=== PATIENT | female | born 1940 | race African-American/Black ===

== ENCOUNTER 2017-05-20 17:51 | Inpatient (IN) | payer MEDICARE, MEDICAID ==
[2017-05-20] MEDS ORDERED: EPINEPHrine 1 MG/10 ML Abboject SYRINGE ONE (18:05)
[2017-05-20] MEDS ORDERED: Piperacillin/Tazobactam 4.5 GM VIAL ONE (18:31)
[2017-05-20] MEDS ORDERED: Sodium Chloride 0.9% 100 ML ONE (18:32)
[2017-05-20] MEDS ORDERED: Succinylcholine Chloride 20 MG/ML 10 ml SYRINGE FS ONE (18:42)
[2017-05-20 18:51] LABS: Bilirubin Negative (Negative); Blood, Urine Negative (Negative); Glucose, Urine (Dipstick) Negative (Negative); Ketone, Urine Negative (Negative); Nitrite Negative (Negative); Protein, Urine (Dipstick) Negative (Neg-Trace); Urobilinogen 0.2 mg/dL (0.2-1.0)
[2017-05-20] MEDS ORDERED: Norepinephrine 8 MG/0.9% NS 250 ML ONE (18:57)
--- NOTE | 2017-05-20 19:02 | RAD ---
AP CHEST: History: Sepsis. Date: 05-20-17 Comparison: 10-15-16 FINDINGS: AP chest demonstrates EKG leads seen over the chest. There is diffuse airspace opacities throughout both lungs, upper and lower lobes, as well as right m iddle lobe. These areas of airspace opacities have developed since the previous exam. Findings jose manuel rning for multilobar areas of possible pneumonia. No evidence of effusions or pneumothorax seen. IMPRESSION: 1. Extensive bilateral airspace opacities concerning for possible pneumonia. 2. Extensive aortic vascular calcifications. POS: [facility]
[2017-05-20] MEDS ORDERED: Fentanyl 20 MCG/ML 250 ML ONE (19:04)
[2017-05-20 19:14] LABS: Oxyhemoglobin 89.3 % (94.0-97.0); Sodium 151 mmol/L (135-148)
[2017-05-20 19:17] LABS: Modified Allen's Test POSITIVE; Vent NO
[2017-05-20 19:29] LABS: Hematocrit 31.1 % (36.0-47.0); Mean Platelet Volume 11.1 fL (7.4-10.4); Red Blood Cell (RBC) Count 3.31 mill/uL (4.20-5.40); White Blood Cell (WBC) Count 3.6 thou/uL (4.8-10.8)
[2017-05-20 19:42] LABS: Lactic Acid - Sepsis 2.1 mmol/L (0.5-2.2)
[2017-05-20] MEDS ORDERED: Vancomycin HCl 750 MG in Sodium Chloride 0.9% 250 ML 250 ML IVPB SCH (19:45)
[2017-05-20 19:47] LABS: ALT (SGPT) 17 U/L (8-55); AST (SGOT) 18 U/L (5-34); Alkaline Phosphatase 100 U/L (40-150); Anion Gap 20 mmol/L (10-20); BUN (Urea Nitrogen) 38 mg/dL (9.8-20.1); Bilirubin, Total 0.6 mg/dL (0.2-1.2); CK (CPK) 26 U/L (29-168); Calc. Creatinine Clearance 0 mL/min (70-130); Calcium 8.4 mg/dL (7.8-10.44); Carbon Dioxide 16 mmol/L (23-31); Chloride 117 mmol/L (98-107); Estimated GFR-MDRD 26; Globulin 3.6 g/dL (2.4-3.5)
[2017-05-20 19:50] LABS: Troponin I Less than 0.010 ng/mL (< 0.028)
[2017-05-20 19:52] LABS: Anisocytosis SLIGHT = 6-15 cells (100X) (0-5/hpf); Band 32 % (5-11); Metamyelocyte 2 % (0-0); Neutrophil 45 % (42-75); Nucleated RBC 9 % (0); Polychromasia SLIGHT = 2-3 cells (100X) (0-2/hpf); Schistocytes SLIGHT = 2-5 cells (100X) (0-1/hpf); Target Cells SLIGHT = 2-5 cells (100X) (0-1/hpf); Vacuoles SLIGHT
--- NOTE | 2017-05-20 20:11 | RAD ---
AP CHEST: History: Status post central line placement. Date: 05-20-17 Comparison: Earlier in the day. FINDINGS: AP chest demonstrates placement of nasogastric tube, distal tip over the left upper quadrant of the abdomen. The patient has been intubated. Endotracheal tube is in good position. Distal tip above car imelda. There has been placement of a right jugular central line, distal tip at the SVC and right atrial emmy ction. Diffuse interstitial and airspace opacities seen throughout the lungs, unchanged since the previous exam from earlier in the day. IMPRESSION: Interval placement of nasogastric, endotracheal tube, as well as right jugular central line. No evid ence of right sided pneumothorax seen. POS: [facility]
[2017-05-20] MEDS ORDERED: Sodium Chloride 0.9% 1,000 ML IV SCH (20:15)
[2017-05-20 20:31] LABS: Oxyhemoglobin 90.4 % (94.0-97.0); Sodium 149 mmol/L (135-148)
[2017-05-20] MEDS ORDERED: Vecuronium 10 MG VIAL IV PRN (20:33)
[2017-05-20 20:34] LABS: Mechanical Tidal Volume 450 ml; Mode SIMV; Modified Allen's Test POSITIVE; Pressure Support 10 cmH2O; Vent YES
--- NOTE | 2017-05-20 20:56 | CT ---
CT BRAIN: History: 76-year-old with altered mental status and hypotension. Left sided weakness. Technique: Noncontrast enhanced CT of the brain was obtained from the base of the skull through the vertex. Brain and bone windows obtained. FINDINGS: Images demonstrate no evidence of acute intracranial masses, hemorrhages, strokes or contusions. No significant evidence of intracranial pathology noted. There does appear to be old areas of stroke in the right mireya as well as a prominent cordal fissure cyst. POS: [facility]
[2017-05-20] MEDS ORDERED: Ventilator Sedation Protocol 1 EACH FS SCH (21:06)
[2017-05-20] MEDS ORDERED: Norepinephrine 8 MG/0.9% NS 250 ML IVPB SCH (21:06)
[2017-05-20] MEDS ORDERED: CCU Electrolyte Replacement 1 EACH FS SCH (21:06)
[2017-05-20] MEDS ORDERED: DISCONTINUE PREVIOUS NARCOTIC PAIN MEDICATIONS AND BENZODIAZEPINES FS SCH (21:13)
[2017-05-20] MEDS ORDERED: CCU ELECTROLYTE REPLACEMENT PROTOCOL FS PRN (21:13)
[2017-05-20] MEDS ORDERED: Morphine 4 MG/ML Carpuject SLOW IVP PRN (21:13)
[2017-05-20] MEDS ORDERED: Potassium Chloride 40 MEQ in Sodium Chloride 0.9% 250 ML 250 ML IVPB PRN (21:13)
[2017-05-20] MEDS ORDERED: Potassium Chloride 40 MEQ in Premix Bag 1 BAG IVPB PRN (21:13)
[2017-05-20] MEDS ORDERED: Potassium Phosphate 9 MMOL in Sodium Chloride 0.9% 100 ML IVPB PRN (21:13)
[2017-05-20] MEDS ORDERED: Magnesium 2 GM/NS 0.9% 100 ML 2 GM in Premix Bag 1 BAG IVPB PRN (21:13)
[2017-05-20] MEDS ORDERED: Potassium Phosphate 12 MMOL in Sodium Chloride 0.9% 250 ML 250 ML IV PRN (21:13)
[2017-05-20] MEDS ORDERED: Lorazepam 2 MG/ML VIAL SLOW IVP PRN (21:13)
[2017-05-20] MEDS ORDERED: Fentanyl 20 MCG/ML 250 ML IVPB SCH (21:13)
[2017-05-20] MEDS ORDERED: Potassium Chloride 20 MEQ TAB PO PRN (21:13)
[2017-05-20] MEDS ORDERED: Propofol 1,000 MG/100 ML VIAL IV PRN (21:13)
[2017-05-20] MEDS ORDERED: Potassium Phosphate 15 MMOL in Sodium Chloride 0.9% 250 ML 250 ML IV PRN (21:13)
[2017-05-20] MEDS ORDERED: Magnesium Oxide 400 MG TAB PO PRN ×2 (21:13)
[2017-05-20] MEDS ORDERED: Cefepime 2 GM in Sodium Chloride 0.9% 100 ML IVPB SCH (21:30)
[2017-05-20] MEDS: Sodium Bicarbonate 100 MEQ in Dextrose 5% in Water 1,000 ML IV SCH ×2 (22:07)
[2017-05-20] MEDS: Sodium Chloride 0.9% 1,000 ML IV SCH (22:08)
[2017-05-20] MEDS: Enoxaparin Sodium 30 MG/0.3 ML SYRINGE SC SCH (22:15)
[2017-05-20 22:26] LABS: Lactic Acid - Sepsis 2.8 mmol/L (0.5-2.2)
--- NOTE | 2017-05-20 23:01 | HP ---
DATE OF ADMISSION: 05/20/2017 CHIEF COMPLAINT: Septic shock. HISTORY OF PRESENT ILLNESS: Ms. Mcconnell is a 76-year-old -[place] female with a history of ce rebrovascular disease, diabetes, hypertension, and diabetic retinopathy, who presented to the emerge ncy department today on sepsis alert. EMS brought her to the emergency department earlier today for low blood pressure. The family found her not responding appropriately. On the scene, the patient was noted to have left-sided weakness, facial droop, and really was not able to respond appropriately. The patient was able to take a deep breath on command and she was becoming more and more responsive but then became hypotensive and shavonne pped her systolic pressure to 74. Glucose was okay. She was given 1 liter fluid bolus of normal sa line and transported to the emergency department for evaluation. There she was found to be in septic shock and received several 2-3 liters of IV fluids in the ER for ultimately being transferred up to the ICU. The patient was intubated and sedated when I saw her and was unable to give any history. She was hy pothermic on presentation with a low blood pressure of 69/39. By the time, I had seen her and transferred her to the ICU, her pressure did come up to a normal ran ge and she was having good air on the vent. ER workup revealed bilateral patchy infiltrates, labs showed a white blood cell count slightly low a t 3.6, hemoglobin of 9.8, and hematocrit of 31.1. She did have 32% bands present. Blood gas presentation medical center showed a pH of 7.18 and her ER labs showed a creatinine of 2.23, which is certainly above her ba seline of around 1-1.2. We were called for admission. She was seen and evaluated initially in the ER and again when she arr ived on the unit. She required Levophed in the emergency department and we titrated up to a MAP of 65, on arrival to the unit, her systolic blood pressure in the 150s. The patient is unable to give any further history. PAST MEDICAL HISTORY: 1. Cerebrovascular disease with history of a stroke. 2. Diabetes mellitus type 2. 3. Hyperlipidemia. 4. Hypertension with diabetic retinopathy. PAST SURGICAL HISTORY: Hysterectomy. HOME MEDICATIONS: Lipitor, Protonix, thiamine, CoQ10, amlodipine, hydralazine, tramadol, Zestril, a nd aspirin. ALLERGIES: NKDA. FAMILY HISTORY: Not obtainable. SOCIAL HISTORY: Not obtainable due to mental status. REVIEW OF SYSTEMS: Not obtainable due to sedation, intubated status. PHYSICAL EXAMINATION: VITAL SIGNS: Temperature on arrival 91.9, pulse 72, blood pressure 69/39, respiratory rate 23, satt ing 100% on nonrebreather. Vital signs on arrival to the ICU showed her blood pressure 102/66 with a pulse of 82, satting 100% on a 100% FIO2 on SIMV with a tidal volume of 450, pressure support of 1 0. GENERAL: The patient was sedated on the ventilator. She appeared to be in no distress. HEENT: Normocephalic, atraumatic. The oral endotracheal tube in place. Mucous membranes are moist . Pupils are equal, round, and reactive to light bilaterally. NECK: Supple. There is no lymphadenopathy or JVD. LUNGS: Have coarse bilateral breath sounds. She had symmetrical chest excursion and good air movem ent. ABDOMEN: Soft. She had normoactive bowel sounds. It was not distended. EXTREMITIES: Showed no cyanosis, no clubbing. She was on a Angelita Hugger, so her extremities were wa rm. She had a decreased capillary refill around 4 seconds. NEUROLOGIC: Not testable due to mental status. She did withdraw from pain on the right more than t he left. MUSCULOSKELETAL: Normal to inspection. She has no inflamed joints and no palpable joint effusions. SKIN: Had no obvious lesions. LABORATORY DATA: CBC showed a white count of 3.6, hemoglobin 9.8, hematocrit of 31.1, platelet coun t of 132,000. She had 45% granulocytes and 32% bands. ABG: A pH of 7.18, pCO2 of 54, pO2 of 79, O2 sat 92% with a repeat on arrival to the ICU of 7.22 wi th a pCO2 down to 48. Labs in the ER showed a sodium of 148, potassium 5.4, chloride 117, carbon di oxide of 16 with anion gap of 20, creatinine was 2.23 from a baseline of 1.2-1.3, glucose of 144. L actic acid initially was 2.1 with repeat pending. Liver functions were fairly normal. CK low at 26 , CK-MB normal at 2.4, and troponin I negative at 0.010. Urinalysis was clean. A chest x-ray on arrival to the ER at 1801 hours showed extensive bibasilar airspace opacities jose manuel rning for pneumonia and vascular calcifications. Brain CT showed no acute intracranial abnormalitie s. Repeat chest x-ray at 1852 hours, post-intubation, nasogastric tube placement, and right IJ plac ement showed no evidence of pneumothorax and good positioning of her central venous catheter, and en dotracheal tube in good position. ASSESSMENT AND PLAN: 1. Septic shock: The patient did not respond to fluid resuscitation requiring pressors. She had b een adequately hydrated now with a total of 5 liters and we will continue IV fluids at 200 per hour. Pulmonary Critical Care has been consulted. She has central line placement and we will follow up on their recommendations. 2. Community-acquired pneumonia: The patient was in the hospital just under 60 days ago. She has diffuse bilateral airspace opacities consistent with atypical pneumonia. She received Zosyn in the ER, we will continue on cefepime, vancomycin, and levofloxacin. We will get respiratory bacterial a nd viral pathogen nucleic acid testing and check a Legionella urinary antigen. 3. Acute hypoxemic respiratory failure: The patient is currently intubated on the ventilator. Jyoti nunes has been managing upon arrival to the ICU. I appreciate their assistance. 4. Diabetes mellitus type 2: Sliding scale insulin will be instituted. 5. Hyperlipidemia. 6. Hypertension. Forty-five minutes of critical care time were spent upon admission to the ICU.
[2017-05-21] MEDS ORDERED: Dextrose 50% Abboject 50 ML SYRINGE IVP PRN (00:26)
[2017-05-21] MEDS ORDERED: Dextrose 5% in Water 1,000 ML IV PRN (00:26)
[2017-05-21] MEDS: HumaLOG 300 UNITS/3 ML VIAL SC PRN ×7 (00:33→23:58)
[2017-05-21 01:02] LABS: LegU Control Bar Appear? YES (CONTROL BAR); LegionellaU Control Bkground? CLEAR/WHITE (CLR/WHITE)
[2017-05-21] MEDS: Sodium Chloride 0.9% 1,000 ML IV SCH (02:29)
[2017-05-21 04:07] LABS: Anion Gap 18 mmol/L (10-20); BUN (Urea Nitrogen) 38 mg/dL (9.8-20.1); Calc. Creatinine Clearance 16 mL/min (70-130); Calcium 8.3 mg/dL (7.8-10.44); Carbon Dioxide 17 mmol/L (23-31); Chloride 115 mmol/L (98-107); Estimated GFR-MDRD 25
[2017-05-21 04:34] LABS: Band 31 % (5-11); Hematocrit 30.2 % (36.0-47.0); Mean Platelet Volume 9.2 fL (7.4-10.4); Metamyelocyte 20 % (0-0); Neutrophil 40 % (42-75); Nucleated RBC 1 % (0); Polychromasia SLIGHT = 2-3 cells (100X) (0-2/hpf); Red Blood Cell (RBC) Count 3.38 mill/uL (4.20-5.40); White Blood Cell (WBC) Count 4.4 thou/uL (4.8-10.8)
--- NOTE | 2017-05-21 05:53 | CON ---
DATE OF CONSULTATION: 05/20/2017 HISTORY OF PRESENT ILLNESS: Ms. Mcconnell is a 76-year-old female. She presented with altered mental s tatus and respiratory distress. She subsequently has been intubated and had a central line placed. I was consulted to assist in her management. Chest radiograph compared to old films shows patchy bi lateral alveolar infiltrates. Head CT was done on transport up to the ICU that does not show any acute hemorrhage. She is on a low dose of Levophed. She has had at least 3 L of fluid in the emergency department. A ntimicrobial therapy has been started by our hospitalist. PAST MEDICAL HISTORY: Remarkable for hypertension, chronic kidney disease, left hemiparesis after s troke with recovery, lipid disorder, type 2 diabetes, and hysterectomy. SOCIAL HISTORY: Nonsmoker, nondrinker, apparently lives with her daughter. MEDICATIONS: Have been reviewed. REVIEW OF SYSTEMS: Not obtainable. She is an intubated patient with a pressure over 100 systolic o n 10 mcg of Levophed. She has a right internal jugular catheter. PHYSICAL EXAMINATION: NECK: Supple. LUNGS: Remarkable for rhonchi anteriorly. HEART: Regular rhythm. ABDOMEN: Soft and nontender, without guarding or rigidity. EXTREMITIES: Without asymmetry. LABORATORY AND X-RAY FINDINGS: White count 3.6, hemoglobin 9.8, platelets 132, 32% bands on a perip heral smear. Sodium 148, potassium 5.4, chloride 117, bicarbonate 16, BUN 38, creatinine 2.23. Her creatinine was 1.07 in September. Blood gas showed pH 7.18, pCO2 of 54, and pO2 of 79. IMPRESSION: 1. Respiratory failure associated with pneumonia. 2. Clinical sepsis and intravascular volume depletion. 3. Hypernatremia and hyperchloremia, most likely secondary to intravascular volume depletion. 4. Borderline hyperkalemia that improved with improved renal perfusion. 5. History of diabetes with hemoglobin A1c in February of this year at 9.5. 6. History of cerebrovascular accident. 7. Hypoalbuminemia today with greater than 1000 glucose, but surprisingly only 30 mg/dL protein in her urine. 8. Cachexia by exam. PLAN: Ventilation pressor support, antimicrobial therapy. Check cortisol level. Hopefully, we eddie l see clinical improvement in the next 24-48 hours.
[2017-05-21 07:00] LABS: Oxyhemoglobin 95.7 % (94.0-97.0); Sodium 148 mmol/L (135-148)
[2017-05-21 07:03] LABS: Mechanical Tidal Volume 450 ml; Mode SIMV; Modified Allen's Test POSITIVE; Pressure Support 10 cmH2O; Vent YES
--- NOTE | 2017-05-21 08:43 | RAD ---
PORTABLE SEMI UPRIGHT FRONTAL CHEST RADIOGRAPH: Date: 05-21-17 Comparison: 05-20-17 History: Pneumonia, intubated patient. FINDINGS: Endotracheal tube and nasogastric tube are in proper position. There is atherosclerotic calcificatio n of the aorta arch. There is no pneumothorax seen on either side. Mild blunting of bilateral costophrenic angles suggest small volume bilateral pleural effusion. Ther e is coarse linear density in the perihilar regions in both lung bases suggesting interstitial opaci ty. There is bilateral perihilar and basilar airspace disease, slightly improved since the 05-20-17 exam. IMPRESSION: Interstitial and alveolar opacity in the perihilar regions in both lung bases, slightly improved. Th is suggests improving pulmonary edema. Infectious pneumonitis or aspiration is a possibility. Contin ued follow up to full resolution is advised. POS: [facility]
[2017-05-21] MEDS ORDERED: FLU VACC TS2017-18 (>65YR) 0.5 ML SYRINGE IM ONE (09:00)
[2017-05-21] MEDS: Cefepime 2 GM, Admixture Fee 1 EACH in Sodium Chloride 0.9% 100 ML IVPB SCH (09:21)
[2017-05-21] MEDS: Famotidine/PF 20 mg/2ml Vial SLOW IVP SCH (09:22)
[2017-05-21] MEDS: Sodium Bicarbonate 100 MEQ in Dextrose 5% in Water 1,000 ML IV SCH ×4 (09:59→19:57)
[2017-05-21] MEDS ORDERED: Sodium Chloride 0.9% 1,000 ML IV SCH (10:15)
--- NOTE | 2017-05-21 10:31 | PRG ---
DATE OF SERVICE: 05/21/2017 CRITICAL CARE PROGRESS NOTE Thirty-five minutes critical care time. SUBJECTIVE: Ms. Mcconnell was admitted last night with septic shock secondary to pneumonia. She has ac regla respiratory failure and is currently on mechanical ventilation. Her daughter is at the bedside while I am examining the patient. PHYSICAL EXAMINATION: VITAL SIGNS: Temperature is 97.6, pulse 57, blood pressure 119/60. She is currently on Levophed at 2 mcg per minute. She is also on sodium bicarbonate drip. HEENT: Unremarkable. NECK: No JVD. LUNGS: Fairly clear. CARDIAC: S1 and S2 regular, without murmur. ABDOMEN: Soft, nontender. EXTREMITIES: No clubbing, cyanosis or edema. She has very little urine output. Her CV pressure is about x0. LABORATORY DATA: Sodium 148, potassium 5.4, chloride 117, CO2 16, BUN 38, creatinine 2.2, and gluco se 144. Cortisol level was 18.9, pH 7.39, pCO2 of 28, pO2 of 87 on SIMV rate 28, tidal volume of 45 0, PEEP 5, pressure support 10, FiO2 40%. White blood cell count 4.4, hemoglobin 9.8, hematocrit 30 .2, and platelet count 144. ASSESSMENT: 1. Pneumonia. 2. Septic shock. 3. Severe hypovolemia. PLAN: 1. Bolus a liter of normal saline and monitor CVP. 2. Continue cefepime, Levaquin, and vancomycin, renal base doses. 3. Add vitamin C and thiamine in addition to hydrocortisone she is already getting. 4. Pepcid for GI prophylaxis. 5. Enoxaparin for DVT prophylaxis. 6. Discussed with family at bedside.
--- NOTE | 2017-05-21 13:34 | PDOC.PN ---
- Subjective Encounter Start Date: 05/21/17 Encounter Start Time: 13:32 Patient seen at bedside. No overnight events, no new complaints. - Objective Resuscitation Status: Resuscitation Status FULL:Full Resuscitation MAR Reviewed: Yes Vital Signs & Weight: Vital Signs (12 hours) Temp Pulse Resp BP Pulse Ox 05/21/17 12:00 97.7 F 22 H 05/21/17 10:21 73 107/60 05/21/17 10:00 22 H 05/21/17 08:00 97.6 F 28 H 05/21/17 07:43 97.8 F 78 28 H 100 05/21/17 07:00 97.8 F 05/21/17 06:33 71 150/83 H 05/21/17 06:00 28 H 05/21/17 04:00 98.1 F 28 H 05/21/17 02:24 86 141/61 H 05/21/17 02:00 28 H Most Recent Monitor Data Heart Rate from ECG 55 NIBP 84/43 NIBP BP-Mean 55 Respiration from ECG 22 SpO2 100 I&O: 05/20/17 05/21/17 05/22/17 06:59 06:59 06:59 Intake Total 2449.8 1019.6 Output Total 340 165 Balance 2109.8 854.6 Result Diagrams: 05/21/17 03:27 05/21/17 03:27 Additional Labs: Accuchecks 05/21/17 05/21/17 05/21/17 11:26 08:14 06:02 POC Glucose 212 H 140 H 151 H 05/21/17 05/21/17 05/21/17 04:00 02:13 00:09 POC Glucose 184 H 204 H 226 H 05/20/17 22:35 POC Glucose 195 H Phys Exam - Physical Examination Constitutional: NAD Intubated, Sedated ET Tube present Neck: no JVD Respiratory: clear to auscultation bilateral Bradycardia Gastrointestinal: soft Musculoskeletal: pulses present Dx/Plan (1) Acute respiratory failure Code(s): J96.00 - ACUTE RESPIRATORY FAILURE, UNSP W HYPOXIA OR HYPERCAPNIA Status: Acute (2) Bradycardia Code(s): R00.1 - BRADYCARDIA, UNSPECIFIED Status: Acute (3) Chronic kidney disease (CKD) Code(s): N18.9 - CHRONIC KIDNEY DISEASE, UNSPECIFIED Status: Chronic (4) DM2 (diabetes mellitus, type 2) Status: Chronic (5) Pneumonia Code(s): J18.9 - PNEUMONIA, UNSPECIFIED ORGANISM Status: Acute - Plan cont current plan of care, lyn catheter, continue antibiotics, respiratory therapy, DVT proph w/lovenox * Ventilator management per PCCM. * Broad spectrum antibiotics * IV fluids/Levophed- monitor CVP * Monitor Bun/Cr * Bradycardia- sedation related? Continue to Monitor * Daily Labs
[2017-05-21] MEDS: Enoxaparin Sodium 30 MG/0.3 ML SYRINGE SC SCH (20:00)
[2017-05-22 05:35] LABS: Band 13 % (5-11); Hematocrit 28.1 % (36.0-47.0); Mean Platelet Volume 9.6 fL (7.4-10.4); Neutrophil 82 % (42-75); Nucleated RBC 1 % (0); Red Blood Cell (RBC) Count 3.18 mill/uL (4.20-5.40); White Blood Cell (WBC) Count 11.1 thou/uL (4.8-10.8)
[2017-05-22 05:36] LABS: Anion Gap 17 mmol/L (10-20); BUN (Urea Nitrogen) 37 mg/dL (9.8-20.1); Calc. Creatinine Clearance 16 mL/min (70-130); Carbon Dioxide 23 mmol/L (23-31); Chloride 108 mmol/L (98-107); Estimated GFR-MDRD 24
[2017-05-22 05:43] LABS: Troponin I 0.023 ng/mL (< 0.028)
[2017-05-22] MEDS: HumaLOG 300 UNITS/3 ML VIAL SC PRN ×3 (05:58→16:48)
[2017-05-22] MEDS: Sodium Chloride 0.45% 1,000 ML IV SCH ×3 (08:10→23:00)
[2017-05-22] MEDS: Sodium Bicarbonate 100 MEQ in Dextrose 5% in Water 1,000 ML IV SCH ×2 (08:32)
--- NOTE | 2017-05-22 08:40 | PRG ---
DATE OF SERVICE: 05/22/2017 Thirty-five minutes critical care time. SUBJECTIVE: The patient remains intubated on mechanical ventilation. There have been no overt haider ges overnight. OBJECTIVE: VITAL SIGNS: Temperature is 97.4 with no fever overnight, pulse 40s to 60s, blood pressure 125/68. She is still on Levophed 0.5 mcg per minute. Total intake 3866, output 675. HEENT: Unremarkable. NECK: No JVD. CHEST: Fairly clear without wheezing. CARDIAC: S1 and S2 regular. ABDOMEN: Soft. EXTREMITIES: No edema. LABORATORY DATA: Sodium 141, potassium 3.9, chloride 108, CO2 of 23, BUN 37, creatinine 2.3, glucos e 174, troponin 0.023, pH 7.53, pCO2 of 26, PO2 of 107. White cell count 11.1, hematocrit 28.1, michael telet count 122. Chest x-ray shows improved bilateral infiltrates. ASSESSMENT: 1. Pneumonia. 2. Acute hypoxic respiratory failure. 3. Acidosis, which is improved. 4. Septic shock, which is improved. PLAN: 1. Decrease respiratory rate on vent. 2. Discontinue bicarbonate drip. 3. Discontinue vancomycin, as Streptococcus is growing out of her cultures. 4. Begin weaning with hopeful extubation tomorrow.
[2017-05-22] MEDS ORDERED: Cefepime 2 GM, Admixture Fee 1 EACH in Sodium Chloride 0.9% 100 ML IVPB SCH (09:00)
[2017-05-22] MEDS: Famotidine/PF 20 mg/2ml Vial SLOW IVP SCH (09:05)
[2017-05-22 09:52] LABS: Oxyhemoglobin 96.9 % (94.0-97.0)
[2017-05-22 09:53] LABS: Mechanical Tidal Volume 450 ml; Mode SIMV; Modified Allen's Test POSITIVE; Pressure Support 10 cmH2O; Sodium 143 mmol/L (135-148); Vent YES
[2017-05-22] MEDS: Cefepime 2 GM, Admixture Fee 1 EACH in Sodium Chloride 0.9% 100 ML IVPB SCH (10:00)
--- NOTE | 2017-05-22 10:05 | RAD ---
PORTABLE CHEST ONE VIEW: Date: 05-22-17 Time: 5:29 a.m. History: Respiratory failure. FINDINGS/IMPRESSION: Comparison made with exam from previous day. There is mild interval increase in density in the right lower lung. Remainder of the exam is otherwise stable. POS: [facility]
--- NOTE | 2017-05-22 13:36 | PDOC.PN ---
- Subjective Encounter Start Date: 05/22/17 Encounter Start Time: 13:35 Patient seen at bedside. No overnight events, remains on the ventilator no new complaints. - Objective Resuscitation Status: Resuscitation Status FULL:Full Resuscitation Vital Signs & Weight: Vital Signs (12 hours) Temp Pulse Resp BP Pulse Ox 05/22/17 12:00 98.1 F 12 05/22/17 10:45 55 L 140/57 L 05/22/17 10:00 12 05/22/17 08:00 97.4 F L 53 L 12 98 05/22/17 06:57 52 L 125/68 05/22/17 06:00 22 H 05/22/17 04:00 22 H 05/22/17 03:00 97.4 F L 05/22/17 02:25 66 137/60 05/22/17 02:00 22 H Weight Admit Weight 113 lb Weight 116 lb 9.992 oz Most Recent Monitor Data Heart Rate from ECG 52 NIBP 128/56 NIBP BP-Mean 84 Respiration from ECG 17 SpO2 99 I&O: 05/21/17 05/22/17 05/23/17 06:59 06:59 06:59 Intake Total 2449.8 3866.4 292.5 Output Total 340 675 160 Balance 2109.8 3191.4 132.5 Result Diagrams: 05/22/17 04:58 05/22/17 04:58 Additional Labs: Accuchecks 05/22/17 05/22/17 05/21/17 10:32 05:56 23:57 POC Glucose 177 H 214 H 171 H 05/21/17 18:08 POC Glucose 267 H Phys Exam - Physical Examination Constitutional: NAD HEENT: moist MMs Neck: no JVD Respiratory: clear to auscultation bilateral Cardiovascular: RRR Gastrointestinal: soft Musculoskeletal: no edema Dx/Plan (1) Acute respiratory failure Code(s): J96.00 - ACUTE RESPIRATORY FAILURE, UNSP W HYPOXIA OR HYPERCAPNIA Status: Acute (2) Bradycardia Code(s): R00.1 - BRADYCARDIA, UNSPECIFIED Status: Acute (3) Chronic kidney disease (CKD) Code(s): N18.9 - CHRONIC KIDNEY DISEASE, UNSPECIFIED Status: Chronic (4) DM2 (diabetes mellitus, type 2) Status: Chronic (5) Pneumonia Code(s): J18.9 - PNEUMONIA, UNSPECIFIED ORGANISM Status: Acute - Plan cont current plan of care, lyn catheter, continue antibiotics, respiratory therapy * Ventilator Management per PCCM. Weaning parameters for extubation tomorrow * Narrow antibiotics. Discontinue Vancomycin * D/C Bicarbonate drip * Tube Feeds * DVT/GI ppx
[2017-05-22] MEDS: Enoxaparin Sodium 30 MG/0.3 ML SYRINGE SC SCH (21:57)
[2017-05-22] MEDS ORDERED: Vancomycin HCl 1 GM in Premix Bag 1 BAG IVPB SCH (22:00)
[2017-05-23] MEDS: HumaLOG 300 UNITS/3 ML VIAL SC PRN ×2 (05:02→10:52)
[2017-05-23 05:07] LABS: Anion Gap 16 mmol/L (10-20); BUN (Urea Nitrogen) 38 mg/dL (9.8-20.1); Calc. Creatinine Clearance 15 mL/min (70-130); Calcium 7.9 mg/dL (7.8-10.44); Carbon Dioxide 23 mmol/L (23-31); Chloride 107 mmol/L (98-107); Estimated GFR-MDRD 22
[2017-05-23 05:15] LABS: Band 17 % (5-11); Hematocrit 30.3 % (36.0-47.0); Mean Platelet Volume 10.7 fL (7.4-10.4); Neutrophil 76 % (42-75); Nucleated RBC 2 % (0); White Blood Cell (WBC) Count 11.8 thou/uL (4.8-10.8)
--- NOTE | 2017-05-23 08:14 | PRG ---
DATE OF SERVICE: 05/23/2017 A 35 minutes critical care time. SUBJECTIVE: The patient remains intubated on mechanical ventilation. She will wake up when sedatio n is off. OBJECTIVE: VITAL SIGNS: On exam, temperature 98.7, pulse 65, blood pressure 155/70, O2 saturation 96%, 24-hour intake 2932, output 630. HEENT: Unremarkable. NECK: No JVD. LUNGS: Fairly clear. CARDIAC: S1 and S2 regular. ABDOMEN: Soft. EXTREMITIES: No edema. X-RAY FINDINGS: Chest x-ray shows faint right lower lobe infiltrate. ET tube is in good position, central line in good position. LABORATORY DATA: Sodium 142, potassium 4.3, chloride 107, CO2 23, BUN 38, creatinine 2.6, glucose 1 62. White blood cell count 11.8, hematocrit 30.3, platelet count 124. ASSESSMENT: 1. Acute respiratory failure requiring mechanical ventilation. 2. Pneumonia. 3. Improved metabolic acidosis. 4. Renal insufficiency. 5. Resolved septic shock. PLAN: 1. I would like to perform spontaneous breathing trial and reassess her for the potential for extub ation. 2. Continue IV antibiotics. 3. Speak with family when they are available.
--- NOTE | 2017-05-23 08:20 | RAD ---
PORTABLE CHEST: History: Dyspnea. CCU follow up. Comparison: 05-22-17 FINDINGS/IMPRESSION: Cardiomegaly. Bibasilar infiltrates and/or atelectasis with evidence of small effusions. ET tube and NG tube unchanged. Chest not significantly changed from yesterday. POS: [facility]
[2017-05-23] MEDS ORDERED: Cefepime 2 GM, Admixture Fee 1 EACH in Sodium Chloride 0.9% 100 ML IVPB SCH (09:00)
[2017-05-23] MEDS: Cefepime 1 GM, Admixture Fee 1 EACH in Sodium Chloride 0.9% 100 ML IVPB SCH (09:10)
[2017-05-23] MEDS: Famotidine/PF 20 mg/2ml Vial SLOW IVP SCH (09:11)
[2017-05-23] MEDS: Sodium Chloride 0.45% 1,000 ML IV SCH ×2 (09:12→23:01)
--- NOTE | 2017-05-23 11:19 | PDOC.PN ---
- Subjective Encounter Start Date: 05/23/17 Encounter Start Time: 11:17 - Objective Resuscitation Status: Resuscitation Status FULL:Full Resuscitation MAR Reviewed: Yes Vital Signs & Weight: Vital Signs (12 hours) Temp Pulse Resp BP Pulse Ox 05/23/17 06:21 94 155/70 H 05/23/17 06:15 103 H 14 90 L 05/23/17 06:00 12 05/23/17 04:00 98.7 F 15 05/23/17 02:14 70 147/61 H 05/23/17 02:00 12 05/23/17 00:00 98.2 F 12 Weight Admit Weight 113 lb Weight 118 lb 9.739 oz Most Recent Monitor Data Heart Rate from ECG 62 NIBP 176/80 NIBP BP-Mean 109 Respiration from ECG 1 SpO2 98 I&O: 05/22/17 05/23/17 05/24/17 06:59 06:59 06:59 Intake Total 3866.4 2932.4 Output Total 675 630 Balance 3191.4 2302.4 Result Diagrams: 05/23/17 04:20 05/23/17 04:20 Additional Labs: Accuchecks 05/23/17 05/23/17 05/22/17 10:47 04:11 22:12 POC Glucose 167 H 198 H 121 H 05/22/17 16:47 POC Glucose 183 H Phys Exam - Physical Examination Constitutional: NAD HEENT: moist MMs Neck: no JVD Respiratory: clear to auscultation bilateral Cardiovascular: RRR Gastrointestinal: soft Musculoskeletal: pulses present Neurological: moves all 4 limbs Dx/Plan (1) Acute respiratory failure Code(s): J96.00 - ACUTE RESPIRATORY FAILURE, UNSP W HYPOXIA OR HYPERCAPNIA Status: Acute (2) Bradycardia Code(s): R00.1 - BRADYCARDIA, UNSPECIFIED Status: Resolved (3) Chronic kidney disease (CKD) Code(s): N18.9 - CHRONIC KIDNEY DISEASE, UNSPECIFIED Status: Chronic (4) DM2 (diabetes mellitus, type 2) Status: Chronic (5) Pneumonia Code(s): J18.9 - PNEUMONIA, UNSPECIFIED ORGANISM Status: Acute - Plan cont current plan of care, lyn catheter, continue antibiotics, neonatal social worker , respiratory therapy, DVT proph w/SCDs * Ventilator Management per [facility]. Begin weaning trials and evaluate for extubation * IV antibiotics (Levaquin) * Duonebs/Steroids * Monitor Renal function * Daily Labs * GI/DVT ppx
[2017-05-23] MEDS: Enoxaparin Sodium 30 MG/0.3 ML SYRINGE SC SCH (20:58)
[2017-05-24] MEDS: HumaLOG 300 UNITS/3 ML VIAL SC PRN ×3 (04:34→22:25)
[2017-05-24 05:08] LABS: Anion Gap 20 mmol/L (10-20); BUN (Urea Nitrogen) 39 mg/dL (9.8-20.1); Calc. Creatinine Clearance 17 mL/min (70-130); Carbon Dioxide 19 mmol/L (23-31); Chloride 107 mmol/L (98-107); Estimated GFR-MDRD 25
[2017-05-24 05:55] LABS: Band 6 % (5-11); Hematocrit 29.2 % (36.0-47.0); Mean Platelet Volume 9.4 fL (7.4-10.4); Neutrophil 89 % (42-75); Nucleated RBC 22 % (0); Red Blood Cell (RBC) Count 3.29 mill/uL (4.20-5.40); White Blood Cell (WBC) Count 10.2 thou/uL (4.8-10.8)
[2017-05-24] MEDS: Famotidine 20 MG TAB PER TUBE SCH (09:00)
--- NOTE | 2017-05-24 09:07 | PRG ---
DATE OF SERVICE: 05/24/2017 A 30 minutes critical care time. SUBJECTIVE: The patient is doing very well, has been on spontaneous breathing trial this morning an d passed. PHYSICAL EXAMINATION: VITAL SIGNS: Temperature is 98.6, pulse 97, blood pressure 171/81, 24-hour intake 2598, output 2095 . HEENT: Unremarkable. NECK: No JVD. CHEST: Clear to auscultation without wheezing. CARDIAC: S1 and S2 regular. ABDOMEN: Soft. EXTREMITIES: No edema. X-RAY FINDINGS: Chest x-ray shows hyperinflation and clearing infiltrates bilaterally. LABORATORY DATA: White blood cell count 10, hematocrit 39.2, platelet count 146. PH 7.53, pCO2 of 26, PO2 of 107. Sodium 142, potassium 4.3, chloride 107, CO2 19, BUN 39, creatinine 2.3, glucose 19 4. ASSESSMENT: 1. Acute respiratory failure requiring mechanical ventilation. 2. Pneumonia. 3. Chronic renal insufficiency. 4. Resolved septic shock. PLAN: 1. The patient was extubated. She was able to verbalize after. 2. Initiate speech therapy consult to make sure it is safe for swallowing. 3. Continue IV antibiotics. 4. I cleaned up her medication list. 5. Can probably go to the floor tomorrow if she has a good day today.
--- NOTE | 2017-05-24 09:53 | RAD ---
PORTABLE CHEST 1 VIEW: Date: 05/24/17 Time: 0452 hours HISTORY: Respiratory failure. FINDINGS/IMPRESSION: No significant interval change is seen since the previous day's exam. POS: [facility]
[2017-05-24] MEDS ORDERED: Sterile Water 10 ML ONE (10:14)
[2017-05-24] MEDS: Cefepime 1 GM, Admixture Fee 1 EACH in Sodium Chloride 0.9% 100 ML IVPB SCH (10:49)
[2017-05-24] MEDS: Sodium Chloride 0.45% 1,000 ML IV SCH ×2 (10:55→20:48)
--- NOTE | 2017-05-24 15:36 | PDOC.PN ---
- Subjective Encounter Start Date: 05/24/17 Encounter Start Time: 15:00 Subjective: Extubated this AM, mumbling and not understandable - Objective Resuscitation Status: Resuscitation Status FULL:Full Resuscitation MAR Reviewed: Yes Vital Signs & Weight: Vital Signs (12 hours) Temp Pulse Resp Pulse Ox 05/24/17 14:15 85 14 05/24/17 12:00 97.8 F 100 05/24/17 10:21 90 24 H 05/24/17 09:00 98.3 F 05/24/17 08:00 98.3 F 85 14 99 05/24/17 06:10 92 05/24/17 06:00 19 05/24/17 04:00 98.6 F 16 Weight Admit Weight 113 lb Weight 121 lb 0.54 oz Most Recent Monitor Data Heart Rate from ECG 88 NIBP 103/81 NIBP BP-Mean 87 Respiration from ECG 21 SpO2 87 I&O: 05/23/17 05/24/17 05/25/17 06:59 06:59 06:59 Intake Total 2932.4 2598.2 41.6 Output Total 630 2095 945 Balance 2302.4 503.2 -903.4 Result Diagrams: 05/24/17 04:40 05/24/17 04:40 Additional Labs: Accuchecks 05/24/17 05/24/17 05/23/17 11:40 04:30 21:00 POC Glucose 165 H 195 H 172 H 05/23/17 17:59 POC Glucose 137 H Phys Exam - Physical Examination Constitutional: NAD HEENT: moist MMs Respiratory: no wheezing, no rales, no rhonchi Cardiovascular: RRR Gastrointestinal: soft Musculoskeletal: no edema decreased strength in LUE Psychiatric: normal affect Dx/Plan (1) Septic shock Code(s): A41.9 - SEPSIS, UNSPECIFIED ORGANISM; R65.21 - SEVERE SEPSIS WITH SEPTIC SHOCK Status: Resolved (2) Pneumonia Code(s): J18.9 - PNEUMONIA, UNSPECIFIED ORGANISM Status: Acute Comment: on Levaquin and Cefepime (3) Acute respiratory failure Code(s): J96.00 - ACUTE RESPIRATORY FAILURE, UNSP W HYPOXIA OR HYPERCAPNIA Status: Resolved Comment: Extubated this AM (4) DM2 (diabetes mellitus, type 2) Status: Chronic Comment: Blood sugars less than 200 (5) HTN (hypertension) Code(s): I10 - ESSENTIAL (PRIMARY) HYPERTENSION Status: Chronic - Plan cont current plan of care, continue antibiotics, DVT proph w/lovenox * . - Discharge Day Encounter end time: 16:00
[2017-05-24] MEDS: Enoxaparin Sodium 30 MG/0.3 ML SYRINGE SC SCH (20:49)
[2017-05-25 04:28] LABS: Anion Gap 18 mmol/L (10-20); BUN (Urea Nitrogen) 38 mg/dL (9.8-20.1); Calc. Creatinine Clearance 21 mL/min (70-130); Calcium 8.5 mg/dL (7.8-10.44); Carbon Dioxide 21 mmol/L (23-31); Chloride 109 mmol/L (98-107); Estimated GFR-MDRD 30
[2017-05-25 04:34] LABS: Band 1 % (5-11); Hematocrit 29.9 % (36.0-47.0); Mean Platelet Volume 9.6 fL (7.4-10.4); Neutrophil 94 % (42-75); Nucleated RBC 4 % (0); Red Blood Cell (RBC) Count 3.32 mill/uL (4.20-5.40); White Blood Cell (WBC) Count 11.3 thou/uL (4.8-10.8)
[2017-05-25] MEDS: Sodium Chloride 0.45% 1,000 ML IV SCH ×2 (05:45→15:55)
--- NOTE | 2017-05-25 08:30 | RAD ---
CHEST 1 VIEW: Date: 05/25/17 COMPARISON: 05/24/17. FINDINGS: Stable right-sided central venous catheter. Interval removal of endotracheal and nasogastric tube. P ersistent atherosclerosis. Persistent opacification in lung bases with small bilateral effusions. Pa renchymal changes in the left and right lung base are also noted. Hyperinflation is present. No pneu mothorax. IMPRESSION: 1. Persistent pleural and parenchymal changes in lung bases. 2. Hyperinflation. 3. Atherosclerosis. POS: DEWEY
[2017-05-25] MEDS: Famotidine 20 MG TAB PER TUBE SCH (08:55)
[2017-05-25] MEDS: Cefepime 1 GM, Admixture Fee 1 EACH in Sodium Chloride 0.9% 100 ML IVPB SCH (09:20)
--- NOTE | 2017-05-25 09:57 | PDOC.PN ---
- Subjective Encounter Start Date: 05/25/17 Encounter Start Time: 08:00 -: non-verbal Pt seen and examined on rounds. I have not seen the patient in days since her admit date. Pt has been extubated yesterday, remains stable on NC. No acute events reported overnight. Pt mumbles to verbal and tactile stimulation, but is not conversant. No f/C, no n/V/D/C overnight. Cough sounds wet and very weak. POS not obtainable due to pt condition - Objective Resuscitation Status: Resuscitation Status FULL:Full Resuscitation MAR Reviewed: Yes Vital Signs & Weight: Vital Signs (12 hours) Temp Pulse Resp Pulse Ox 05/25/17 07:26 98.5 F 105 H 15 98 05/25/17 07:00 98.5 F 05/25/17 06:13 79 21 H 05/25/17 04:00 97.5 F L 05/25/17 02:50 100 05/25/17 00:00 97.4 F L 05/24/17 23:07 81 22 H 100 Weight Admit Weight 113 lb Weight 124 lb 8.979 oz Most Recent Monitor Data Heart Rate from ECG 87 NIBP 143/81 NIBP BP-Mean 96 Respiration from ECG 16 SpO2 100 I&O: 05/24/17 05/25/17 05/26/17 06:59 06:59 06:59 Intake Total 2598.2 2490.6 Output Total 2095 2702 300 Balance 503.2 -211.4 -300 Result Diagrams: 05/25/17 03:27 05/25/17 03:27 Additional Labs: Accuchecks 05/25/17 05/24/17 05/24/17 04:33 22:22 16:47 POC Glucose 145 H 175 H 139 H 05/24/17 11:40 POC Glucose 165 H Radiology Reviewed by me: Yes EKG Reviewed by me: Yes Phys Exam - Physical Examination Constitutional: NAD chronically ill-appearing HEENT: PERRLA, sclera anicteric, oral pharynx no lesions Neck: no nodes, no JVD, supple, full ROM coarse bilaterla rales, no wheezing, poor air exchange. Cardiovascular: RRR, no rub 2-3/6 ILENE LUSB Gastrointestinal: soft, non-tender, no distention, positive bowel sounds Musculoskeletal: pulses present, edema present Neurological: moves all 4 limbs Lymphatic: no nodes Skin: no rash, cap refill <2 seconds Dx/Plan (1) Chronic kidney disease (CKD) Code(s): N18.9 - CHRONIC KIDNEY DISEASE, UNSPECIFIED Status: Chronic Qualifiers: Chronic kidney disease stage: stage 3 (moderate) Qualified Code(s): N18.3 - Chronic kidney disease, stage 3 (moderate) Comment: YAYA on CKD 3 improving slowly (2) Septic shock Code(s): A41.9 - SEPSIS, UNSPECIFIED ORGANISM; R65.21 - SEVERE SEPSIS WITH SEPTIC SHOCK Status: Resolved (3) Pneumonia Code(s): J18.9 - PNEUMONIA, UNSPECIFIED ORGANISM Status: Acute Qualifiers: Pneumonia type: due to unspecified organism Laterality: bilateral Lung location: lower lobe of lung Qualified Code(s): J18.9 - Pneumonia, unspecified organism Comment: on Levaquin and Cefepime (4) Toxic metabolic encephalopathy Code(s): G92 - TOXIC ENCEPHALOPATHY Status: Acute Comment: due to pneumonia , septic shock, YAYA oin CKD. stable form yesterdya, unsure of basleine (5) DM2 (diabetes mellitus, type 2) Status: Chronic Qualifiers: Diabetes mellitus complication status: with hyperglycemia Diabetes mellitus shelter insulin use: unspecified shelter insulin use status Qualified Code(s): E11.65 - Type 2 diabetes mellitus with hyperglycemia Comment: Blood sugars less than 200 (6) HTN (hypertension) Code(s): I10 - ESSENTIAL (PRIMARY) HYPERTENSION Status: Chronic Qualifiers: Hypertension type: essential hypertension Qualified Code(s): I10 - Essential (primary) hypertension - Plan cont current plan of care, continue antibiotics, PT/OT, speech therapy, respiratory therapy, DVT proph w/SCDs * .
[2017-05-25] MEDS: HumaLOG 300 UNITS/3 ML VIAL SC PRN ×2 (10:08→21:37)
--- NOTE | 2017-05-25 16:31 | PRG ---
DATE OF SERVICE: 05/25/2017 SUBJECTIVE: Mr. Mcconnell is doing well. He has no respiratory distress since extubation. He has not passed a swallowing evaluation yet. He is still n.p.o. He has improved his swallowing function between yesterday and today I am told , so we will place a Dobbhoff for an NG tube until we reevaluate his swallowing tomorrow. OBJECTIVE: VITAL SIGNS: His heart rate is 68, respiratory rate is 19, and blood pressure 169/84. Intake and output is negative 211. LUNGS: Clear. HEART: Regular rhythm. ABDOMEN: Soft. DIAGNOSTIC DATA: Chest radiograph today shows persistent haziness in both bases. IMPRESSION: 1. Acute respiratory failure, chronic ventilation, stable post-extubation. 2. Pneumonia ? aspiration mediated. 3. Chronic kidney disease. 4. Resolved sepsis. Recheck blood cultures again. He has micrococcus on one blood culture and alpha strep on another blood culture. I suspect micrococcus is a contaminant. He remains on IV antimicrobial therapy. [facility]
[2017-05-25] MEDS: Enoxaparin Sodium 30 MG/0.3 ML SYRINGE SC SCH (21:33)
[2017-05-26] MEDS: HumaLOG 300 UNITS/3 ML VIAL SC PRN ×3 (04:04→23:45)
[2017-05-26 04:29] LABS: Anion Gap 18 mmol/L (10-20); BUN (Urea Nitrogen) 36 mg/dL (9.8-20.1); Calc. Creatinine Clearance 25 mL/min (70-130); Calcium 8.7 mg/dL (7.8-10.44); Carbon Dioxide 20 mmol/L (23-31); Chloride 110 mmol/L (98-107); Estimated GFR-MDRD 36
[2017-05-26 05:03] LABS: Anisocytosis SLIGHT = 6-15 cells (100X) (0-5/hpf); Band 1 % (5-11); Hematocrit 28.1 % (36.0-47.0); Mean Platelet Volume 10.4 fL (7.4-10.4); Microcytosis SLIGHT = 6-15 cells (100X) (0-5/hpf); Neutrophil 94 % (42-75); Red Blood Cell (RBC) Count 3.09 mill/uL (4.20-5.40); White Blood Cell (WBC) Count 11.7 thou/uL (4.8-10.8)
[2017-05-26] MEDS: Sodium Chloride 0.45% 1,000 ML IV SCH ×3 (05:53→20:54)
[2017-05-26] MEDS: Famotidine 20 MG TAB PER TUBE SCH (08:47)
[2017-05-26] MEDS: Cefepime 1 GM, Admixture Fee 1 EACH in Sodium Chloride 0.9% 100 ML IVPB SCH (09:24)
--- NOTE | 2017-05-26 11:26 | RAD ---
SUPINE ABDOMEN: Date: 05/26/17 HISTORY: Assess feeding tube placement. FINDINGS/IMPRESSION: Dobbhoff feeding tube has been placed. Tip overlies the mid abdomen, probably in the region of the g astric antrum. POS: ALEXIS
--- NOTE | 2017-05-26 12:38 | PDOC.PN ---
- Subjective Encounter Start Date: 05/26/17 Encounter Start Time: 10:00 Pt more awake and alert, but still talking incoherently. follows simple commands Nursing reports MACHINE STACKER to re-eval patient for swallowing later this morning No F/C, no N/V/D/C, no CP, no SOB since extubation Discussed with Pulm, Dr Franco No acute events, unable to get ROS due to AMS, unsure of baseline - Objective Resuscitation Status: Resuscitation Status FULL:Full Resuscitation MAR Reviewed: Yes Vital Signs & Weight: Vital Signs (12 hours) Temp Pulse Resp Pulse Ox 05/26/17 12:00 98.1 F 05/26/17 10:21 68 16 05/26/17 07:08 98.1 F 86 19 100 05/26/17 07:00 98.1 F 05/26/17 06:47 71 19 05/26/17 04:00 97.9 F 05/26/17 02:53 100 Weight Admit Weight 113 lb Weight 124 lb 8.979 oz Most Recent Monitor Data Heart Rate from ECG 83 NIBP 169/82 NIBP BP-Mean 112 Respiration from ECG 16 SpO2 100 I&O: 05/25/17 05/26/17 05/27/17 06:59 06:59 06:59 Intake Total 2490.6 2324 60 Output Total 2702 1980 470 Balance -211.4 344 -410 Result Diagrams: 05/26/17 03:53 05/26/17 03:53 Additional Labs: Accuchecks 05/26/17 05/26/17 05/25/17 10:04 04:02 21:36 POC Glucose 149 H 157 H 170 H 05/25/17 15:54 POC Glucose 141 H Radiology Reviewed by me: Yes EKG Reviewed by me: Yes Phys Exam - Physical Examination Constitutional: NAD HEENT: PERRLA, moist MMs, sclera anicteric, oral pharynx no lesions Neck: no nodes, no JVD, supple, full ROM Respiratory: no wheezing, no rhonchi, clear to auscultation bilateral much better air movement, symmetrical chest, fine crackles, improved Cardiovascular: RRR, no rub systolic ejection murmur stable Gastrointestinal: soft, non-tender, no distention, positive bowel sounds Musculoskeletal: no edema, pulses present Neurological: non-focal, normal sensation, moves all 4 limbs Lymphatic: no nodes Deviation from normal: confused, talking incoherently and confabulating Skin: no rash, normal turgor, cap refill <2 seconds Dx/Plan (1) Chronic kidney disease (CKD) Code(s): N18.9 - CHRONIC KIDNEY DISEASE, UNSPECIFIED Status: Chronic Qualifiers: Chronic kidney disease stage: stage 3 (moderate) Qualified Code(s): N18.3 - Chronic kidney disease, stage 3 (moderate) Comment: YAYA on CKD 3 improving. Cr down to 1.68 (2) Septic shock Code(s): A41.9 - SEPSIS, UNSPECIFIED ORGANISM; R65.21 - SEVERE SEPSIS WITH SEPTIC SHOCK Status: Resolved (3) Pneumonia Code(s): J18.9 - PNEUMONIA, UNSPECIFIED ORGANISM Status: Acute Qualifiers: Pneumonia type: due to unspecified organism Laterality: bilateral Lung location: lower lobe of lung Qualified Code(s): J18.9 - Pneumonia, unspecified organism Comment: on Levaquin and Cefepime. atypical appearance. (4) Toxic metabolic encephalopathy Code(s): G92 - TOXIC ENCEPHALOPATHY Status: Acute Comment: due to pneumonia , septic shock, YAYA oin CKD. slowly improving, unsure of basleine (5) DM2 (diabetes mellitus, type 2) Status: Chronic Qualifiers: Diabetes mellitus complication status: with hyperglycemia Diabetes mellitus buttermaker insulin use: unspecified buttermaker insulin use status Qualified Code(s): E11.65 - Type 2 diabetes mellitus with hyperglycemia Comment: Blood sugars less than 200 (6) HTN (hypertension) Code(s): I10 - ESSENTIAL (PRIMARY) HYPERTENSION Status: Chronic Qualifiers: Hypertension type: essential hypertension Qualified Code(s): I10 - Essential (primary) hypertension (7) Positive blood cultures Code(s): R78.81 - BACTEREMIA Status: Acute Comment: if rela, present on admit. intial BCx x 2 sets, only 1/2 positive for strep, a thir set cory over an horu later positive formicrococcus. unsure if any are real. repeats ordered by Dr franco yesterday, will followup on. Covered with Cefepime and levoflox for now. CCM - Plan * .
--- NOTE | 2017-05-26 16:39 | PRG ---
DATE OF SERVICE: 05/26/2017 SUBJECTIVE: Ms. Mcconnell has no complaints, we had to place a Dobhoff tube today. This was confirmed in the stomach by imaging. OBJECTIVE: VITAL SIGNS: She is afebrile, heart rate 73, blood pressure 159/78, respiratory rate 18. She has e qual breath sounds. HEART: Regular rhythm. ABDOMEN: Soft. LABORATORY DATA: White count 11.7, hemoglobin 9.1, platelets 107,000. Sodium 144, potassium 3.7, c hloride 110, bicarbonate 20, BUN 36, creatinine 1.6. IMPRESSION: 1. Status post mechanical ventilation. 2. Swallowing dysfunction, now with Dobbhoff tube. 3. ? aspiration mediated pneumonia. 4. Chronic kidney disease. 5. Alpha strep on one blood culture, probably a pathogen. The micrococcus on the other blood cultu re is probably not. In any event, she appears to be clinically stable. I met with the daughter and answered all of her questions.
[2017-05-26] MEDS: Enoxaparin Sodium 30 MG/0.3 ML SYRINGE SC SCH (20:46)
[2017-05-27 04:40] LABS: Band 2 % (5-11); Hematocrit 30.6 % (36.0-47.0); Mean Platelet Volume 9.3 fL (7.4-10.4); Neutrophil 91 % (42-75); Red Blood Cell (RBC) Count 3.42 mill/uL (4.20-5.40); White Blood Cell (WBC) Count 15.5 thou/uL (4.8-10.8)
[2017-05-27 04:58] LABS: Anion Gap 16 mmol/L (10-20); BUN (Urea Nitrogen) 36 mg/dL (9.8-20.1); Calc. Creatinine Clearance 29 mL/min (70-130); Calcium 8.7 mg/dL (7.8-10.44); Carbon Dioxide 22 mmol/L (23-31); Chloride 108 mmol/L (98-107); Estimated GFR-MDRD 43
[2017-05-27] MEDS: Sodium Chloride 0.45% 1,000 ML IV SCH (05:23)
[2017-05-27] MEDS: HumaLOG 300 UNITS/3 ML VIAL SC PRN ×3 (06:08→17:23)
[2017-05-27] MEDS: Famotidine 20 MG TAB PER TUBE SCH (08:37)
--- NOTE | 2017-05-27 08:58 | PRG ---
DATE OF SERVICE: 05/27/2017 SUBJECTIVE: The patient has done okay over the weekend. She has made no progress with her swallowi ng and now has a Dobhoff tube in place and is receiving enteral tube feeds. She says her breathing is okay. PHYSICAL EXAMINATION: VITAL SIGNS: Her temperature is 97.9, pulse 83, blood pressure 143/75. A 24 hour intake is 3342, o utput 1782. HEENT: Unremarkable. NECK: No JVD. CHEST: Clear without wheezing. CARDIAC: S1 and S2 regular. ABDOMEN: Soft. EXTREMITIES: No edema. LABORATORY DATA: White blood cell count 15.5, hematocrit 30.6, platelet count 126. Sodium 142, pot assium 3.5, chloride 108, CO2 22, BUN 36, creatinine 1.4, glucose 321. ASSESSMENT: 1. Status post respiratory failure requiring mechanical ventilation. 2. Swallowing dysfunction. 3. Failure to thrive. 4. Chronic renal insufficiency, which is improved. 5. Hyperglycemia. PLAN: 1. Stop steroids. 2. Transfer to the floor. 3. Continue tube feeds until speech therapy can decide whether or not she can tolerate swallowing. She may end up needing a PEG tube if she does not pass her swallowing study.
[2017-05-27] MEDS: Cefepime 1 GM, Admixture Fee 1 EACH in Sterile Water 10 ML SLOW IVP SCH (09:29)
--- NOTE | 2017-05-27 11:04 | PDOC.PN ---
- Subjective Encounter Start Date: 05/27/17 Encounter Start Time: 09:10 -: old records requested/rev Pt more awake and alert, talking and making some sense. Wants fried chicken adn mashed potatoes. no F/C, no N/V/D/C. Daughter at bedside, normally pt sundowns pretty significantly, but is able to perform most ADLs and gets up to bathroom. No acute events overnight, cleared by Dr Sutherland with Pulmonology to go the floor, bed 4432 - Objective Resuscitation Status: Resuscitation Status FULL:Full Resuscitation MAR Reviewed: Yes Vital Signs & Weight: Vital Signs (12 hours) Temp Pulse Resp Pulse Ox 05/27/17 10:13 65 16 96 05/27/17 08:02 99 05/27/17 08:01 74 17 99 05/27/17 07:36 97.9 F 74 16 100 05/27/17 07:00 97.9 F 05/27/17 04:00 97.6 F 05/27/17 02:36 93 L 05/27/17 00:00 97.6 F Weight Admit Weight 113 lb Weight 127 lb 3.307 oz Most Recent Monitor Data Heart Rate from ECG 73 NIBP 120/61 NIBP BP-Mean 78 Respiration from ECG 16 SpO2 100 I&O: 05/26/17 05/27/17 05/28/17 06:59 06:59 06:59 Intake Total 2324 3342 265 Output Total 1980 1782 95 Balance 344 1560 170 Result Diagrams: 05/27/17 04:00 05/27/17 04:00 Additional Labs: Accuchecks 05/27/17 05/26/17 05/26/17 06:08 23:41 15:57 POC Glucose 305 H 246 H 180 H Radiology Reviewed by me: Yes EKG Reviewed by me: Yes Phys Exam - Physical Examination HEENT: PERRLA, moist MMs, sclera anicteric, oral pharynx no lesions Neck: no nodes, no JVD, supple, full ROM Respiratory: no wheezing, no rales, no rhonchi, clear to auscultation bilateral Cardiovascular: RRR, no significant murmur, no rub Gastrointestinal: soft, non-tender, no distention, positive bowel sounds Musculoskeletal: pulses present, edema present Neurological: non-focal, normal sensation, moves all 4 limbs Lymphatic: no nodes Deviation from normal: awake and alert, knows shes in [place], but thinks shes at home Skin: no rash, normal turgor, cap refill <2 seconds Dx/Plan (1) Chronic kidney disease (CKD) Code(s): N18.9 - CHRONIC KIDNEY DISEASE, UNSPECIFIED Status: Chronic Qualifiers: Chronic kidney disease stage: stage 3 (moderate) Qualified Code(s): N18.3 - Chronic kidney disease, stage 3 (moderate) Comment: YAYA on CKD 3 improving. Cr down to 1.44 (2) Pneumonia Code(s): J18.9 - PNEUMONIA, UNSPECIFIED ORGANISM Status: Acute Qualifiers: Pneumonia type: due to unspecified organism Laterality: bilateral Lung location: lower lobe of lung Qualified Code(s): J18.9 - Pneumonia, unspecified organism Comment: on Levaquin and Cefepime. atypical appearance. Present on admission, clinically much improved (3) Toxic metabolic encephalopathy Code(s): G92 - TOXIC ENCEPHALOPATHY Status: Acute Comment: due to pneumonia , septic shock, YAYA oin CKD. slowly improving, basleine conformed with daughter (4) DM2 (diabetes mellitus, type 2) Status: Chronic Qualifiers: Diabetes mellitus complication status: without complication Diabetes mellitus detention insulin use: unspecified equipment operator intermodal yard insulin use status Qualified Code(s): E11.9 - Type 2 diabetes mellitus without complications Comment: Blood sugars less than 200 (5) HTN (hypertension) Code(s): I10 - ESSENTIAL (PRIMARY) HYPERTENSION Status: Chronic Qualifiers: Hypertension type: essential hypertension Qualified Code(s): I10 - Essential (primary) hypertension (6) Positive blood cultures Code(s): R78.81 - BACTEREMIA Status: Acute Comment: if real, present on admit. intial BCx x 2 sets, only 1/2 positive for strep, a thir set draawn over an horu later positive formicrococcus. unsure if any are real. repeats ordered by Dr franco yesterday, will followup on. Covered with Cefepime and levoflox for now. [facility] (7) Septic shock Code(s): A41.9 - SEPSIS, UNSPECIFIED ORGANISM; R65.21 - SEVERE SEPSIS WITH SEPTIC SHOCK Status: Resolved - Plan cont current plan of care, plan discussed w/ family, continue antibiotics, PT/OT , speech therapy, respiratory therapy, DVT proph w/lovenox * .
[2017-05-27] MEDS ORDERED: Insulin Detemir 100 UNITS/ML 15 UNITS in Pre-Filled Syringe 1 EACH SC SCH (13:45)
[2017-05-27 14:20] VITALS: BMI 20.5
[2017-05-27] MEDS: Enoxaparin Sodium 30 MG/0.3 ML SYRINGE SC SCH (20:58)
--- NOTE | 2017-05-28 09:07 | PRG ---
DATE OF SERVICE: 05/28/2017 The patient is doing reasonably well, still not swallowing and is being fed with an NG tube. PHYSICAL EXAMINATION: VITAL SIGNS: Temperature is 97.0, pulse 72, respiration rate 16, O2 sat 94%, blood pressure 140/74. HEENT: Unremarkable. NECK: No JVD. CHEST: Clear. CARDIAC: S1 and S2 regular. ABDOMEN: Soft. EXTREMITIES: No edema. ASSESSMENT: 1. Pneumonia, status post respiratory failure requiring mechanical ventilation. 2. Swallowing dysfunction. 3. Failure to thrive. 4. Chronic renal insufficiency. PLAN: I would think that her antibiotics could probably be consolidated. Eventually a decision eddie l need to be made about feeding - PEG tube versus another trial of swallowing, not much further to a dd on this case.
[2017-05-28] MEDS: Insulin Detemir 100 UNITS/ML 15 UNITS in Pre-Filled Syringe 1 EACH SC SCH (09:30)
[2017-05-28] MEDS: Famotidine 20 MG TAB PER TUBE SCH (09:31)
[2017-05-28] MEDS: Cefepime 1 GM, Admixture Fee 1 EACH in Sterile Water 10 ML SLOW IVP SCH (10:34)
--- NOTE | 2017-05-28 14:05 | PDOC.PN ---
- Subjective Encounter Start Date: 05/28/17 Encounter Start Time: 11:15 -: old records requested/rev Patient seen and examined. No new complaints. No overnight events - Objective Resuscitation Status: Resuscitation Status FULL:Full Resuscitation MAR Reviewed: Yes Vital Signs & Weight: Vital Signs (12 hours) Temp Pulse Resp BP Pulse Ox 05/28/17 13:42 73 16 95 05/28/17 09:53 72 14 95 05/28/17 07:37 97 F L 72 16 148/74 H 94 L 05/28/17 06:06 72 18 95 05/28/17 04:00 97.3 F L 72 18 151/71 H 95 05/28/17 02:40 96 05/28/17 02:13 78 16 94 L Weight Admit Weight 113 lb Weight 127 lb 3.307 oz Most Recent Monitor Data Heart Rate from ECG 73 NIBP 120/61 NIBP BP-Mean 78 Respiration from ECG 16 SpO2 100 I&O: 05/27/17 05/28/17 05/29/17 06:59 06:59 06:59 Intake Total 3342 560 1375 Output Total 1782 1370 375 Balance 1560 -810 1000 Result Diagrams: 05/27/17 04:00 05/27/17 04:00 Additional Labs: Accuchecks 05/28/17 05/28/17 05/28/17 09:55 04:12 00:42 POC Glucose 111 H 110 124 H 05/27/17 16:38 POC Glucose 284 H Phys Exam - Physical Examination Constitutional: NAD HEENT: PERRLA, moist MMs, sclera anicteric Neck: no JVD, supple Respiratory: no wheezing, no rales, no rhonchi Cardiovascular: RRR, no significant murmur, no rub Gastrointestinal: soft, non-tender, no distention, positive bowel sounds Musculoskeletal: no edema, pulses present Neurological: non-focal, normal sensation Lymphatic: no nodes Psychiatric: normal affect, A&O x 3 Skin: no rash, normal turgor Dx/Plan (1) Acute worsening of stage 3 chronic kidney disease Code(s): N18.3 - CHRONIC KIDNEY DISEASE, STAGE 3 (MODERATE) Status: Acute (2) Community acquired bacterial pneumonia Code(s): J15.9 - UNSPECIFIED BACTERIAL PNEUMONIA Status: Acute (3) Dysphagia, oropharyngeal Code(s): R13.12 - DYSPHAGIA, OROPHARYNGEAL PHASE Status: Acute (4) Thrombocytopenia Code(s): D69.6 - THROMBOCYTOPENIA, UNSPECIFIED Status: Acute (5) Anemia, normocytic normochromic Code(s): D64.9 - ANEMIA, UNSPECIFIED Status: Chronic (6) DM2 (diabetes mellitus, type 2) Status: Chronic Qualifiers: Diabetes mellitus complication status: without complication Diabetes mellitus meterman insulin use: unspecified meterman insulin use status Qualified Code(s): E11.9 - Type 2 diabetes mellitus without complications Comment: (7) HLD (hyperlipidemia) Code(s): E78.5 - HYPERLIPIDEMIA, UNSPECIFIED Status: Chronic (8) HTN (hypertension) Code(s): I10 - ESSENTIAL (PRIMARY) HYPERTENSION Status: Chronic Qualifiers: Hypertension type: essential hypertension Qualified Code(s): I10 - Essential (primary) hypertension (9) Acute respiratory failure Code(s): J96.00 - ACUTE RESPIRATORY FAILURE, UNSP W HYPOXIA OR HYPERCAPNIA Status: Resolved Comment: (10) Septic shock Code(s): A41.9 - SEPSIS, UNSPECIFIED ORGANISM; R65.21 - SEVERE SEPSIS WITH SEPTIC SHOCK Status: Resolved - Plan cont current plan of care, continue antibiotics, outreach and education social worker * pt has failed swallow evaluation, she is on dubhuff tube feeding * I tried to reach family member to discuss about PEG, but no response * medication reviewed as below * symptomatic treatment * continue levaquin * she may need placement * supportive care. Review of Systems - Review of Systems Other: unable to review as pt is lethargic, not reliable - Medications/Allergies Allergies/Adverse Reactions: Allergies Allergy/AdvReac Type Severity Reaction Status Date / Time No Known Drug Allergies Allergy Verified 05/20/17 21:30 Medications: Current Medications Albuterol/Ipratropium (Duoneb) 3 ml NEB [id number] [facility] Last Admin: 05/28/17 13:42 Dose: 3 ml Dextrose/Water (Dextrose 50%) 25 gm IVP PRN PRN PRN Reason: HYPOGLYCEMIA PROTOCOL Enoxaparin Sodium (Lovenox) 30 mg SC 2100 [facility] Last Admin: 05/27/17 20:58 Dose: 30 mg Famotidine (Pepcid) 20 mg PER TUBE DAILY [facility] Last Admin: 05/28/17 09:31 Dose: 20 mg Glucagon (Glucagon) 1 mg IM PRN PRN PRN Reason: HYPOGLYCEMIA PROTOCOL Dextrose/Water (D5w) 1,000 mls @ 0 mls/hr IV INF PRN; As Directed PRN Reason: HYPOGLYCEMIA PROTOCOL Levofloxacin 500 mg/ Device 100 mls @ 100 mls/hr IVPB Q2D@2200 [facility] Last Admin: 05/27/17 20:58 Dose: 100 mls Cefepime HCl 1 gm/Miscellaneous Medication 1 each/ Sterile Water 10 mls @ 120 mls/hr SLOW IVP 0900 [facility] Last Admin: 05/28/17 10:34 Dose: 10 mls Insulin Detemir 15 units/ (Miscellaneous Medication) 0.15 mls @ 0 mls/hr SC QAM [facility] Last Admin: 05/28/17 09:30 Dose: 0.15 mls Insulin Human Lispro (Humalog) 0 units SC .MODERATE SLIDING SC PRN; Protocol PRN Reason: MODERATE SLIDING SCALE Last Admin: 05/27/17 17:23 Dose: 6 unit
[2017-05-28] MEDS: Enoxaparin Sodium 30 MG/0.3 ML SYRINGE SC SCH (21:50)
--- NOTE | 2017-05-29 05:50 | PDOC.EVN ---
Event Note - Event Note Event Note: RN called - Pt was found to have hypoxia/gurgling noise with lethargy that improved on O2 NC @ 3 lit. Mentation improved after O2 supp. Will get CXR. Cont pulse Ox
[2017-05-29] MEDS ORDERED: Furosemide 40 MG/4 ML VIAL SLOW IVP SCH (07:15)
--- NOTE | 2017-05-29 08:27 | RAD ---
ONE VIEW CHEST: HISTORY: Hypoxia and shortness of breath. COMPARISON: 05/24/2017 FINDINGS: Incompletely evaluated Dobhoff feeding tube. Right-sided central venous catheter with distal tip pr ojecting over the right atrium is noted. Lungs are hyperinflated. Persistent interstitial and alve olar opacities, as well as bilateral pleural effusions. Cardiomegaly is noted. There is atheroscle rosis of the aorta. IMPRESSION: 1. Persistent interstitial and alveolar opacities. 2. Atherosclerosis. POS: OFF
[2017-05-29] MEDS: Insulin Detemir 100 UNITS/ML 15 UNITS in Pre-Filled Syringe 1 EACH SC SCH (08:55)
[2017-05-29] MEDS: Famotidine 20 MG TAB PER TUBE SCH (08:56)
--- NOTE | 2017-05-29 08:56 | PRG ---
DATE OF SERVICE: 05/29/2017 The patient is about the same. Had no complaints. PHYSICAL EXAMINATION: VITAL SIGNS: Temperature 97.3, pulse 94, respirations 18, O2 sat 91%, blood pressure 156/80. HEENT: Unremarkable. NECK: No JVD. LUNGS: Fairly clear. CARDIAC: S1 and S2 regular. ABDOMEN: Soft. EXTREMITIES: No edema. Chest x-ray demonstrates chronic interstitial changes bilaterally. ASSESSMENT: 1. Status post acute respiratory failure. 2. Chronic aspiration. 3. Failure to thrive. RECOMMENDATIONS: 1. Continue antibiotics. 2. Suction as needed. 3. Likely will need a feeding tube if her swallowing does not improve. 4. Her long-term prognosis is quite poor. Again, I would focus on DNR.
[2017-05-29] MEDS: Cefepime 1 GM, Admixture Fee 1 EACH in Sterile Water 10 ML SLOW IVP SCH (09:02)
[2017-05-29] MEDS: HumaLOG 300 UNITS/3 ML VIAL SC PRN (11:40)
--- NOTE | 2017-05-29 13:10 | PDOC.PN ---
- Subjective Encounter Start Date: 05/29/17 Encounter Start Time: 09:50 last night pt was more short of breath, chest xray done, no fever - Objective Resuscitation Status: Resuscitation Status FULL:Full Resuscitation MAR Reviewed: Yes Vital Signs & Weight: Vital Signs (12 hours) Temp Pulse Resp BP Pulse Ox 05/29/17 11:27 97.2 F L 92 16 159/83 H 93 L 05/29/17 10:11 88 16 05/29/17 08:27 97.3 F L 94 18 156/80 H 91 L 05/29/17 08:00 97.3 F L 94 18 91 L 05/29/17 06:47 89 16 05/29/17 04:38 97 05/29/17 04:00 97.7 F 91 16 165/84 H 92 L Weight Admit Weight 113 lb Weight 127 lb 3.307 oz Most Recent Monitor Data Heart Rate from ECG 73 NIBP 120/61 NIBP BP-Mean 78 Respiration from ECG 16 SpO2 100 I&O: 05/28/17 05/29/17 05/30/17 06:59 06:59 06:59 Intake Total 560 1435 540 Output Total 1370 1675 900 Balance -810 -240 -360 Result Diagrams: 05/27/17 04:00 05/27/17 04:00 Additional Labs: Accuchecks 05/29/17 05/29/17 05/28/17 11:13 04:53 19:58 POC Glucose 163 H 114 H 111 H 05/28/17 16:00 POC Glucose 121 H Radiology Reviewed by me: Yes (chest xray) Phys Exam - Physical Examination Constitutional: NAD HEENT: PERRLA, moist MMs, sclera anicteric dubhuff tube+ Neck: no JVD, supple bilateral coarse breath sound with reduced air entry Cardiovascular: RRR, no significant murmur, no rub Gastrointestinal: soft, non-tender, no distention, positive bowel sounds Musculoskeletal: no edema, pulses present Neurological: non-focal Lymphatic: no nodes Psychiatric: normal affect Skin: no rash, normal turgor Dx/Plan (1) Acute worsening of stage 3 chronic kidney disease Code(s): N18.3 - CHRONIC KIDNEY DISEASE, STAGE 3 (MODERATE) Status: Acute (2) Community acquired bacterial pneumonia Code(s): J15.9 - UNSPECIFIED BACTERIAL PNEUMONIA Status: Acute (3) Dysphagia, oropharyngeal Code(s): R13.12 - DYSPHAGIA, OROPHARYNGEAL PHASE Status: Acute (4) Thrombocytopenia Code(s): D69.6 - THROMBOCYTOPENIA, UNSPECIFIED Status: Acute (5) Anemia, normocytic normochromic Code(s): D64.9 - ANEMIA, UNSPECIFIED Status: Chronic (6) DM2 (diabetes mellitus, type 2) Status: Chronic Qualifiers: Diabetes mellitus complication status: without complication Diabetes mellitus prison insulin use: unspecified prison insulin use status Qualified Code(s): E11.9 - Type 2 diabetes mellitus without complications Comment: (7) HLD (hyperlipidemia) Code(s): E78.5 - HYPERLIPIDEMIA, UNSPECIFIED Status: Chronic (8) HTN (hypertension) Code(s): I10 - ESSENTIAL (PRIMARY) HYPERTENSION Status: Chronic Qualifiers: Hypertension type: essential hypertension Qualified Code(s): I10 - Essential (primary) hypertension (9) Acute respiratory failure Code(s): J96.00 - ACUTE RESPIRATORY FAILURE, UNSP W HYPOXIA OR HYPERCAPNIA Status: Resolved Comment: (10) Septic shock Code(s): A41.9 - SEPSIS, UNSPECIFIED ORGANISM; R65.21 - SEVERE SEPSIS WITH SEPTIC SHOCK Status: Resolved - Plan cont current plan of care, plan discussed w/ family, continue antibiotics, PT/OT , social worker assistant, respiratory therapy * will give lasix for possible volume overload * discussed with daughter about PEG, goal of care and code status in details and she will confirm decision after discussing with other family member * prognosis is poor * still her aspiration pneumonia has not resolved. * continue cefepime and levaquin * continue tube feeding Review of Systems - Review of Systems Other: not reliable from patient - Medications/Allergies Allergies/Adverse Reactions: Allergies Allergy/AdvReac Type Severity Reaction Status Date / Time No Known Drug Allergies Allergy Verified 05/20/17 21:30 Medications: Current Medications Albuterol/Ipratropium (Duoneb) 3 ml NEB [id number] [facility] Last Admin: 05/29/17 10:11 Dose: 3 ml Dextrose/Water (Dextrose 50%) 25 gm IVP PRN PRN PRN Reason: HYPOGLYCEMIA PROTOCOL Enoxaparin Sodium (Lovenox) 30 mg SC 2100 [facility] Last Admin: 05/28/17 21:50 Dose: 30 mg Famotidine (Pepcid) 20 mg PER TUBE DAILY [facility] Last Admin: 05/29/17 08:56 Dose: 20 mg Furosemide (Lasix) 20 mg SLOW IVP 0600,1400 [facility] Glucagon (Glucagon) 1 mg IM PRN PRN PRN Reason: HYPOGLYCEMIA PROTOCOL Dextrose/Water (D5w) 1,000 mls @ 0 mls/hr IV INF PRN; As Directed PRN Reason: HYPOGLYCEMIA PROTOCOL Cefepime HCl 1 gm/Miscellaneous Medication 1 each/ Sterile Water 10 mls @ 120 mls/hr SLOW IVP 0900 [facility] Last Admin: 05/29/17 09:02 Dose: 10 mls Insulin Detemir 15 units/ (Miscellaneous Medication) 0.15 mls @ 0 mls/hr SC QAM [facility] Last Admin: 05/29/17 08:55 Dose: 0.15 mls Levofloxacin 500 mg/ Device 100 mls @ 100 mls/hr IVPB 1200 [facility] Insulin Human Lispro (Humalog) 0 units SC .MODERATE SLIDING SC PRN; Protocol PRN Reason: MODERATE SLIDING SCALE Last Admin: 05/29/17 11:40 Dose: 2 unit Sodium Chloride (Flush - Normal Saline) 10 ml IVF Q12HR [facility] Last Admin: 05/29/17 09:03 Dose: 10 ml Sodium Chloride (Flush - Normal Saline) 10 ml IVF PRN PRN PRN Reason: Saline Flush
[2017-05-29] MEDS: Furosemide 20 MG/2 ML VIAL SLOW IVP SCH (14:47)
[2017-05-29] MEDS: Enoxaparin Sodium 30 MG/0.3 ML SYRINGE SC SCH (20:14)
[2017-05-30] MEDS: Furosemide 20 MG/2 ML VIAL SLOW IVP SCH ×2 (05:23→13:04)
[2017-05-30 05:29] LABS: Anion Gap 7 mmol/L (10-20); BUN (Urea Nitrogen) 28 mg/dL (9.8-20.1); Calc. Creatinine Clearance 40 mL/min (70-130); Calcium 8.8 mg/dL (7.8-10.44); Carbon Dioxide 33 mmol/L (23-31); Chloride 107 mmol/L (98-107); Estimated GFR-MDRD 61
[2017-05-30] MEDS: HumaLOG 300 UNITS/3 ML VIAL SC PRN ×4 (05:34→20:09)
[2017-05-30 06:09] LABS: #Eosinphils 0.1 thou/uL (0.0-0.7); #Lymphocytes 0.8 thou/uL (1.20-3.40); #Monocytes 0.4 thou/uL (0.11-0.59); #Neutrophils 7.7 thou/uL (1.40-6.50); %Basophils 0.3 % (0.0-1.0); %Eosinophils 0.6 % (0.0-10.0); %Lymphocytes 8.7 % (21.0-51.0); %Monocytes 4.2 % (0.0-10.0); Anisocytosis SLIGHT = 6-15 cells (100X) (0-5/hpf); Hematocrit 32.4 % (36.0-47.0); Target Cells SLIGHT = 2-5 cells (100X) (0-1/hpf); White Blood Cell (WBC) Count 8.9 thou/uL (4.8-10.8)
--- NOTE | 2017-05-30 08:42 | PRG ---
DATE OF SERVICE: 05/30/2017 SUBJECTIVE: She is much more deliberate in her speech today. She says that she wants to eat. PHYSICAL EXAMINATION: VITAL SIGNS: Temperature is 97.3, pulse 89, respirations 20, O2 sat 96%, blood pressure 147/82. HEENT: Unremarkable except for a Dobbhoff tube in place. NECK: No JVD. CHEST: Clear without wheezing. CARDIAC: S1 and S2 regular. ABDOMEN: Soft. EXTREMITIES: No edema. LABORATORY DATA: White blood cell count 8.9, hematocrit 32.4, platelet count 70. Sodium 143, potas sium 3.5, chloride 107, CO2 33, BUN 20, creatinine 1.1, and glucose 207. ASSESSMENT: 1. Aspiration pneumonia. 2. Status post mechanical ventilation. 3. New development of thrombocytopenia. PLAN: 1. I will go ahead and hold her Lovenox at this time. 2. Continue antibiotics. 3. She may need a PEG tube if her volumes are not improved.
[2017-05-30] MEDS: Cefepime 1 GM, Admixture Fee 1 EACH in Sterile Water 10 ML SLOW IVP SCH (09:57)
[2017-05-30] MEDS: Famotidine 20 MG TAB PER TUBE SCH (09:57)
[2017-05-30] MEDS: Insulin Detemir 100 UNITS/ML 15 UNITS in Pre-Filled Syringe 1 EACH SC SCH (09:58)
--- NOTE | 2017-05-30 13:04 | PDOC.PN ---
- Subjective Encounter Start Date: 05/30/17 Encounter Start Time: 10:45 Patient seen and examined. No new complaints. No overnight events - Objective Resuscitation Status: Resuscitation Status DNR:Do Not Resuscitate MAR Reviewed: Yes Vital Signs & Weight: Vital Signs (12 hours) Temp Pulse Resp BP Pulse Ox 05/30/17 10:19 80 16 05/30/17 08:00 97.3 F L 89 22 H 147/82 H 96 05/30/17 02:36 100 Weight Admit Weight 113 lb Weight 127 lb 3.307 oz Most Recent Monitor Data Heart Rate from ECG 73 NIBP 120/61 NIBP BP-Mean 78 Respiration from ECG 16 SpO2 100 I&O: 05/29/17 05/30/17 05/31/17 06:59 06:59 06:59 Intake Total 1435 3218 Output Total 1675 1975 Balance -240 1243 Result Diagrams: 05/30/17 04:54 05/30/17 04:54 Additional Labs: Accuchecks 05/30/17 05/30/17 05/29/17 11:34 04:41 21:24 POC Glucose 277 H 191 H 131 H 05/29/17 05/29/17 20:03 16:14 POC Glucose 68 L 77 Phys Exam - Physical Examination Constitutional: NAD HEENT: PERRLA, moist MMs, sclera anicteric dubhuff tube+ Neck: no JVD, supple Respiratory: no wheezing, no rales, no rhonchi Cardiovascular: RRR, no significant murmur, no rub Gastrointestinal: soft, non-tender, no distention, positive bowel sounds Musculoskeletal: no edema, pulses present Neurological: non-focal, normal sensation Lymphatic: no nodes Psychiatric: normal affect Skin: no rash, normal turgor Dx/Plan (1) Acute worsening of stage 3 chronic kidney disease Code(s): N18.3 - CHRONIC KIDNEY DISEASE, STAGE 3 (MODERATE) Status: Acute (2) Community acquired bacterial pneumonia Code(s): J15.9 - UNSPECIFIED BACTERIAL PNEUMONIA Status: Acute (3) Dysphagia, oropharyngeal Code(s): R13.12 - DYSPHAGIA, OROPHARYNGEAL PHASE Status: Acute (4) Thrombocytopenia Code(s): D69.6 - THROMBOCYTOPENIA, UNSPECIFIED Status: Acute (5) Anemia, normocytic normochromic Code(s): D64.9 - ANEMIA, UNSPECIFIED Status: Chronic (6) DM2 (diabetes mellitus, type 2) Status: Chronic Qualifiers: Diabetes mellitus complication status: without complication Diabetes mellitus terminal gauger supervisor insulin use: unspecified longterm insulin use status Qualified Code(s): E11.9 - Type 2 diabetes mellitus without complications Comment: (7) HLD (hyperlipidemia) Code(s): E78.5 - HYPERLIPIDEMIA, UNSPECIFIED Status: Chronic (8) HTN (hypertension) Code(s): I10 - ESSENTIAL (PRIMARY) HYPERTENSION Status: Chronic Qualifiers: Hypertension type: essential hypertension Qualified Code(s): I10 - Essential (primary) hypertension (9) Acute respiratory failure Code(s): J96.00 - ACUTE RESPIRATORY FAILURE, UNSP W HYPOXIA OR HYPERCAPNIA Status: Resolved Comment: (10) Septic shock Code(s): A41.9 - SEPSIS, UNSPECIFIED ORGANISM; R65.21 - SEVERE SEPSIS WITH SEPTIC SHOCK Status: Resolved - Plan cont current plan of care, plan discussed w/ family, continue antibiotics, PT/OT , adoption social worker, respiratory therapy * code status changed to DNR after discussion today * daughter will decide about options of PEG, still she has not finalized * medication reviewed as below * symptomatic treatment * continue tube feeding via dubhuff. Review of Systems - Review of Systems Other: not reliable due to dementia - Medications/Allergies Allergies/Adverse Reactions: Allergies Allergy/AdvReac Type Severity Reaction Status Date / Time No Known Drug Allergies Allergy Verified 05/20/17 21:30 Medications: Current Medications Albuterol/Ipratropium (Duoneb) 3 ml NEB [id number] [facility] Last Admin: 05/30/17 10:19 Dose: 3 ml Dextrose/Water (Dextrose 50%) 25 gm IVP PRN PRN PRN Reason: HYPOGLYCEMIA PROTOCOL Famotidine (Pepcid) 20 mg PER TUBE DAILY [facility] Last Admin: 05/30/17 09:57 Dose: 20 mg Furosemide (Lasix) 20 mg SLOW IVP 0600,1400 [facility] Last Admin: 05/30/17 13:04 Dose: 20 mg Glucagon (Glucagon) 1 mg IM PRN PRN PRN Reason: HYPOGLYCEMIA PROTOCOL Dextrose/Water (D5w) 1,000 mls @ 0 mls/hr IV INF PRN; As Directed PRN Reason: HYPOGLYCEMIA PROTOCOL Cefepime HCl 1 gm/Miscellaneous Medication 1 each/ Sterile Water 10 mls @ 120 mls/hr SLOW IVP 0900 [facility] Last Admin: 05/30/17 09:57 Dose: 10 mls Insulin Detemir 15 units/ (Miscellaneous Medication) 0.15 mls @ 0 mls/hr SC QAM [facility] Last Admin: 05/30/17 09:58 Dose: 0.15 mls Levofloxacin 500 mg/ Device 100 mls @ 100 mls/hr IVPB 1200 [facility] Last Admin: 05/30/17 11:06 Dose: 100 mls Insulin Human Lispro (Humalog) 0 units SC .MODERATE SLIDING SC PRN; Protocol PRN Reason: MODERATE SLIDING SCALE Last Admin: 05/30/17 11:49 Dose: 6 unit Sodium Chloride (Flush - Normal Saline) 10 ml IVF Q12HR [facility] Last Admin: 05/30/17 10:18 Dose: 10 ml Sodium Chloride (Flush - Normal Saline) 10 ml IVF PRN PRN PRN Reason: Saline Flush
[2017-05-31] MEDS: Furosemide 20 MG/2 ML VIAL SLOW IVP SCH ×2 (05:34→14:39)
--- NOTE | 2017-05-31 08:01 | RAD ---
ABDOMEN 1 VIEW: Date; 05/31/17 HISTORY: 77-year-old female to check Dobbhoff tube placement location. TECHNIQUE: Portable semiupright view of the abdomen obtained following placement of a Dobbhoff tube. Exam inclu wilmer most of the chest. COMPARISON: 05/26/17. FINDINGS: Significant bone demineralization. Moderate left-sided pleural effusion and small right-sided pleura l effusion. Dobbhoff tube is in place with the tip in the expected location of the antrum of the sto mach, in a similar location to the 05/26/17 study. No evidence for large or small bowel obstruction. There is gas and fecal material in the colon. IMPRESSION: 1. Dobbhoff tube in satisfactory location. 2. Bilateral pleural effusions, greater on the left side. 3. Severe bone demineralization. 4. Minimal stable patchy pulmonary parenchymal changes. POS: ALEXIS
--- NOTE | 2017-05-31 08:37 | PRG ---
DATE OF SERVICE: 05/31/2017 SUBJECTIVE: The patient is complaining of excessive secretions in her mouth. PHYSICAL EXAMINATION: VITAL SIGNS: Her temperature is 97.4, pulse 76, respirations 16, O2 sat 96% on 3 liters, blood pres sure 149/78. HEENT: Remarkable for copious sputum in the mouth. NECK: No JVD. LUNGS: Coarse breath sounds. CARDIAC: S1 and S2 regular. ABDOMEN: Soft. EXTREMITIES: No edema. LABORATORY DATA: No new labs were done today. ASSESSMENT: 1. Patient with aspiration pneumonia. She has severe difficulty controlling her oral secretions 2. Advanced age. 3. Thrombocytopenia. PLAN: 1. Discontinue her central line and insert peripheral IV. 2. Add scopolamine patch. 3. Consider discontinuing her IV antibiotics. 4. Consider PEG tube. 5. Follow up CBC tomorrow to follow thrombocytopenia.
[2017-05-31] MEDS: Scopolamine 1.5 mg/72 hour Patch TD SCH (09:04)
[2017-05-31] MEDS: Insulin Detemir 100 UNITS/ML 15 UNITS in Pre-Filled Syringe 1 EACH SC SCH (09:06)
[2017-05-31] MEDS: Cefepime 1 GM, Admixture Fee 1 EACH in Sterile Water 10 ML SLOW IVP SCH (09:06)
[2017-05-31] MEDS: Famotidine 20 MG TAB PER TUBE SCH (09:06)
--- NOTE | 2017-05-31 12:22 | PDOC.PN ---
- Subjective Encounter Start Date: 05/31/17 Encounter Start Time: 07:30 Patient seen and examined. No new complaints. No overnight events - Objective Resuscitation Status: Resuscitation Status DNR:Do Not Resuscitate MAR Reviewed: Yes Vital Signs & Weight: Vital Signs (12 hours) Temp Pulse Resp BP Pulse Ox 05/31/17 11:11 80 24 H 05/31/17 08:00 97.4 F L 76 16 96 05/31/17 07:47 97.4 F L 76 16 149/78 H 96 05/31/17 07:25 94 L 05/31/17 07:22 74 20 94 L 05/31/17 02:35 91 16 100 Weight Admit Weight 113 lb Weight 127 lb 3.307 oz Most Recent Monitor Data Heart Rate from ECG 73 NIBP 120/61 NIBP BP-Mean 78 Respiration from ECG 16 SpO2 100 I&O: 05/30/17 05/31/17 06/01/17 06:59 06:59 06:59 Intake Total 3218 1031 Output Total 1975 2900 Balance 1243 -1869 Result Diagrams: 05/30/17 04:54 05/30/17 04:54 Additional Labs: Accuchecks 05/31/17 05/31/17 05/30/17 11:10 05:05 19:45 POC Glucose 138 H 93 170 H 05/30/17 16:24 POC Glucose 249 H Phys Exam - Physical Examination Constitutional: NAD HEENT: PERRLA, moist MMs, sclera anicteric dubhuff tube+ Neck: no JVD, supple Respiratory: no wheezing, no rales, no rhonchi Cardiovascular: RRR, no significant murmur, no rub Gastrointestinal: soft, non-tender, no distention, positive bowel sounds lyn+ Musculoskeletal: no edema, pulses present Neurological: non-focal Lymphatic: no nodes Psychiatric: normal affect Skin: no rash, normal turgor Dx/Plan (1) Acute worsening of stage 3 chronic kidney disease Code(s): N18.3 - CHRONIC KIDNEY DISEASE, STAGE 3 (MODERATE) Status: Acute (2) Community acquired bacterial pneumonia Code(s): J15.9 - UNSPECIFIED BACTERIAL PNEUMONIA Status: Acute (3) Dysphagia, oropharyngeal Code(s): R13.12 - DYSPHAGIA, OROPHARYNGEAL PHASE Status: Acute (4) Thrombocytopenia Code(s): D69.6 - THROMBOCYTOPENIA, UNSPECIFIED Status: Acute (5) Anemia, normocytic normochromic Code(s): D64.9 - ANEMIA, UNSPECIFIED Status: Chronic (6) DM2 (diabetes mellitus, type 2) Status: Chronic Qualifiers: Diabetes mellitus complication status: without complication Diabetes mellitus shelter insulin use: unspecified drawer waxer insulin use status Qualified Code(s): E11.9 - Type 2 diabetes mellitus without complications Comment: (7) HLD (hyperlipidemia) Code(s): E78.5 - HYPERLIPIDEMIA, UNSPECIFIED Status: Chronic (8) HTN (hypertension) Code(s): I10 - ESSENTIAL (PRIMARY) HYPERTENSION Status: Chronic Qualifiers: Hypertension type: essential hypertension Qualified Code(s): I10 - Essential (primary) hypertension (9) Acute respiratory failure Code(s): J96.00 - ACUTE RESPIRATORY FAILURE, UNSP W HYPOXIA OR HYPERCAPNIA Status: Resolved Comment: (10) Septic shock Code(s): A41.9 - SEPSIS, UNSPECIFIED ORGANISM; R65.21 - SEVERE SEPSIS WITH SEPTIC SHOCK Status: Resolved - Plan cont current plan of care, continue antibiotics, PT/OT, social welfare research worker, speech therapy * pt is not safe for po intake, needs peg tube * daughter has not decided about that yet * once she ok with peg, will consult gi for peg * daughter does not want snu but rather prefer home despite pt is physically weak * medication reviewed as below * symptomatic treatment. Review of Systems - Review of Systems Other: not reliable due to confusion - Medications/Allergies Allergies/Adverse Reactions: Allergies Allergy/AdvReac Type Severity Reaction Status Date / Time No Known Drug Allergies Allergy Verified 05/20/17 21:30 Medications: Current Medications Albuterol/Ipratropium (Duoneb) 3 ml NEB [id number] [facility] Last Admin: 05/31/17 11:11 Dose: 3 ml Dextrose/Water (Dextrose 50%) 25 gm IVP PRN PRN PRN Reason: HYPOGLYCEMIA PROTOCOL Famotidine (Pepcid) 20 mg PER TUBE DAILY [facility] Last Admin: 05/31/17 09:06 Dose: 20 mg Furosemide (Lasix) 20 mg SLOW IVP 0600,1400 [facility] Last Admin: 05/31/17 05:34 Dose: 20 mg Glucagon (Glucagon) 1 mg IM PRN PRN PRN Reason: HYPOGLYCEMIA PROTOCOL Dextrose/Water (D5w) 1,000 mls @ 0 mls/hr IV INF PRN; As Directed PRN Reason: HYPOGLYCEMIA PROTOCOL Cefepime HCl 1 gm/Miscellaneous Medication 1 each/ Sterile Water 10 mls @ 120 mls/hr SLOW IVP 0900 [facility] Last Admin: 05/31/17 09:06 Dose: 10 mls Insulin Detemir 15 units/ (Miscellaneous Medication) 0.15 mls @ 0 mls/hr SC QAM [facility] Last Admin: 05/31/17 09:06 Dose: 0.15 mls Levofloxacin 500 mg/ Device 100 mls @ 100 mls/hr IVPB 1200 [facility] Last Admin: 05/30/17 11:06 Dose: 100 mls Insulin Human Lispro (Humalog) 0 units SC .MODERATE SLIDING SC PRN; Protocol PRN Reason: MODERATE SLIDING SCALE Last Admin: 05/30/17 20:09 Dose: 2 unit Scopolamine (Transderm Scop) 1.5 mg TD Q3D [facility] Last Admin: 05/31/17 09:04 Dose: 1.5 mg Sodium Chloride (Flush - Normal Saline) 10 ml IVF Q12HR [facility] Last Admin: 05/31/17 09:07 Dose: 10 ml Sodium Chloride (Flush - Normal Saline) 10 ml IVF PRN PRN PRN Reason: Saline Flush
[2017-05-31] MEDS: HumaLOG 300 UNITS/3 ML VIAL SC PRN (16:20)
[2017-06-01 04:56] LABS: #Lymphocytes 0.6 thou/uL (1.20-3.40); #Monocytes 0.5 thou/uL (0.11-0.59); #Neutrophils 10.4 thou/uL (1.40-6.50); %Basophils 0.1 % (0.0-1.0); %Eosinophils 0.4 % (0.0-10.0); %Lymphocytes 5.5 % (21.0-51.0); %Monocytes 4.4 % (0.0-10.0); Hematocrit 24.3 % (36.0-47.0); Mean Platelet Volume 10.9 fL (7.4-10.4); Red Blood Cell (RBC) Count 2.58 mill/uL (4.20-5.40); White Blood Cell (WBC) Count 11.6 thou/uL (4.8-10.8)
[2017-06-01] MEDS: Furosemide 20 MG/2 ML VIAL SLOW IVP SCH ×2 (06:55→13:21)
[2017-06-01] MEDS: Insulin Detemir 100 UNITS/ML 15 UNITS in Pre-Filled Syringe 1 EACH SC SCH ×2 (09:07→21:32)
[2017-06-01] MEDS: Famotidine 20 MG TAB PER TUBE SCH (09:08)
[2017-06-01] MEDS: Cefepime 1 GM, Admixture Fee 1 EACH in Sterile Water 10 ML SLOW IVP SCH (10:46)
--- NOTE | 2017-06-01 12:13 | PDOC.PN ---
- Subjective Encounter Start Date: 06/01/17 Encounter Start Time: 11:00 Subjective: no sob, is awake, not oriented - Objective Resuscitation Status: Resuscitation Status DNR:Do Not Resuscitate MAR Reviewed: Yes Vital Signs & Weight: Vital Signs (12 hours) Temp Pulse Resp BP Pulse Ox 06/01/17 10:35 77 20 100 06/01/17 08:00 97.5 F L 83 16 136/73 96 06/01/17 07:17 94 L 06/01/17 07:14 81 20 94 L 06/01/17 04:00 97.4 F L 85 20 130/68 98 06/01/17 02:15 85 20 95 Weight Admit Weight 113 lb Weight 129 lb 7.64 oz Most Recent Monitor Data Heart Rate from ECG 73 NIBP 120/61 NIBP BP-Mean 78 Respiration from ECG 16 SpO2 100 I&O: 05/31/17 06/01/17 06/02/17 06:59 06:59 05:59 Intake Total 1031 90 Output Total 2900 1550 Balance -9469 -4600 Result Diagrams: 06/01/17 04:36 05/30/17 04:54 Additional Labs: Accuchecks 06/01/17 06/01/17 05/31/17 11:39 04:12 19:48 POC Glucose 268 H 184 H 156 H 05/31/17 05/31/17 16:13 11:10 POC Glucose 212 H 138 H Phys Exam - Physical Examination HEENT: PERRLA, moist MMs Neck: no JVD, supple Respiratory: no wheezing, no rales Cardiovascular: RRR, no significant murmur Gastrointestinal: soft, non-tender, positive bowel sounds Musculoskeletal: pulses present, edema present Neurological: non-focal, moves all 4 limbs Dx/Plan (1) Aspiration pneumonia Code(s): J69.0 - PNEUMONITIS DUE TO INHALATION OF FOOD AND VOMIT Status: Acute Qualifiers: Aspiration pneumonia type: due to gastric secretions Laterality: bilateral (2) Dysphagia, oropharyngeal Code(s): R13.12 - DYSPHAGIA, OROPHARYNGEAL PHASE Status: Acute (3) Thrombocytopenia Code(s): D69.6 - THROMBOCYTOPENIA, UNSPECIFIED Status: Acute Comment: resolving (4) Anemia, normocytic normochromic Code(s): D64.9 - ANEMIA, UNSPECIFIED Status: Chronic (5) DM2 (diabetes mellitus, type 2) Status: Chronic Qualifiers: Diabetes mellitus complication status: with hyperglycemia Diabetes mellitus group home insulin use: unspecified exterminator helper termite insulin use status Qualified Code(s): E11.65 - Type 2 diabetes mellitus with hyperglycemia Comment: (6) HLD (hyperlipidemia) Code(s): E78.5 - HYPERLIPIDEMIA, UNSPECIFIED Status: Chronic Qualifiers: Hyperlipidemia type: unspecified Qualified Code(s): E78.5 - Hyperlipidemia , unspecified (7) HTN (hypertension) Code(s): I10 - ESSENTIAL (PRIMARY) HYPERTENSION Status: Chronic Qualifiers: Hypertension type: essential hypertension Qualified Code(s): I10 - Essential (primary) hypertension (8) Acute respiratory failure Code(s): J96.00 - ACUTE RESPIRATORY FAILURE, UNSP W HYPOXIA OR HYPERCAPNIA Status: Resolved Comment: - Plan is on cefepime and levaquin -: duonebs, scopalamine patch, increase levemir to 15 u bid -: family to decide on peg -: PT to mobilze as tolerated -: is npo, will start iv fluids * . Review of Systems - Medications/Allergies Allergies/Adverse Reactions: Allergies Allergy/AdvReac Type Severity Reaction Status Date / Time No Known Drug Allergies Allergy Verified 05/20/17 21:30 Medications: Current Medications Albuterol/Ipratropium (Duoneb) 3 ml NEB [id number] [facility] Last Admin: 06/01/17 10:35 Dose: 3 ml Dextrose/Water (Dextrose 50%) 25 gm IVP PRN PRN PRN Reason: HYPOGLYCEMIA PROTOCOL Enoxaparin Sodium (Lovenox) 40 mg SC 0900 [facility] Famotidine (Pepcid) 20 mg PER TUBE DAILY [facility] Last Admin: 06/01/17 09:08 Dose: 20 mg Furosemide (Lasix) 20 mg SLOW IVP 0600,1400 [facility] Last Admin: 06/01/17 06:55 Dose: 20 mg Glucagon (Glucagon) 1 mg IM PRN PRN PRN Reason: HYPOGLYCEMIA PROTOCOL Dextrose/Water (D5w) 1,000 mls @ 0 mls/hr IV INF PRN; As Directed PRN Reason: HYPOGLYCEMIA PROTOCOL Cefepime HCl 1 gm/Miscellaneous Medication 1 each/ Sterile Water 10 mls @ 120 mls/hr SLOW IVP 0900 [facility] Last Admin: 06/01/17 10:46 Dose: 10 mls Insulin Detemir 15 units/ (Miscellaneous Medication) 0.15 mls @ 0 mls/hr SC QAM [facility] Last Admin: 06/01/17 09:07 Dose: 0.15 mls Levofloxacin 500 mg/ Device 100 mls @ 100 mls/hr IVPB 1200 [facility] Last Admin: 06/01/17 10:51 Dose: 100 mls Sodium Chloride (Normal Saline 0.9%) 1,000 mls @ 50 mls/hr IV .Q20H [facility] Insulin Human Lispro (Humalog) 0 units SC .MODERATE SLIDING SC PRN; Protocol PRN Reason: MODERATE SLIDING SCALE Last Admin: 05/31/17 16:20 Dose: 4 unit Scopolamine (Transderm Scop) 1.5 mg TD Q3D [facility] Last Admin: 05/31/17 09:04 Dose: 1.5 mg Sodium Chloride (Flush - Normal Saline) 10 ml IVF Q12HR [facility] Last Admin: 06/01/17 09:06 Dose: 10 ml Sodium Chloride (Flush - Normal Saline) 10 ml IVF PRN PRN PRN Reason: Saline Flush
--- NOTE | 2017-06-01 12:17 | PRG ---
DATE OF SERVICE: 06/01/2017 SUBJECTIVE: Ms. Mcconnell is about the same. OBJECTIVE: VITAL SIGNS: Temperature 97.5, pulse 83, respirations 16, O2 sat 96% on 3 liters, blood pressure 13 6/73. HEENT: Unremarkable. NECK: No JVD. CHEST: Clear without wheezing. CARDIAC: S1 and S2 regular. ABDOMEN: Soft. EXTREMITIES: No edema. LABORATORY DATA: White blood cell count 11.6, hematocrit 24.3, platelet count 166. ASSESSMENT: 1. Improved thrombocytopenia. 2. Swallowing dysfunction. 3. Status post pneumonia. PLAN: 1. Probably will need a PEG tube placement. 2. Can restart her Lovenox for DVT prophylaxis given improvement in the platelet count.
[2017-06-01] MEDS: Sodium Chloride 0.9% 1,000 ML IV SCH (13:21)
[2017-06-01] MEDS: HumaLOG 300 UNITS/3 ML VIAL SC PRN (16:47)
[2017-06-02] MEDS: Furosemide 20 MG/2 ML VIAL SLOW IVP SCH ×2 (05:08→12:18)
[2017-06-02 05:35] LABS: #Eosinphils 0.1 thou/uL (0.0-0.7); #Lymphocytes 0.6 thou/uL (1.20-3.40); #Monocytes 0.7 thou/uL (0.11-0.59); #Neutrophils 8.3 thou/uL (1.40-6.50); %Basophils 0.2 % (0.0-1.0); %Eosinophils 0.6 % (0.0-10.0); %Lymphocytes 6.1 % (21.0-51.0); Hematocrit 23.9 % (36.0-47.0); Mean Platelet Volume 9.2 fL (7.4-10.4); Red Blood Cell (RBC) Count 2.52 mill/uL (4.20-5.40); White Blood Cell (WBC) Count 9.6 thou/uL (4.8-10.8)
[2017-06-02 05:45] LABS: BUN (Urea Nitrogen) 20 mg/dL (9.8-20.1); Calc. Creatinine Clearance 42 mL/min (70-130); Calcium 8.8 mg/dL (7.8-10.44); Estimated GFR-MDRD 64
[2017-06-02 05:54] LABS: Anion Gap 12 mmol/L (10-20); Carbon Dioxide 37 mmol/L (23-31); Chloride 101 mmol/L (98-107)
[2017-06-02] MEDS: Insulin Detemir 100 UNITS/ML 15 UNITS in Pre-Filled Syringe 1 EACH SC SCH (07:03)
[2017-06-02] MEDS: Famotidine 20 MG TAB PER TUBE SCH (07:03)
[2017-06-02] MEDS: Sodium Chloride 0.9% 1,000 ML IV SCH (07:04)
[2017-06-02] MEDS: Enoxaparin Sodium 40 MG/0.4 ML SYRINGE SC SCH (09:36)
[2017-06-02] MEDS: Cefepime 1 GM, Admixture Fee 1 EACH in Sterile Water 10 ML SLOW IVP SCH (10:35)
--- NOTE | 2017-06-02 12:48 | PDOC.PN ---
- Subjective Encounter Start Date: 06/02/17 Encounter Start Time: 11:30 Subjective: awake, oriented well -: moves all extremities, follows verbal stimuli - Objective Resuscitation Status: Resuscitation Status DNR:Do Not Resuscitate MAR Reviewed: Yes Vital Signs & Weight: Vital Signs (12 hours) Temp Pulse Resp BP BP Pulse Ox 06/02/17 11:35 97.2 F L 87 16 145/84 H 100 06/02/17 10:38 84 16 06/02/17 08:00 97.2 F L 84 16 94 L 06/02/17 07:21 97.2 F L 77 18 128/72 94 L 06/02/17 06:45 98 06/02/17 06:41 78 20 98 06/02/17 05:19 97.9 F 85 18 139/70 95 06/02/17 02:50 74 12 99 Weight Admit Weight 113 lb Weight 127 lb 4.8 oz Most Recent Monitor Data Heart Rate from ECG 73 NIBP 120/61 NIBP BP-Mean 78 Respiration from ECG 16 SpO2 100 I&O: 06/01/17 06/02/17 06/03/17 07:59 06:59 06:59 Intake Total Output Total Balance Result Diagrams: 06/02/17 05:24 06/02/17 05:24 Additional Labs: Accuchecks 06/02/17 06/02/17 06/02/17 08:52 07:25 06:31 POC Glucose 73 56 L* 70 06/02/17 06/02/17 06/02/17 05:16 04:38 04:31 POC Glucose 118 H 240 H Less than 35 L* 06/01/17 06/01/17 19:45 16:39 POC Glucose 116 H 213 H Phys Exam - Physical Examination HEENT: PERRLA, moist MMs Neck: no JVD, supple Respiratory: no rales rhonchi+ Cardiovascular: RRR, no significant murmur Gastrointestinal: soft, non-tender, positive bowel sounds Musculoskeletal: no edema, pulses present Neurological: non-focal, moves all 4 limbs Psychiatric: A&O x 3 Dx/Plan (1) Aspiration pneumonia Code(s): J69.0 - PNEUMONITIS DUE TO INHALATION OF FOOD AND VOMIT Status: Acute Qualifiers: Aspiration pneumonia type: due to gastric secretions Laterality: bilateral (2) Dysphagia, oropharyngeal Code(s): R13.12 - DYSPHAGIA, OROPHARYNGEAL PHASE Status: Acute (3) Thrombocytopenia Code(s): D69.6 - THROMBOCYTOPENIA, UNSPECIFIED Status: Acute Comment: resolving (4) Anemia, normocytic normochromic Code(s): D64.9 - ANEMIA, UNSPECIFIED Status: Chronic (5) DM2 (diabetes mellitus, type 2) Status: Chronic Qualifiers: Diabetes mellitus complication status: with hypoglycemia Diabetes mellitus mcc insulin use: unspecified mcc insulin use status Comment: (6) HLD (hyperlipidemia) Code(s): E78.5 - HYPERLIPIDEMIA, UNSPECIFIED Status: Chronic Qualifiers: Hyperlipidemia type: unspecified Qualified Code(s): E78.5 - Hyperlipidemia , unspecified (7) HTN (hypertension) Code(s): I10 - ESSENTIAL (PRIMARY) HYPERTENSION Status: Chronic Qualifiers: Hypertension type: essential hypertension Qualified Code(s): I10 - Essential (primary) hypertension (8) Acute respiratory failure Code(s): J96.00 - ACUTE RESPIRATORY FAILURE, UNSP W HYPOXIA OR HYPERCAPNIA Status: Resolved Comment: - Plan is on cefepime and levaquin -: start D5NS, pulled her dobhoff out, fingerstick ranging around 56-240 -: d/w daughter extensively, will decide on peg tube today -: daughter might consider taking her home if she stabiizes more, she has lot -: - of family help with someone 18/02 at home. * . Hb around 7g, will transfuse if less than 7g. Was ambulating well prior to hospitalization per daughter. Review of Systems - Medications/Allergies Allergies/Adverse Reactions: Allergies Allergy/AdvReac Type Severity Reaction Status Date / Time No Known Drug Allergies Allergy Verified 05/20/17 21:30 Medications: Current Medications Albuterol/Ipratropium (Duoneb) 3 ml NEB [id number] [facility] Last Admin: 06/02/17 10:38 Dose: 3 ml Dextrose/Water (Dextrose 50%) 25 gm IVP PRN PRN PRN Reason: HYPOGLYCEMIA PROTOCOL Last Admin: 06/02/17 04:33 Dose: 25 gm Enoxaparin Sodium (Lovenox) 40 mg SC 0900 [facility] Last Admin: 06/02/17 09:36 Dose: Not Given Famotidine (Pepcid) 20 mg PER TUBE DAILY [facility] Last Admin: 06/02/17 07:03 Dose: Not Given Furosemide (Lasix) 20 mg SLOW IVP 0600,1400 [facility] Last Admin: 06/02/17 12:18 Dose: 20 mg Glucagon (Glucagon) 1 mg IM PRN PRN PRN Reason: HYPOGLYCEMIA PROTOCOL Dextrose/Water (D5w) 1,000 mls @ 0 mls/hr IV INF PRN; As Directed PRN Reason: HYPOGLYCEMIA PROTOCOL Last Admin: 06/02/17 06:43 Dose: 1,000 mls Cefepime HCl 1 gm/Miscellaneous Medication 1 each/ Sterile Water 10 mls @ 120 mls/hr SLOW IVP 0900 [facility] Last Admin: 06/02/17 10:35 Dose: 10 mls Levofloxacin 500 mg/ Device 100 mls @ 100 mls/hr IVPB 1200 [facility] Last Admin: 06/02/17 12:18 Dose: 100 mls Sodium Chloride (Normal Saline 0.9%) 1,000 mls @ 50 mls/hr IV .Q20H [facility] Last Admin: 06/02/17 07:04 Dose: Not Given Insulin Human Lispro (Humalog) 0 units SC .MODERATE SLIDING SC PRN; Protocol PRN Reason: MODERATE SLIDING SCALE Last Admin: 06/01/17 16:47 Dose: 4 unit Scopolamine (Transderm Scop) 1.5 mg TD Q3D [facility] Last Admin: 05/31/17 09:04 Dose: 1.5 mg Sodium Chloride (Flush - Normal Saline) 10 ml IVF Q12HR [facility] Last Admin: 06/02/17 09:36 Dose: Not Given Sodium Chloride (Flush - Normal Saline) 10 ml IVF PRN PRN PRN Reason: Saline Flush
[2017-06-02] MEDS: Dextrose 5 % And 0.9 % NaCl 1,000 ML IV SCH ×2 (13:25→18:00)
[2017-06-03] MEDS: Famotidine 20 MG TAB PER TUBE SCH (07:54)
--- NOTE | 2017-06-03 08:46 | PRG ---
DATE OF SERVICE: 06/03/2017 The patient is doing well. Her NG tube is out. She tells me she is now eating. PHYSICAL EXAMINATION: VITAL SIGNS: Temperature 97.3, pulse 83, respirations 16, O2 sat 94% on 3 liters. HEENT: Unremarkable. NECK: No JVD. CHEST: Clear. CARDIAC: S1 and S2 regular. ABDOMEN: Soft. EXTREMITIES: No edema. ASSESSMENT: 1. Aspiration pneumonia, which is improved. 2. Difficulty swallowing and recurrent aspiration. PLAN: 1. She can probably come off the antibiotics. 2. PEG tube is planned according to the orders in the chart.
[2017-06-03] MEDS: Enoxaparin Sodium 40 MG/0.4 ML SYRINGE SC SCH (09:07)
[2017-06-03] MEDS: Scopolamine 1.5 mg/72 hour Patch TD SCH (09:08)
[2017-06-03] MEDS: Furosemide 20 MG/2 ML VIAL SLOW IVP SCH (09:08)
[2017-06-03] MEDS: Cefepime 1 GM, Admixture Fee 1 EACH in Sterile Water 10 ML SLOW IVP SCH (09:08)
--- NOTE | 2017-06-03 12:14 | PDOC.PN ---
- Subjective Encounter Start Date: 06/03/17 Encounter Start Time: 11:50 Subjective: is awake and responds well to verbal questions -: no sob - Objective Resuscitation Status: Resuscitation Status DNR:Do Not Resuscitate MAR Reviewed: Yes Vital Signs & Weight: Vital Signs (12 hours) Temp Pulse Resp BP Pulse Ox 06/03/17 10:23 66 18 94 L 06/03/17 09:08 97.2 F L 66 20 142/66 H 92 L 06/03/17 08:36 98 06/03/17 08:34 67 20 968 H 06/03/17 02:57 93 16 94 L Weight Admit Weight 113 lb Weight 127 lb 4.8 oz Most Recent Monitor Data Heart Rate from ECG 73 NIBP 120/61 NIBP BP-Mean 78 Respiration from ECG 16 SpO2 100 I&O: 06/02/17 06/03/17 06/04/17 06:59 06:59 06:59 Intake Total 600 Output Total 1700 Balance -1100 Result Diagrams: 06/02/17 05:24 06/02/17 05:24 Additional Labs: Accuchecks 06/03/17 06/03/17 06/02/17 10:50 04:35 20:12 POC Glucose 242 H 254 H 145 H 06/02/17 06/02/17 16:38 11:35 POC Glucose 114 H 70 Phys Exam - Physical Examination HEENT: PERRLA, moist MMs Neck: no JVD, supple Respiratory: no wheezing, no rales Cardiovascular: RRR, no significant murmur Gastrointestinal: soft, non-tender, positive bowel sounds Musculoskeletal: no edema, pulses present Neurological: non-focal, moves all 4 limbs Dx/Plan (1) Aspiration pneumonia Code(s): J69.0 - PNEUMONITIS DUE TO INHALATION OF FOOD AND VOMIT Status: Acute Qualifiers: Aspiration pneumonia type: due to gastric secretions Laterality: bilateral (2) Dysphagia, oropharyngeal Code(s): R13.12 - DYSPHAGIA, OROPHARYNGEAL PHASE Status: Acute (3) Thrombocytopenia Code(s): D69.6 - THROMBOCYTOPENIA, UNSPECIFIED Status: Acute Comment: resolving (4) Anemia, normocytic normochromic Code(s): D64.9 - ANEMIA, UNSPECIFIED Status: Chronic (5) DM2 (diabetes mellitus, type 2) Status: Chronic Qualifiers: Diabetes mellitus complication status: with hypoglycemia Diabetes mellitus termite treater insulin use: unspecified group home insulin use status Comment: (6) HLD (hyperlipidemia) Code(s): E78.5 - HYPERLIPIDEMIA, UNSPECIFIED Status: Chronic Qualifiers: Hyperlipidemia type: unspecified Qualified Code(s): E78.5 - Hyperlipidemia , unspecified (7) HTN (hypertension) Code(s): I10 - ESSENTIAL (PRIMARY) HYPERTENSION Status: Chronic Qualifiers: Hypertension type: essential hypertension Qualified Code(s): I10 - Essential (primary) hypertension (8) Acute respiratory failure Code(s): J96.00 - ACUTE RESPIRATORY FAILURE, UNSP W HYPOXIA OR HYPERCAPNIA Status: Resolved Comment: - Plan d/w daughter over phone, wants peg tube to be placed -: d/w , for peg this afternoon -: rehab eval, fingerstick glucose is better with no low # -: eventual dc plan is to home with -: may dc iv fluids once peg feeding is started * . is on cefepime and levaquin, nebs, scopalamine patch. Review of Systems - Medications/Allergies Allergies/Adverse Reactions: Allergies Allergy/AdvReac Type Severity Reaction Status Date / Time No Known Drug Allergies Allergy Verified 05/20/17 21:30 Medications: Current Medications Albuterol/Ipratropium (Duoneb) 3 ml NEB [id number] [facility] Last Admin: 06/03/17 10:23 Dose: 3 ml Dextrose/Water (Dextrose 50%) 25 gm IVP PRN PRN PRN Reason: HYPOGLYCEMIA PROTOCOL Last Admin: 06/02/17 04:33 Dose: 25 gm Enoxaparin Sodium (Lovenox) 40 mg SC 0900 [facility] Last Admin: 06/03/17 09:07 Dose: Not Given Famotidine (Pepcid) 20 mg PER TUBE DAILY [facility] Last Admin: 06/03/17 07:54 Dose: Not Given Furosemide (Lasix) 20 mg SLOW IVP DAILY [facility] Last Admin: 06/03/17 09:08 Dose: 20 mg Glucagon (Glucagon) 1 mg IM PRN PRN PRN Reason: HYPOGLYCEMIA PROTOCOL Dextrose/Water (D5w) 1,000 mls @ 0 mls/hr IV INF PRN; As Directed PRN Reason: HYPOGLYCEMIA PROTOCOL Last Admin: 06/02/17 06:43 Dose: 1,000 mls Cefepime HCl 1 gm/Miscellaneous Medication 1 each/ Sterile Water 10 mls @ 120 mls/hr SLOW IVP 0900 [facility] Last Admin: 06/03/17 09:08 Dose: 10 mls Levofloxacin 500 mg/ Device 100 mls @ 100 mls/hr IVPB 1200 [facility] Last Admin: 06/02/17 12:18 Dose: 100 mls Dextrose/Sodium Chloride (D5 0.9% Ns) 1,000 mls @ 50 mls/hr IV .Q20H [facility] Last Admin: 06/02/17 18:00 Dose: 1,000 mls Insulin Human Lispro (Humalog) 0 units SC .MODERATE SLIDING SC PRN; Protocol PRN Reason: MODERATE SLIDING SCALE Last Admin: 06/01/17 16:47 Dose: 4 unit Scopolamine (Transderm Scop) 1.5 mg TD Q3D [facility] Last Admin: 06/03/17 09:08 Dose: 1.5 mg Sodium Chloride (Flush - Normal Saline) 10 ml IVF Q12HR [facility] Last Admin: 06/03/17 09:09 Dose: Not Given Sodium Chloride (Flush - Normal Saline) 10 ml IVF PRN PRN PRN Reason: Saline Flush
[2017-06-03] MEDS ORDERED: Sodium Chloride 0.9% 10 ML ONE (19:03)
[2017-06-03] MEDS ORDERED: Ondansetron HCl/PF 4 MG/2 ML Vial IVP PRN (19:08)
[2017-06-03] MEDS ORDERED: Propofol 200 MG/20 ML VIAL ONE (19:28)
[2017-06-03] MEDS ORDERED: Lidocaine 1% PF 5 ML VIAL ONE (19:28)
--- NOTE | 2017-06-04 06:14 | CON ---
DATE OF CONSULTATION: 06/03/2017 REFERRING PHYSICIAN: Dr. Henry Pope. REASON FOR CONSULTATION: Aspiration pneumonia, failed modified barium swallow. The patient needs a PEG tube for long-term nutritional support. HISTORY OF PRESENT ILLNESS: Ms. Carolynn Mcconnell is a very fragile looking 77-year-old black female hos pitalized with aspiration pneumonia. She was actually in the ICU on the ventilator. Now, she is ba ck to the floor and she is actually doing much better. Apparently, she has had bilateral aspiration pneumonia and respiratory failure recently. The patient is not eating well because of the aspirati on. The patient has no abdominal pain, no nausea, no vomiting. The patient has had a light stroke in 08/2016 and recovered from stroke. Subsequently, fell down and broke her left hip and she had gray rgery. The patient is hospitalized because of the bilateral pneumonia and aspiration. The patient has had no difficulty swallowing before this happened. She is n.p.o. at the present time. No other relevant history. ALLERGIES: None. SOCIAL HISTORY: The patient lives with her family. MEDICAL ILLNESSES: 1. Hypertension. 2. Diabetes mellitus. 3. Hyperlipidemia. 4. Chronic kidney disease. 5. Status post CVA with recovery in 08/2016. 6. History of left hip fracture few months ago, status post surgery. 7. Status post complete hysterectomy. MEDICATIONS: List reviewed. REVIEW OF SYSTEMS: Constitutional: No history of any fever. No weight loss, but she has experienc ed some altered mental status because of pneumonia recently. Central Nervous System: History of re cent CVA with recovery. No history of dysphagia or odynophagia. Respiratory System: History of co ugh with scanty sputum. No dyspnea at the present time. Cardiovascular System: No chest pain, no palpitation, no orthopnea or PND. Gastrointestinal: No abdominal pain, nausea or vomiting. Genito urinary: Unremarkable. Musculoskeletal: No back pain, arthralgia or myalgia. PHYSICAL EXAMINATION: GENERAL: Revealed a fragile-looking, black female who appears very comfortable. She is awake, aler t and communicative. VITAL SIGNS: Afebrile. Pulse is 66 and blood pressure 142/66. HEENT: Conjunctivae clear. CARDIOVASCULAR SYSTEM: First and second heart sounds are normal. LUNGS: Clear to auscultation. ABDOMEN: Soft to palpate. Abdomen is nondistended. She has a midline scar over the lower abdomen. There is no organomegaly or masses. EXTREMITIES: Reveal no edema. LABORATORY DATA: WBC 11,600, hemoglobin 7.4, hematocrit 24.3, MCV 94.1, platelet count 166,000, manjeet ymorphs 80 and lymphocytes 5. Serum chemistries: Sodium is 147, potassium is 3.2, chloride is 101, bicarb is 37, BUN is 20, creatinine is 1.01 and glucose is 110. X-RAY FINDINGS: Her chest x-ray shows bilateral effusions and also hyperinflation of lung pang. CLINICAL IMPRESSION: A 77-year-old black female with recent cerebrovascular accident with recovery in 08/2016 and has had a fall with fracture and left hip surgery. The patient presented with altere d mental status and bilateral pneumonia. It appears there is bilateral aspiration pneumonia. The p atient probably needs a percutaneous endoscopic gastrostomy tube for long-term nutrition support. I had a long talk with the patient and patient's family and explained about the esophagogastroduodeno scopy procedure, risks and benefits. The family is agreeable. I will plan for esophagogastroduoden oscopy and percutaneous endoscopic gastrostomy tube today later on.
--- NOTE | 2017-06-04 06:34 | OP ---
DATE OF SURGERY: 06/03/2017 OPERATIVE PROCEDURE: Esophagogastroduodenoscopy with endoscopic gastrostomy tube placement. PREOPERATIVE DIAGNOSES: Aspiration pneumonia, failed modified barium swallow. POSTOPERATIVE DIAGNOSES: 1. Hiatus hernia. 2. Diffuse gastritis with 2-3 small gastric ulcers. 3. Multiple ulcers in the duodenal bulb. PROCEDURE NOTE: The patient was placed on her back and was given sedation by Anesthesia Department. The patient was already on scheduled antibiotics. A bite block was placed. A Pentax video gastroscope under direct vision was passed down the oropharynx, past the gastroesophageal junction, into stomach and subsequently descending duodenum. The descending duodenum, no pathology seen. The patient had multiple ulcerations in the duodenal bulb . The patient has diffuse gastritis due to small gastric ulcers. A G-tube site was marked by applying finger pressure and also transillumination from within. The site was cleaned and surgically prepped. The site was anesthetized with 1% Xylocaine infiltration. Over the site, a size 16 Angiocath was advanced into the stomach. A guidewire was fed through the Angiocath into the stomach. The wire was pulled outside the mouth using the polypectomy snare. A 0.5-0.75 cm sized incision was made over the abdominal wall. The wire was pulled back retrograde and the tube left in place. The patient rescoped again to confirm proper placement of G-tube. No complications noted. The stomach was decompressed and the scope removed. RECOMMENDATIONS: Hold feeding for the next 8 hours, may start tube feeding with Glucerna 1 can every 6 hours from tomorrow morning. MTDD
[2017-06-04] MEDS: Dextrose 5 % And 0.9 % NaCl 1,000 ML IV SCH ×2 (07:24→09:42)
--- NOTE | 2017-06-04 08:23 | PRG ---
DATE OF SERVICE: 06/04/2017 She had a PEG tube placed yesterday. She is doing okay today. PHYSICAL EXAMINATION: VITAL SIGNS: Temperature 97.4, pulse 91, respirations 16, O2 sat 93%, blood pressure 111/59. HEENT: Unremarkable. NECK: No JVD. CHEST: Clear. CARDIAC: S1 and S2 regular. ABDOMEN: PEG tube looks okay. EXTREMITIES: No edema. LABORATORY DATA: No new labs were done today. ASSESSMENT: 1. Status post aspiration pneumonia. 2. Status post PEG tube placement. PLAN: 1. Stop IV antibiotics. 2. Would give 5 more days of Omnicef through her PEG tube. 3. From a pulmonary disposition, she is clear to go home. I will sign off the case. Please recall if further assistance needed.
[2017-06-04] MEDS: Furosemide 20 MG/2 ML VIAL SLOW IVP SCH (09:38)
[2017-06-04] MEDS: Famotidine 20 MG TAB PER TUBE SCH (09:38)
[2017-06-04] MEDS: Enoxaparin Sodium 40 MG/0.4 ML SYRINGE SC SCH (09:38)
[2017-06-04] MEDS: Cefdinir 300 MG CAP PER TUBE SCH (09:38)
[2017-06-04] MEDS: HumaLOG 300 UNITS/3 ML VIAL SC PRN (12:56)
--- NOTE | 2017-06-04 13:03 | PDOC.PN ---
- Subjective Encounter Start Date: 06/04/17 Encounter Start Time: 08:15 Subjective: awake, not in distress - Objective Resuscitation Status: Resuscitation Status DNR:Do Not Resuscitate MAR Reviewed: Yes Vital Signs & Weight: Vital Signs (12 hours) Temp Pulse Resp BP Pulse Ox 06/04/17 11:40 97 F L 80 16 105/63 93 L 06/04/17 10:10 76 14 06/04/17 08:23 97.3 F L 76 16 119/70 92 L 06/04/17 08:00 97.3 F L 76 14 06/04/17 06:51 80 14 06/04/17 04:00 97.4 F L 91 18 111/59 L 93 L 06/04/17 02:46 80 16 91 L Weight Admit Weight 113 lb Weight 127 lb 4.8 oz Most Recent Monitor Data Heart Rate from ECG 73 NIBP 120/61 NIBP BP-Mean 78 Respiration from ECG 16 SpO2 100 I&O: 06/03/17 06/04/17 06/05/17 06:59 06:59 06:59 Intake Total 600 700 Output Total 1700 2100 Balance -1100 -1400 Result Diagrams: 06/02/17 05:24 06/02/17 05:24 Additional Labs: Accuchecks 06/04/17 06/04/17 06/03/17 10:56 04:00 16:30 POC Glucose 298 H 219 H 251 H Phys Exam - Physical Examination HEENT: PERRLA, moist MMs Neck: no JVD, supple Respiratory: no wheezing, no rales Cardiovascular: RRR, no significant murmur Gastrointestinal: soft, no distention, positive bowel sounds peg+ Musculoskeletal: no edema, pulses present Neurological: non-focal, moves all 4 limbs Dx/Plan (1) Aspiration pneumonia Code(s): J69.0 - PNEUMONITIS DUE TO INHALATION OF FOOD AND VOMIT Status: Acute Qualifiers: Aspiration pneumonia type: due to gastric secretions Laterality: bilateral (2) Dysphagia, oropharyngeal Code(s): R13.12 - DYSPHAGIA, OROPHARYNGEAL PHASE Status: Acute Comment: s/p peg 06/03/17 (3) Thrombocytopenia Code(s): D69.6 - THROMBOCYTOPENIA, UNSPECIFIED Status: Resolved (4) Anemia, normocytic normochromic Code(s): D64.9 - ANEMIA, UNSPECIFIED Status: Chronic (5) DM2 (diabetes mellitus, type 2) Status: Chronic Qualifiers: Diabetes mellitus complication status: with hypoglycemia Diabetes mellitus mcc insulin use: without mcc use Comment: (6) HLD (hyperlipidemia) Code(s): E78.5 - HYPERLIPIDEMIA, UNSPECIFIED Status: Chronic Qualifiers: Hyperlipidemia type: unspecified Qualified Code(s): E78.5 - Hyperlipidemia , unspecified (7) HTN (hypertension) Code(s): I10 - ESSENTIAL (PRIMARY) HYPERTENSION Status: Chronic Qualifiers: Hypertension type: essential hypertension Qualified Code(s): I10 - Essential (primary) hypertension (8) Acute respiratory failure Code(s): J96.00 - ACUTE RESPIRATORY FAILURE, UNSP W HYPOXIA OR HYPERCAPNIA Status: Resolved Comment: - Plan tolerating peg feeding, switch to oral meds via peg, omnicef -: PT recommends rehab/swing bed -: d/w daughter over phone, is waiting to d/w CM here -: rehab eval is pending -: mod humalog cov for now, dc iv fluids * . Review of Systems - Medications/Allergies Allergies/Adverse Reactions: Allergies Allergy/AdvReac Type Severity Reaction Status Date / Time No Known Drug Allergies Allergy Verified 05/20/17 21:30 Medications: Current Medications Albuterol/Ipratropium (Duoneb) 3 ml NEB [id number] PRN PRN Reason: . Cefdinir (Omnicef) 600 mg PER TUBE DAILY [facility] Last Admin: 06/04/17 09:38 Dose: 600 mg Dextrose/Water (Dextrose 50%) 25 gm IVP PRN PRN PRN Reason: HYPOGLYCEMIA PROTOCOL Last Admin: 06/02/17 04:33 Dose: 25 gm Enoxaparin Sodium (Lovenox) 40 mg SC 0900 [facility] Last Admin: 06/04/17 09:38 Dose: 40 mg Famotidine (Pepcid) 20 mg PER TUBE DAILY [facility] Last Admin: 06/04/17 09:38 Dose: 20 mg Furosemide (Lasix) 20 mg SLOW IVP DAILY [facility] Last Admin: 06/04/17 09:38 Dose: 20 mg Glucagon (Glucagon) 1 mg IM PRN PRN PRN Reason: HYPOGLYCEMIA PROTOCOL Dextrose/Water (D5w) 1,000 mls @ 0 mls/hr IV INF PRN; As Directed PRN Reason: HYPOGLYCEMIA PROTOCOL Last Admin: 06/02/17 06:43 Dose: 1,000 mls Dextrose/Sodium Chloride (D5 0.9% Ns) 1,000 mls @ 50 mls/hr IV .Q20H [facility] Last Admin: 06/04/17 09:42 Dose: 1,000 mls Insulin Human Lispro (Humalog) 0 units SC .MODERATE SLIDING SC PRN; Protocol PRN Reason: MODERATE SLIDING SCALE Last Admin: 06/01/17 16:47 Dose: 4 unit Scopolamine (Transderm Scop) 1.5 mg TD Q3D [facility] Last Admin: 06/03/17 09:08 Dose: 1.5 mg Sodium Chloride (Flush - Normal Saline) 10 ml IVF Q12HR [facility] Last Admin: 06/04/17 09:38 Dose: 10 ml Sodium Chloride (Flush - Normal Saline) 10 ml IVF PRN PRN PRN Reason: Saline Flush
[2017-06-04] MEDS: Atorvastatin Calcium 10 MG TAB PO SCH (21:57)
[2017-06-05] MEDS: Enoxaparin Sodium 40 MG/0.4 ML SYRINGE SC SCH (10:06)
[2017-06-05] MEDS: Furosemide 40 MG TAB PO SCH (10:07)
[2017-06-05] MEDS: Aspirin 325 mg Enteric Coated Tablet PO SCH (10:07)
[2017-06-05] MEDS: Cefdinir 300 MG CAP PER TUBE SCH (10:08)
[2017-06-05] MEDS: Multivit, Therapeutic 1 TAB PO SCH (10:08)
[2017-06-05] MEDS: Famotidine 20 MG TAB PER TUBE SCH (10:08)
[2017-06-05] MEDS: Ubidecarenone 50 MG CAP PO SCH (10:16)
--- NOTE | 2017-06-05 13:31 | PDOC.PN ---
- Subjective Encounter Start Date: 06/05/17 Encounter Start Time: 08:15 Subjective: is awake, not in distress - Objective Resuscitation Status: Resuscitation Status DNR:Do Not Resuscitate MAR Reviewed: Yes Vital Signs & Weight: Vital Signs (12 hours) Temp Pulse Resp BP Pulse Ox 06/05/17 11:34 97.6 F 65 16 137/80 92 L 06/05/17 08:00 97.2 F L 84 16 92 L 06/05/17 07:58 97.2 F L 84 16 122/67 91 L Weight Admit Weight 113 lb Weight 127 lb 4.8 oz Most Recent Monitor Data Heart Rate from ECG 73 NIBP 120/61 NIBP BP-Mean 78 Respiration from ECG 16 SpO2 100 I&O: 06/04/17 06/05/17 06/06/17 06:59 06:59 06:59 Intake Total 700 1910 Output Total 2100 1275 Balance -1400 635 Result Diagrams: 06/02/17 05:24 06/02/17 05:24 Additional Labs: Accuchecks 06/05/17 06/05/17 06/04/17 11:27 05:15 20:16 POC Glucose 228 H 192 H 106 06/04/17 16:13 POC Glucose 94 Phys Exam - Physical Examination HEENT: PERRLA, moist MMs Neck: no JVD, supple Respiratory: no wheezing, no rales Cardiovascular: RRR, no significant murmur Gastrointestinal: soft, no distention, positive bowel sounds peg+ Musculoskeletal: no edema, pulses present Neurological: non-focal, moves all 4 limbs Psychiatric: A&O x 3 Dx/Plan (1) Aspiration pneumonia Code(s): J69.0 - PNEUMONITIS DUE TO INHALATION OF FOOD AND VOMIT Status: Acute Qualifiers: Aspiration pneumonia type: due to gastric secretions Laterality: bilateral (2) Dysphagia, oropharyngeal Code(s): R13.12 - DYSPHAGIA, OROPHARYNGEAL PHASE Status: Acute Comment: s/p peg 06/03/17 (3) Thrombocytopenia Code(s): D69.6 - THROMBOCYTOPENIA, UNSPECIFIED Status: Resolved (4) Anemia, normocytic normochromic Code(s): D64.9 - ANEMIA, UNSPECIFIED Status: Chronic (5) DM2 (diabetes mellitus, type 2) Status: Chronic Qualifiers: Diabetes mellitus complication status: with hypoglycemia Diabetes mellitus half-way insulin use: without half-way use Comment: (6) HLD (hyperlipidemia) Code(s): E78.5 - HYPERLIPIDEMIA, UNSPECIFIED Status: Chronic Qualifiers: Hyperlipidemia type: unspecified Qualified Code(s): E78.5 - Hyperlipidemia , unspecified (7) HTN (hypertension) Code(s): I10 - ESSENTIAL (PRIMARY) HYPERTENSION Status: Chronic Qualifiers: Hypertension type: essential hypertension Qualified Code(s): I10 - Essential (primary) hypertension (8) Acute respiratory failure Code(s): J96.00 - ACUTE RESPIRATORY FAILURE, UNSP W HYPOXIA OR HYPERCAPNIA Status: Resolved Comment: (9) Physical deconditioning Code(s): R53.81 - OTHER MALAISE Status: Acute - Plan awaiting placement, swing bed -: PT to mobilize as tolerated -: is on omnicef, nebs -: tolerating peg feeding -: has deconditioning, was amb prior to hospitalization * . Review of Systems - Medications/Allergies Allergies/Adverse Reactions: Allergies Allergy/AdvReac Type Severity Reaction Status Date / Time No Known Drug Allergies Allergy Verified 05/20/17 21:30 Medications: Current Medications Albuterol/Ipratropium (Duoneb) 3 ml NEB [id number] PRN PRN Reason: . Aspirin (Ecotrin) 325 mg PO DAILY REPLACED BY [facility] Last Admin: 06/05/17 10:07 Dose: 325 mg Atorvastatin Calcium (Lipitor) 10 mg PO HS REPLACED BY [facility] Last Admin: 06/04/17 21:57 Dose: 10 mg Cefdinir (Omnicef) 600 mg PER TUBE DAILY REPLACED BY [facility] Last Admin: 06/05/17 10:08 Dose: 600 mg Coenzyme Q10 (Coenzyme Q10) 100 mg PO DAILY REPLACED BY [facility] Last Admin: 06/05/17 10:16 Dose: 100 mg Dextrose/Water (Dextrose 50%) 25 gm IVP PRN PRN PRN Reason: HYPOGLYCEMIA PROTOCOL Last Admin: 06/02/17 04:33 Dose: 25 gm Enoxaparin Sodium (Lovenox) 40 mg SC 0900 REPLACED BY [facility] Last Admin: 06/05/17 10:06 Dose: 40 mg Famotidine (Pepcid) 20 mg PER TUBE DAILY REPLACED BY [facility] Last Admin: 06/05/17 10:08 Dose: 20 mg Furosemide (Lasix) 40 mg PO DAILY-AC REPLACED BY [facility] Last Admin: 06/05/17 10:07 Dose: 40 mg Glucagon (Glucagon) 1 mg IM PRN PRN PRN Reason: HYPOGLYCEMIA PROTOCOL Dextrose/Water (D5w) 1,000 mls @ 0 mls/hr IV INF PRN; As Directed PRN Reason: HYPOGLYCEMIA PROTOCOL Last Admin: 06/02/17 06:43 Dose: 1,000 mls Insulin Human Lispro (Humalog) 0 units SC .MODERATE SLIDING SC PRN; Protocol PRN Reason: MODERATE SLIDING SCALE Last Admin: 06/04/17 12:56 Dose: 6 unit Multivitamins (Theragran) 1 tab PO DAILY [facility] Last Admin: 06/05/17 10:08 Dose: 1 tab Scopolamine (Transderm Scop) 1.5 mg TD Q3D [facility] Last Admin: 06/03/17 09:08 Dose: 1.5 mg Sodium Chloride (Flush - Normal Saline) 10 ml IVF Q12HR [facility] Last Admin: 06/05/17 10:09 Dose: 10 ml Sodium Chloride (Flush - Normal Saline) 10 ml IVF PRN PRN PRN Reason: Saline Flush
[2017-06-05] MEDS: HumaLOG 300 UNITS/3 ML VIAL SC PRN (13:48)
[2017-06-05] MEDS: Atorvastatin Calcium 10 MG TAB PO SCH (21:48)
[2017-06-06] MEDS: Ubidecarenone 50 MG CAP PO SCH (08:35)
[2017-06-06] MEDS: Famotidine 20 MG TAB PER TUBE SCH (08:35)
[2017-06-06] MEDS: Furosemide 40 MG TAB PO SCH (08:35)
[2017-06-06] MEDS: Cefdinir 300 MG CAP PER TUBE SCH (08:35)
[2017-06-06] MEDS: Multivit, Therapeutic 1 TAB PO SCH (08:35)
[2017-06-06] MEDS: Scopolamine 1.5 mg/72 hour Patch TD SCH (08:36)
--- NOTE | 2017-06-06 11:00 | PDOC.PN ---
- Subjective Encounter Start Date: 06/06/17 Encounter Start Time: 08:20 -: old records requested/rev pt has bleeding around peg tube site, no fever - Objective Resuscitation Status: Resuscitation Status DNR:Do Not Resuscitate MAR Reviewed: Yes Vital Signs & Weight: Vital Signs (12 hours) Temp Pulse Resp BP Pulse Ox 06/06/17 08:00 97.5 F L 70 18 06/06/17 07:22 97.5 F L 70 18 125/56 L 94 L 06/06/17 02:35 95 Weight Admit Weight 113 lb Weight 127 lb 4.8 oz Most Recent Monitor Data Heart Rate from ECG 73 NIBP 120/61 NIBP BP-Mean 78 Respiration from ECG 16 SpO2 100 I&O: 06/05/17 06/06/17 06/07/17 06:59 06:59 06:59 Intake Total 1910 1750 Output Total 1275 1550 Balance 635 200 Result Diagrams: 06/02/17 05:24 06/02/17 05:24 Additional Labs: Accuchecks 06/06/17 06/05/17 06/05/17 05:22 20:09 16:12 POC Glucose 224 H 190 H 154 H 06/05/17 11:27 POC Glucose 228 H Phys Exam - Physical Examination Constitutional: NAD HEENT: PERRLA, moist MMs, sclera anicteric Neck: no JVD, supple Respiratory: no wheezing, no rales, no rhonchi Cardiovascular: RRR, no significant murmur, no rub Gastrointestinal: soft, non-tender, no distention, positive bowel sounds peg+ Musculoskeletal: no edema, pulses present Neurological: non-focal, normal sensation Lymphatic: no nodes Psychiatric: normal affect Skin: no rash, normal turgor Dx/Plan (1) Acute worsening of stage 3 chronic kidney disease Code(s): N18.3 - CHRONIC KIDNEY DISEASE, STAGE 3 (MODERATE) Status: Acute (2) Community acquired bacterial pneumonia Code(s): J15.9 - UNSPECIFIED BACTERIAL PNEUMONIA Status: Acute (3) Dysphagia, oropharyngeal Code(s): R13.12 - DYSPHAGIA, OROPHARYNGEAL PHASE Status: Acute Comment: s/p peg 06/03/17 (4) Thrombocytopenia Code(s): D69.6 - THROMBOCYTOPENIA, UNSPECIFIED Status: Resolved (5) Anemia, normocytic normochromic Code(s): D64.9 - ANEMIA, UNSPECIFIED Status: Chronic (6) DM2 (diabetes mellitus, type 2) Status: Chronic Qualifiers: Diabetes mellitus complication status: with hypoglycemia Diabetes mellitus manager packaging insulin use: without manager packaging use Comment: (7) HLD (hyperlipidemia) Code(s): E78.5 - HYPERLIPIDEMIA, UNSPECIFIED Status: Chronic Qualifiers: Hyperlipidemia type: unspecified Qualified Code(s): E78.5 - Hyperlipidemia , unspecified (8) HTN (hypertension) Code(s): I10 - ESSENTIAL (PRIMARY) HYPERTENSION Status: Chronic Qualifiers: Hypertension type: essential hypertension Qualified Code(s): I10 - Essential (primary) hypertension (9) Acute respiratory failure Code(s): J96.00 - ACUTE RESPIRATORY FAILURE, UNSP W HYPOXIA OR HYPERCAPNIA Status: Resolved Comment: (10) Septic shock Code(s): A41.9 - SEPSIS, UNSPECIFIED ORGANISM; R65.21 - SEVERE SEPSIS WITH SEPTIC SHOCK Status: Resolved - Plan cont current plan of care, continue antibiotics * medication reviewed as below * symptomatic treatment * needs dressing around peg * if recurrent bleeding, then will need gi evaluation * needs placement * await approval. Review of Systems - Review of Systems Other: unable to review as pt is demented - Medications/Allergies Allergies/Adverse Reactions: Allergies Allergy/AdvReac Type Severity Reaction Status Date / Time No Known Drug Allergies Allergy Verified 05/20/17 21:30 Medications: Current Medications Albuterol/Ipratropium (Duoneb) 3 ml NEB [id number] PRN PRN Reason: . Aspirin (Ecotrin) 325 mg PO DAILY [facility] Last Admin: 06/05/17 10:07 Dose: 325 mg Atorvastatin Calcium (Lipitor) 10 mg PO HS [facility] Last Admin: 06/05/17 21:48 Dose: 10 mg Cefdinir (Omnicef) 600 mg PER TUBE DAILY [facility] Last Admin: 06/06/17 08:35 Dose: 600 mg Coenzyme Q10 (Coenzyme Q10) 100 mg PO DAILY [facility] Last Admin: 06/06/17 08:35 Dose: 100 mg Dextrose/Water (Dextrose 50%) 25 gm IVP PRN PRN PRN Reason: HYPOGLYCEMIA PROTOCOL Last Admin: 06/02/17 04:33 Dose: 25 gm Enoxaparin Sodium (Lovenox) 40 mg SC 0900 [facility] Last Admin: 06/05/17 10:06 Dose: 40 mg Famotidine (Pepcid) 20 mg PER TUBE DAILY [facility] Last Admin: 06/06/17 08:35 Dose: 20 mg Furosemide (Lasix) 40 mg PO DAILY-AC [facility] Last Admin: 06/06/17 08:35 Dose: 40 mg Glucagon (Glucagon) 1 mg IM PRN PRN PRN Reason: HYPOGLYCEMIA PROTOCOL Dextrose/Water (D5w) 1,000 mls @ 0 mls/hr IV INF PRN; As Directed PRN Reason: HYPOGLYCEMIA PROTOCOL Last Admin: 06/02/17 06:43 Dose: 1,000 mls Insulin Human Lispro (Humalog) 0 units SC .MODERATE SLIDING SC PRN; Protocol PRN Reason: MODERATE SLIDING SCALE Last Admin: 06/05/17 13:48 Dose: 4 unit Multivitamins (Theragran) 1 tab PO DAILY [facility] Last Admin: 06/06/17 08:35 Dose: 1 tab Scopolamine (Transderm Scop) 1.5 mg TD Q3D [facility] Last Admin: 06/06/17 08:36 Dose: 1.5 mg Sodium Chloride (Flush - Normal Saline) 10 ml IVF Q12HR [facility] Last Admin: 06/06/17 08:35 Dose: Not Given Sodium Chloride (Flush - Normal Saline) 10 ml IVF PRN PRN PRN Reason: Saline Flush
[2017-06-06] MEDS: Aspirin 325 mg Enteric Coated Tablet PO SCH (12:43)
[2017-06-06] MEDS: Enoxaparin Sodium 40 MG/0.4 ML SYRINGE SC SCH (12:43)
[2017-06-06] MEDS: HumaLOG 300 UNITS/3 ML VIAL SC PRN (12:43)
[2017-06-06] MEDS: ALPRAZolam 0.25 MG TAB PER TUBE PRN ×2 (14:03→22:49)
[2017-06-06] MEDS ORDERED: Sodium Chloride 0.65% Nasal 44 ML BOT EA NARE PRN (15:54)
[2017-06-06] MEDS ORDERED: Eucerin (Mineral Oil/Petrolatum,White) 30 gm Jar TOP PRN (15:54)
[2017-06-06] MEDS ORDERED: Loratadine 10 MG TAB PER TUBE PRN (15:54)
[2017-06-06] MEDS ORDERED: Milk Of Magnesia 30 ML UDCUP PER TUBE PRN (15:54)
[2017-06-06] MEDS ORDERED: Chloraseptic Spray 180 ml Bottle PO PRN (15:54)
[2017-06-06] MEDS ORDERED: Mag-Al 1200 mg/1200 mg/30 ML UDCUP PER TUBE PRN (15:54)
[2017-06-06] MEDS ORDERED: Ondansetron HCl/PF 4 MG/2 ML Vial IVP PRN (15:54)
[2017-06-06] MEDS ORDERED: Diabetic Tussin 200 MG/10 ML UDCUP PER TUBE PRN (15:54)
[2017-06-06] MEDS ORDERED: Acetaminophen 325 MG TAB PER TUBE PRN (15:54)
[2017-06-06] MEDS ORDERED: hydrALAZINE 20 MG/ML VIAL SLOW IVP PRN (15:54)
[2017-06-06] MEDS ORDERED: Artificial Tears 18 DROP/0.9 ML EA EYE PRN (15:54)
[2017-06-06] MEDS ORDERED: Loperamide HCl 2 MG CAP PO PRN (15:54)
[2017-06-06] MEDS ORDERED: Senokot 8.6 MG TAB PER TUBE PRN (15:54)
[2017-06-06] MEDS ORDERED: Ondansetron ODT 4 MG TAB PER TUBE PRN (15:54)
[2017-06-06] MEDS: Atorvastatin Calcium 10 MG TAB PO SCH (20:49)
[2017-06-07 05:44] LABS: Hematocrit 23.2 % (36.0-47.0); Mean Platelet Volume 11.5 fL (7.4-10.4); White Blood Cell (WBC) Count 3.7 thou/uL (4.8-10.8)
[2017-06-07 05:55] LABS: Anion Gap 14 mmol/L (10-20); BUN (Urea Nitrogen) 28 mg/dL (9.8-20.1); Calc. Creatinine Clearance 38 mL/min (70-130); Calcium 8.6 mg/dL (7.8-10.44); Carbon Dioxide 29 mmol/L (23-31); Chloride 96 mmol/L (98-107); Estimated GFR-MDRD 58
[2017-06-07 06:17] LABS: #Lymphocytes 0.7 thou/uL (1.20-3.40); #Monocytes 0.3 thou/uL (0.11-0.59); #Neutrophils 2.6 thou/uL (1.40-6.50); %Basophils 0.6 % (0.0-1.0); %Eosinophils 0.7 % (0.0-10.0); %Lymphocytes 19.9 % (21.0-51.0); %Monocytes 7.6 % (0.0-10.0); Anisocytosis SLIGHT = 6-15 cells (100X) (0-5/hpf)
[2017-06-07] MEDS: HumaLOG 300 UNITS/3 ML VIAL SC PRN ×2 (06:58→18:02)
[2017-06-07] MEDS: Famotidine 20 MG TAB PER TUBE SCH (08:21)
[2017-06-07] MEDS: Multivit, Therapeutic 1 TAB PO SCH (08:21)
[2017-06-07] MEDS: Furosemide 40 MG TAB PO SCH (08:21)
[2017-06-07] MEDS: Cefdinir 300 MG CAP PER TUBE SCH (08:21)
[2017-06-07] MEDS: Ubidecarenone 50 MG CAP PO SCH (08:21)
[2017-06-07] MEDS: ALPRAZolam 0.25 MG TAB PER TUBE PRN ×3 (08:24→18:02)
--- NOTE | 2017-06-07 11:25 | PDOC.PN ---
- Subjective Encounter Start Date: 06/07/17 Encounter Start Time: 08:35 this morning pt has hypothermia, pt is anxious, mild oozing of blood around peg - Objective Resuscitation Status: Resuscitation Status DNR:Do Not Resuscitate MAR Reviewed: Yes Vital Signs & Weight: Vital Signs (12 hours) Temp Pulse Resp BP BP Pulse Ox 06/07/17 08:00 97.5 F L 88 18 123/66 96 06/07/17 04:35 95.9 F L 06/07/17 04:00 61 16 136/67 97 06/07/17 00:05 94.0 F L Weight Admit Weight 113 lb Weight 127 lb 4.8 oz Most Recent Monitor Data Heart Rate from ECG 73 NIBP 120/61 NIBP BP-Mean 78 Respiration from ECG 16 SpO2 100 I&O: 06/06/17 06/07/17 06/08/17 06:59 06:59 06:59 Intake Total 1750 1755 880 Output Total 1550 2900 700 Balance 200 -1145 180 Result Diagrams: 06/07/17 04:05 06/07/17 04:05 Additional Labs: Accuchecks 06/07/17 06/06/17 06/06/17 04:16 19:48 17:54 POC Glucose 257 H 195 H 121 H 06/06/17 11:36 POC Glucose 251 H Phys Exam - Physical Examination Constitutional: NAD HEENT: PERRLA, moist MMs, sclera anicteric Neck: no JVD, supple Respiratory: no wheezing, no rales, no rhonchi Cardiovascular: RRR, no significant murmur, no rub Gastrointestinal: soft, non-tender, no distention, positive bowel sounds peg+ Musculoskeletal: no edema, pulses present Neurological: non-focal Lymphatic: no nodes Psychiatric: normal affect Skin: no rash, normal turgor Dx/Plan (1) Acute worsening of stage 3 chronic kidney disease Code(s): N18.3 - CHRONIC KIDNEY DISEASE, STAGE 3 (MODERATE) Status: Acute (2) Dysphagia, oropharyngeal Code(s): R13.12 - DYSPHAGIA, OROPHARYNGEAL PHASE Status: Acute Comment: s/p peg 06/03/17 (3) Thrombocytopenia Code(s): D69.6 - THROMBOCYTOPENIA, UNSPECIFIED Status: Resolved (4) Anemia, normocytic normochromic Code(s): D64.9 - ANEMIA, UNSPECIFIED Status: Chronic (5) DM2 (diabetes mellitus, type 2) Status: Chronic Qualifiers: Diabetes mellitus complication status: with hypoglycemia Diabetes mellitus lobsterman insulin use: without lobsterman use Comment: (6) HLD (hyperlipidemia) Code(s): E78.5 - HYPERLIPIDEMIA, UNSPECIFIED Status: Chronic Qualifiers: Hyperlipidemia type: unspecified Qualified Code(s): E78.5 - Hyperlipidemia , unspecified (7) HTN (hypertension) Code(s): I10 - ESSENTIAL (PRIMARY) HYPERTENSION Status: Chronic Qualifiers: Hypertension type: essential hypertension Qualified Code(s): I10 - Essential (primary) hypertension (8) Acute respiratory failure Code(s): J96.00 - ACUTE RESPIRATORY FAILURE, UNSP W HYPOXIA OR HYPERCAPNIA Status: Resolved Comment: (9) Septic shock Code(s): A41.9 - SEPSIS, UNSPECIFIED ORGANISM; R65.21 - SEVERE SEPSIS WITH SEPTIC SHOCK Status: Resolved (10) Aspiration pneumonia Code(s): J69.0 - PNEUMONITIS DUE TO INHALATION OF FOOD AND VOMIT Status: Resolved Qualifiers: Aspiration pneumonia type: due to gastric secretions Laterality: bilateral (11) Physical deconditioning Code(s): R53.81 - OTHER MALAISE Status: Acute - Plan cont current plan of care, social media project manager * will add xanax for anxiety * now recurrent hypothermia is concerning * will monitor * tube feeding * medication reviewed as below * symptomatic treatment * consider lyn removal. Review of Systems - Review of Systems Other: not reliable due to dementia - Medications/Allergies Allergies/Adverse Reactions: Allergies Allergy/AdvReac Type Severity Reaction Status Date / Time No Known Drug Allergies Allergy Verified 05/20/17 21:30 Medications: Current Medications Acetaminophen (Tylenol) 650 mg PER TUBE Q4H PRN PRN Reason: Headache/Fever or Mild Pain Al Hydroxide/Mg Hydroxide (Maalox) 15 ml PER TUBE Q4H PRN PRN Reason: Heartburn or Indigestion Albuterol/Ipratropium (Duoneb) 3 ml NEB [id number] PRN PRN Reason: . Alprazolam (Xanax) 0.125 mg PER TUBE TIDPRN PRN PRN Reason: Anxiety Last Admin: 06/07/17 08:24 Dose: 0.125 mg Alprazolam (Xanax) 0.25 mg PER TUBE Q6H PRN PRN Reason: Anxiety Artificial Tears (Tears Naturale) 0 drop EA EYE PRN PRN PRN Reason: Dry Eyes Aspirin (Aspirin Chewable) 81 mg PER TUBE DAILY [facility] Last Admin: 06/07/17 08:21 Dose: 81 mg Atorvastatin Calcium (Lipitor) 10 mg PO HS [facility] Last Admin: 06/06/17 20:49 Dose: 10 mg Cefdinir (Omnicef) 600 mg PER TUBE DAILY [facility] Last Admin: 06/07/17 08:21 Dose: 600 mg Coenzyme Q10 (Coenzyme Q10) 100 mg PO DAILY [facility] Last Admin: 06/07/17 08:21 Dose: 100 mg Dextrose/Water (Dextrose 50%) 25 gm IVP PRN PRN PRN Reason: HYPOGLYCEMIA PROTOCOL Last Admin: 06/02/17 04:33 Dose: 25 gm Famotidine (Pepcid) 20 mg PER TUBE DAILY [facility] Last Admin: 06/07/17 08:21 Dose: 20 mg Furosemide (Lasix) 40 mg PO DAILY[facility] Last Admin: 06/07/17 08:21 Dose: 40 mg Glucagon (Glucagon) 1 mg IM PRN PRN PRN Reason: HYPOGLYCEMIA PROTOCOL Guaifenesin (Robitussin Sf) 200 mg PER TUBE Q4H PRN PRN Reason: Cough Hydralazine HCl (Apresoline) 10 mg SLOW IVP Q4H PRN PRN Reason: Systolic BP > 180 Dextrose/Water (D5w) 1,000 mls @ 0 mls/hr IV INF PRN; As Directed PRN Reason: HYPOGLYCEMIA PROTOCOL Last Admin: 06/02/17 06:43 Dose: 1,000 mls Insulin Human Lispro (Humalog) 0 units SC .MODERATE SLIDING SC PRN; Protocol PRN Reason: MODERATE SLIDING SCALE Last Admin: 06/07/17 06:58 Dose: 4 unit Loperamide HCl (Imodium) 2 mg PO PRN PRN PRN Reason: Diarrhea/Loose Stools Loratadine (Claritin) 10 mg PER TUBE DAILYPRN PRN PRN Reason: Sinus Symptoms Magnesium Hydroxide (Milk Of Magnesium) 30 ml PER TUBE DAILYPRN PRN PRN Reason: Constipation Mineral Oil/White Petrolatum (Eucerin Cream) 0 gm TOP BIDPRN PRN PRN Reason: Dry Skin Multivitamins (Theragran) 1 tab PO DAILY [facility] Last Admin: 06/07/17 08:21 Dose: 1 tab Ondansetron HCl (Zofran Odt) 4 mg PER TUBE Q6H PRN PRN Reason: Nausea/Vomiting Ondansetron HCl (Zofran) 4 mg IVP Q6H PRN PRN Reason: Nausea/Vomiting Phenol (Chloraseptic [place] 180 Ml Bot) 0 ml PO PRN PRN PRN Reason: Sore Throat Scopolamine (Transderm Scop) 1.5 mg TD Q3D [facility] Last Admin: 06/06/17 08:36 Dose: 1.5 mg Senna (Senokot) 2 tab PER TUBE HSPRN PRN PRN Reason: Constipation Sodium Chloride (Flush - Normal Saline) 10 ml IVF Q12HR [facility] Last Admin: 06/07/17 08:21 Dose: Not Given Sodium Chloride (Flush - Normal Saline) 10 ml IVF PRN PRN PRN Reason: Saline Flush Sodium Chloride ([place] Nasal [place] 0.65%) 0 ml EA NARE QIDPRN PRN PRN Reason: Nasal Congestion
[2017-06-07] MEDS: Atorvastatin Calcium 10 MG TAB PO SCH (20:22)
[2017-06-08] MEDS: HumaLOG 300 UNITS/3 ML VIAL SC PRN ×2 (06:16→12:01)
[2017-06-08] MEDS: Ubidecarenone 50 MG CAP PO SCH (08:14)
[2017-06-08] MEDS: Cefdinir 300 MG CAP PER TUBE SCH (08:14)
[2017-06-08] MEDS: Multivit, Therapeutic 1 TAB PO SCH (08:14)
[2017-06-08] MEDS: Furosemide 40 MG TAB PO SCH (08:15)
[2017-06-08] MEDS: Famotidine 20 MG TAB PER TUBE SCH (08:15)
--- NOTE | 2017-06-08 11:02 | PDOC.PN ---
- Subjective Encounter Start Date: 06/08/17 Encounter Start Time: 08:45 Patient seen and examined. No new complaints. No overnight events - Objective Resuscitation Status: Resuscitation Status DNR:Do Not Resuscitate MAR Reviewed: Yes Vital Signs & Weight: Vital Signs (12 hours) Temp Pulse Resp BP Pulse Ox 06/08/17 08:00 97.5 F L 72 16 145/76 H 98 06/08/17 00:35 97 06/08/17 00:00 98.0 F Weight Admit Weight 113 lb Weight 127 lb 4.8 oz Most Recent Monitor Data Heart Rate from ECG 73 NIBP 120/61 NIBP BP-Mean 78 Respiration from ECG 16 SpO2 100 I&O: 06/07/17 06/08/17 06/09/17 06:59 06:59 06:59 Intake Total 1755 3520 Output Total 2900 704 Balance -1145 2816 Result Diagrams: 06/07/17 04:05 06/07/17 04:05 Additional Labs: Accuchecks 06/08/17 06/07/17 06/07/17 05:43 19:19 18:01 POC Glucose 233 H 248 H 218 H 06/07/17 11:19 POC Glucose 119 H Phys Exam - Physical Examination Constitutional: NAD HEENT: PERRLA, moist MMs, sclera anicteric Neck: no JVD, supple Respiratory: no wheezing, no rales, no rhonchi Cardiovascular: RRR, no significant murmur, no rub Gastrointestinal: soft, non-tender, no distention, positive bowel sounds peg+ Musculoskeletal: no edema, pulses present Neurological: moves all 4 limbs Lymphatic: no nodes Psychiatric: normal affect Skin: no rash, normal turgor Dx/Plan (1) Acute worsening of stage 3 chronic kidney disease Code(s): N18.3 - CHRONIC KIDNEY DISEASE, STAGE 3 (MODERATE) Status: Acute (2) Dysphagia, oropharyngeal Code(s): R13.12 - DYSPHAGIA, OROPHARYNGEAL PHASE Status: Acute Comment: s/p peg 06/03/17 (3) Thrombocytopenia Code(s): D69.6 - THROMBOCYTOPENIA, UNSPECIFIED Status: Resolved (4) Anemia, normocytic normochromic Code(s): D64.9 - ANEMIA, UNSPECIFIED Status: Chronic (5) DM2 (diabetes mellitus, type 2) Status: Chronic Qualifiers: Diabetes mellitus complication status: with hypoglycemia Diabetes mellitus exterminator termite insulin use: without correction use Comment: (6) HLD (hyperlipidemia) Code(s): E78.5 - HYPERLIPIDEMIA, UNSPECIFIED Status: Chronic Qualifiers: Hyperlipidemia type: unspecified Qualified Code(s): E78.5 - Hyperlipidemia , unspecified (7) HTN (hypertension) Code(s): I10 - ESSENTIAL (PRIMARY) HYPERTENSION Status: Chronic Qualifiers: Hypertension type: essential hypertension Qualified Code(s): I10 - Essential (primary) hypertension (8) Acute respiratory failure Code(s): J96.00 - ACUTE RESPIRATORY FAILURE, UNSP W HYPOXIA OR HYPERCAPNIA Status: Resolved Comment: (9) Septic shock Code(s): A41.9 - SEPSIS, UNSPECIFIED ORGANISM; R65.21 - SEVERE SEPSIS WITH SEPTIC SHOCK Status: Resolved (10) Aspiration pneumonia Code(s): J69.0 - PNEUMONITIS DUE TO INHALATION OF FOOD AND VOMIT Status: Resolved Qualifiers: Aspiration pneumonia type: due to gastric secretions Laterality: bilateral (11) Physical deconditioning Code(s): R53.81 - OTHER MALAISE Status: Acute (12) Hypothermia Code(s): T68.XXXA - HYPOTHERMIA, INITIAL ENCOUNTER Status: Acute - Plan cont current plan of care, continue antibiotics, social media analyst * await insurance approval for SNU * medication reviewed as below * symptomatic treatment * monitor temperature * continue tube feeding * expecting discharge soon. Review of Systems - Review of Systems Other: not reliable due to dementia - Medications/Allergies Allergies/Adverse Reactions: Allergies Allergy/AdvReac Type Severity Reaction Status Date / Time No Known Drug Allergies Allergy Verified 05/20/17 21:30 Medications: Current Medications Acetaminophen (Tylenol) 650 mg PER TUBE Q4H PRN PRN Reason: Headache/Fever or Mild Pain Al Hydroxide/Mg Hydroxide (Maalox) 15 ml PER TUBE Q4H PRN PRN Reason: Heartburn or Indigestion Albuterol/Ipratropium (Duoneb) 3 ml NEB [id number] PRN PRN Reason: . Alprazolam (Xanax) 0.25 mg PER TUBE Q6H PRN PRN Reason: Anxiety Last Admin: 06/07/17 18:02 Dose: 0.25 mg Artificial Tears (Tears Naturale) 0 drop EA EYE PRN PRN PRN Reason: Dry Eyes Aspirin (Aspirin Chewable) 81 mg PER TUBE DAILY [facility] Last Admin: 06/08/17 08:15 Dose: 81 mg Atorvastatin Calcium (Lipitor) 10 mg PO HS [facility] Last Admin: 06/07/17 20:22 Dose: 10 mg Cefdinir (Omnicef) 600 mg PER TUBE DAILY [facility] Last Admin: 06/08/17 08:14 Dose: 600 mg Coenzyme Q10 (Coenzyme Q10) 100 mg PO DAILY [facility] Last Admin: 06/08/17 08:14 Dose: 100 mg Dextrose/Water (Dextrose 50%) 25 gm IVP PRN PRN PRN Reason: HYPOGLYCEMIA PROTOCOL Last Admin: 06/02/17 04:33 Dose: 25 gm Famotidine (Pepcid) 20 mg PER TUBE DAILY [facility] Last Admin: 06/08/17 08:15 Dose: 20 mg Furosemide (Lasix) 40 mg PO DAILY[facility] Last Admin: 06/08/17 08:15 Dose: 40 mg Glucagon (Glucagon) 1 mg IM PRN PRN PRN Reason: HYPOGLYCEMIA PROTOCOL Guaifenesin (Robitussin Sf) 200 mg PER TUBE Q4H PRN PRN Reason: Cough Hydralazine HCl (Apresoline) 10 mg SLOW IVP Q4H PRN PRN Reason: Systolic BP > 180 Dextrose/Water (D5w) 1,000 mls @ 0 mls/hr IV INF PRN; As Directed PRN Reason: HYPOGLYCEMIA PROTOCOL Last Admin: 06/02/17 06:43 Dose: 1,000 mls Insulin Human Lispro (Humalog) 0 units SC .MODERATE SLIDING SC PRN; Protocol PRN Reason: MODERATE SLIDING SCALE Last Admin: 06/08/17 06:16 Dose: 4 unit Loperamide HCl (Imodium) 2 mg PO PRN PRN PRN Reason: Diarrhea/Loose Stools Loratadine (Claritin) 10 mg PER TUBE DAILYPRN PRN PRN Reason: Sinus Symptoms Magnesium Hydroxide (Milk Of Magnesium) 30 ml PER TUBE DAILYPRN PRN PRN Reason: Constipation Mineral Oil/White Petrolatum (Eucerin Cream) 0 gm TOP BIDPRN PRN PRN Reason: Dry Skin Multivitamins (Theragran) 1 tab PO DAILY [facility] Last Admin: 06/08/17 08:14 Dose: 1 tab Ondansetron HCl (Zofran Odt) 4 mg PER TUBE Q6H PRN PRN Reason: Nausea/Vomiting Ondansetron HCl (Zofran) 4 mg IVP Q6H PRN PRN Reason: Nausea/Vomiting Phenol (Chloraseptic [place] 180 Ml Bot) 0 ml PO PRN PRN PRN Reason: Sore Throat Scopolamine (Transderm Scop) 1.5 mg TD Q3D [facility] Last Admin: 06/06/17 08:36 Dose: 1.5 mg Senna (Senokot) 2 tab PER TUBE HSPRN PRN PRN Reason: Constipation Sodium Chloride (Flush - Normal Saline) 10 ml IVF Q12HR [facility] Last Admin: 06/08/17 08:15 Dose: Not Given Sodium Chloride (Flush - Normal Saline) 10 ml IVF PRN PRN PRN Reason: Saline Flush Sodium Chloride ([place] Nasal [place] 0.65%) 0 ml EA NARE QIDPRN PRN PRN Reason: Nasal Congestion
[2017-06-08] MEDS: Atorvastatin Calcium 10 MG TAB PO SCH (20:55)
[2017-06-09] MEDS: ALPRAZolam 0.25 MG TAB PER TUBE PRN ×2 (01:29→16:19)
[2017-06-09] MEDS: HumaLOG 300 UNITS/3 ML VIAL SC PRN ×3 (04:50→17:57)
[2017-06-09] MEDS: Multivit, Therapeutic 1 TAB PO SCH (09:02)
[2017-06-09] MEDS: Cefdinir 300 MG CAP PER TUBE SCH (09:02)
[2017-06-09] MEDS: Furosemide 40 MG TAB PO SCH (09:02)
[2017-06-09] MEDS: Scopolamine 1.5 mg/72 hour Patch TD SCH (09:02)
[2017-06-09] MEDS: Famotidine 20 MG TAB PER TUBE SCH (09:02)
[2017-06-09] MEDS: Ubidecarenone 50 MG CAP PO SCH (09:03)
[2017-06-09 12:14] LABS: #Basophils 0.1 thou/uL (0.0-0.2); #Lymphocytes 0.8 thou/uL (1.20-3.40); #Monocytes 0.3 thou/uL (0.11-0.59); %Eosinophils 1.3 % (0.0-10.0); %Lymphocytes 25.6 % (21.0-51.0); %Monocytes 9.6 % (0.0-10.0); Hematocrit 23.5 % (36.0-47.0); Mean Platelet Volume 9.3 fL (7.4-10.4); Red Blood Cell (RBC) Count 2.46 mill/uL (4.20-5.40); White Blood Cell (WBC) Count 3.3 thou/uL (4.8-10.8)
[2017-06-09 12:33] LABS: Anion Gap 14 mmol/L (10-20); BUN (Urea Nitrogen) 31 mg/dL (9.8-20.1); Calc. Creatinine Clearance 38 mL/min (70-130); Carbon Dioxide 31 mmol/L (23-31); Chloride 97 mmol/L (98-107); Estimated GFR-MDRD 57
--- NOTE | 2017-06-09 13:23 | PDOC.PN ---
- Subjective Encounter Start Date: 06/09/17 Encounter Start Time: 10:30 Patient seen and examined. No overnight events - Objective Resuscitation Status: Resuscitation Status DNR:Do Not Resuscitate MAR Reviewed: Yes Vital Signs & Weight: Vital Signs (12 hours) Temp Pulse Resp BP Pulse Ox 06/09/17 08:00 97.3 F L 72 20 119/75 100 06/09/17 05:22 99 Weight Admit Weight 113 lb Weight 127 lb 4.8 oz Most Recent Monitor Data Heart Rate from ECG 73 NIBP 120/61 NIBP BP-Mean 78 Respiration from ECG 16 SpO2 100 I&O: 06/08/17 06/09/17 06/10/17 06:59 06:59 06:59 Intake Total 3520 2197 Output Total 704 Balance 2816 2197 Result Diagrams: 06/09/17 12:06 06/09/17 12:06 Additional Labs: Accuchecks 06/09/17 06/09/17 06/09/17 11:37 04:48 00:19 POC Glucose 240 H 343 H 351 H 06/08/17 18:44 POC Glucose 266 H Phys Exam - Physical Examination Constitutional: NAD HEENT: PERRLA, moist MMs, sclera anicteric Neck: no JVD, supple Respiratory: no wheezing, no rales, no rhonchi Cardiovascular: RRR, no significant murmur, no rub Gastrointestinal: soft, non-tender, no distention, positive bowel sounds PEG+ Musculoskeletal: no edema, pulses present Neurological: non-focal Lymphatic: no nodes Psychiatric: normal affect Skin: no rash, normal turgor Dx/Plan (1) Acute worsening of stage 3 chronic kidney disease Code(s): N18.3 - CHRONIC KIDNEY DISEASE, STAGE 3 (MODERATE) Status: Acute (2) Dysphagia, oropharyngeal Code(s): R13.12 - DYSPHAGIA, OROPHARYNGEAL PHASE Status: Acute Comment: s/p peg 06/03/17 (3) Thrombocytopenia Code(s): D69.6 - THROMBOCYTOPENIA, UNSPECIFIED Status: Resolved (4) Anemia, normocytic normochromic Code(s): D64.9 - ANEMIA, UNSPECIFIED Status: Chronic (5) DM2 (diabetes mellitus, type 2) Status: Chronic Qualifiers: Diabetes mellitus complication status: with hypoglycemia Diabetes mellitus [facility] insulin use: without [facility] use Comment: (6) HLD (hyperlipidemia) Code(s): E78.5 - HYPERLIPIDEMIA, UNSPECIFIED Status: Chronic Qualifiers: Hyperlipidemia type: unspecified Qualified Code(s): E78.5 - Hyperlipidemia , unspecified (7) HTN (hypertension) Code(s): I10 - ESSENTIAL (PRIMARY) HYPERTENSION Status: Chronic Qualifiers: Hypertension type: essential hypertension Qualified Code(s): I10 - Essential (primary) hypertension (8) Acute respiratory failure Code(s): J96.00 - ACUTE RESPIRATORY FAILURE, UNSP W HYPOXIA OR HYPERCAPNIA Status: Resolved Comment: (9) Septic shock Code(s): A41.9 - SEPSIS, UNSPECIFIED ORGANISM; R65.21 - SEVERE SEPSIS WITH SEPTIC SHOCK Status: Resolved (10) Aspiration pneumonia Code(s): J69.0 - PNEUMONITIS DUE TO INHALATION OF FOOD AND VOMIT Status: Resolved Qualifiers: Aspiration pneumonia type: due to gastric secretions Laterality: bilateral (11) Physical deconditioning Code(s): R53.81 - OTHER MALAISE Status: Acute (12) Hypothermia Code(s): T68.XXXA - HYPOTHERMIA, INITIAL ENCOUNTER Status: Acute - Plan cont current plan of care, continue antibiotics, bilingual social worker * pt has finished antibiotics course, so she will not need on discharge * await insurance approval for SNU * if no recurrent hypothermia, then will consider discharge tomorrow if approved for SNU * medication reviewed as below * symptomatic treatment. Review of Systems - Review of Systems Other: not reliable due to dementia - Medications/Allergies Allergies/Adverse Reactions: Allergies Allergy/AdvReac Type Severity Reaction Status Date / Time No Known Drug Allergies Allergy Verified 05/20/17 21:30 Medications: Current Medications Acetaminophen (Tylenol) 650 mg PER TUBE Q4H PRN PRN Reason: Headache/Fever or Mild Pain Al Hydroxide/Mg Hydroxide (Maalox) 15 ml PER TUBE Q4H PRN PRN Reason: Heartburn or Indigestion Albuterol/Ipratropium (Duoneb) 3 ml NEB [id number] PRN PRN Reason: . Alprazolam (Xanax) 0.25 mg PER TUBE Q6H PRN PRN Reason: Anxiety Last Admin: 06/09/17 01:29 Dose: 0.25 mg Artificial Tears (Tears Naturale) 0 drop EA EYE PRN PRN PRN Reason: Dry Eyes Aspirin (Aspirin Chewable) 81 mg PER TUBE DAILY [facility] Last Admin: 06/09/17 09:02 Dose: 81 mg Atorvastatin Calcium (Lipitor) 10 mg PO HS [facility] Last Admin: 06/08/17 20:55 Dose: 10 mg Cefdinir (Omnicef) 600 mg PER TUBE DAILY [facility] Last Admin: 06/09/17 09:02 Dose: 600 mg Coenzyme Q10 (Coenzyme Q10) 100 mg PO DAILY [facility] Last Admin: 06/09/17 09:03 Dose: 100 mg Dextrose/Water (Dextrose 50%) 25 gm IVP PRN PRN PRN Reason: HYPOGLYCEMIA PROTOCOL Last Admin: 06/02/17 04:33 Dose: 25 gm Famotidine (Pepcid) 20 mg PER TUBE DAILY [facility] Last Admin: 06/09/17 09:02 Dose: 20 mg Furosemide (Lasix) 40 mg PO DAILY[facility] Last Admin: 06/09/17 09:02 Dose: 40 mg Glucagon (Glucagon) 1 mg IM PRN PRN PRN Reason: HYPOGLYCEMIA PROTOCOL Guaifenesin (Robitussin Sf) 200 mg PER TUBE Q4H PRN PRN Reason: Cough Hydralazine HCl (Apresoline) 10 mg SLOW IVP Q4H PRN PRN Reason: Systolic BP > 180 Dextrose/Water (D5w) 1,000 mls @ 0 mls/hr IV INF PRN; As Directed PRN Reason: HYPOGLYCEMIA PROTOCOL Last Admin: 06/02/17 06:43 Dose: 1,000 mls Insulin Human Lispro (Humalog) 0 units SC .MODERATE SLIDING SC PRN; Protocol PRN Reason: MODERATE SLIDING SCALE Last Admin: 06/09/17 11:38 Dose: 4 unit Loperamide HCl (Imodium) 2 mg PO PRN PRN PRN Reason: Diarrhea/Loose Stools Loratadine (Claritin) 10 mg PER TUBE DAILYPRN PRN PRN Reason: Sinus Symptoms Magnesium Hydroxide (Milk Of Magnesium) 30 ml PER TUBE DAILYPRN PRN PRN Reason: Constipation Mineral Oil/White Petrolatum (Eucerin Cream) 0 gm TOP BIDPRN PRN PRN Reason: Dry Skin Multivitamins (Theragran) 1 tab PO DAILY [facility] Last Admin: 06/09/17 09:02 Dose: 1 tab Ondansetron HCl (Zofran Odt) 4 mg PER TUBE Q6H PRN PRN Reason: Nausea/Vomiting Ondansetron HCl (Zofran) 4 mg IVP Q6H PRN PRN Reason: Nausea/Vomiting Phenol (Chloraseptic [place] 180 Ml Bot) 0 ml PO PRN PRN PRN Reason: Sore Throat Scopolamine (Transderm Scop) 1.5 mg TD Q3D [facility] Last Admin: 06/09/17 09:02 Dose: 1.5 mg Senna (Senokot) 2 tab PER TUBE HSPRN PRN PRN Reason: Constipation Sodium Chloride (Flush - Normal Saline) 10 ml IVF Q12HR [facility] Last Admin: 06/09/17 09:03 Dose: Not Given Sodium Chloride (Flush - Normal Saline) 10 ml IVF PRN PRN PRN Reason: Saline Flush Sodium Chloride ([place] Nasal [place] 0.65%) 0 ml EA NARE QIDPRN PRN PRN Reason: Nasal Congestion
[2017-06-09] MEDS: Atorvastatin Calcium 10 MG TAB PO SCH (21:48)
[2017-06-10] MEDS: HumaLOG 300 UNITS/3 ML VIAL SC PRN ×3 (05:03→16:56)
[2017-06-10] MEDS: Cefdinir 300 MG CAP PER TUBE SCH (08:36)
[2017-06-10] MEDS: Multivit, Therapeutic 1 TAB PO SCH (08:37)
[2017-06-10] MEDS: Furosemide 40 MG TAB PO SCH (08:37)
[2017-06-10] MEDS: Famotidine 20 MG TAB PER TUBE SCH (08:38)
[2017-06-10] MEDS: Ubidecarenone 50 MG CAP PO SCH (08:42)
[2017-06-10] MEDS: ALPRAZolam 0.25 MG TAB PER TUBE PRN (11:21)
--- NOTE | 2017-06-10 11:25 | DIS ---
DATE OF ADMISSION: 05/20/2017 DATE OF DISCHARGE: 06/10/2017 PRIMARY CARE PHYSICIAN: [facility] Call Admission DISCHARGE DISPOSITION: [facility] home. PRIMARY DISCHARGE DIAGNOSES: 1. Acute on chronic kidney failure, stage 3. 2. Oropharyngeal dysphagia, status post percutaneous endoscopic gastrostomy tube placement. 3. Hypothermia, resolved. 4. Chronic physical deconditioning. 5. Acute respiratory failure, resolved. 6. Aspiration pneumonia, treated in hospital. 7. Septic shock, resolved. 8. Thrombocytopenia, resolved. SECONDARY DISCHARGE DIAGNOSES: 1. Severe protein calorie malnutrition. 2. Hypertension. 3. Dyslipidemia. 4. Diabetes type 2. 5. Normocytic normochromic anemia. 6. Chronic kidney disease, stage 3. PRIMARY PROCEDURE/OPERATION: Endotracheal intubation and mechanical ventilatory support, PEG tube p lacement, central line placement. RADIOLOGICAL INVESTIGATION: Several chest x-rays when the patient was intubated. CT brain was nega tive for any acute intracranial process. Abdomen x-ray after double tube placement. SIGNIFICANT LABORATORY DATA: WBC 3.3, hemoglobin 7.5, platelets 332. Sodium 138, potassium 4.4, BU N 31, creatinine 1.12, calcium 9.0. Urinalysis normal. Blood culture grew alpha Streptococcus. Re peat blood culture was negative. Respiratory virus panel negative. DISCHARGE MEDICATIONS: Xanax 0.25 mg per tube q.6 hourly p.r.n. at bedtime, Tylenol 650 mg per tube q.6 hourly p.r.n., Maalox 15 mL per tube q.6 h. p.r.n., amlodipine 5 mg per tube daily, aspirin 81 mg per tube daily, Lipitor 10 mg per tube daily, Pepcid 20 mg per tube b.i.d., Humalog insulin as pe r sliding scale, DuoNeb q.6 hourly p.r.n., multivitamin 1 tablet per tube daily, Zofran ODT 4 mg per tube q.6 hourly p.r.n., scopolamine patch every 3 days, Senokot 2 tablets per tube daily, thiamine 100 mg per tube daily, Coenzyme Q10 100 mg per tube daily. CONTRAINDICATIONS: None. CODE STATUS: DNR. This was discussed during this admission. INPATIENT CONSULTANTS: Dr. Sutherland was following for aspiration pneumonia. Dr. Mckinnon was consu lted for PEG tube placement. TEST RESULTS PENDING ON DISCHARGE: None. ALLERGIES: No known drug allergies. DISCHARGE PLAN: Post hospital, the patient is discharged to intermediate home. Subsequently, mounika avelar will follow up with primary care physician. HOSPITAL COURSE: A 77-year-old female who was admitted on 05/20/[address] Finn, please see his H\T\P for further details. Patient was admitted for septic shock. She was admitted in CCU. She re quired intubation. Her source of infection was aspiration pneumonia. The patient remained in ICU a nd Pulmonary was managing ventilator. The patient was kept on broad spectrum antibiotic therapy for aspiration pneumonia. Over the next couple of days, patient's overall condition was stabilized and patient was extubated. After extubation, the patient was transferred to medical floor. Since then, we were taking care of her. The patient has finished complete course of antibiotic therapy while in hospital. The patient was h aving oropharyngeal dysphagia and she was not safe for any kind of oral intake and that is why she r equired initially double tube feeding. Patient's family member took longer to make decision about PEG tube placement. Eventually they agre ed with PEG tube placement and Dr. Mckinnon did PEG tube. After that we started tube feeding and p camryn was tolerating tube feeding well. On discharge, we changed to bolus tube feeding. The patient was also stayed in hospital Little bit longer because of insurance approval. Patient also developed complications while in hospital with recurrent hypothermia that was resolved. Today, the patient is stable. She is afebrile. She does not have any further hypothermia. Family member present at bedside and plan of care discussed with them. Paper work for discharge done. Discharge medication reconciliation done. The patient is seen and e xamined at bedside today. PHYSICAL EXAMINATION: VITAL SIGNS: Currently, temperature 97.3, pulse 54, respiratory rate 18, saturation 100%, blood pre ssure 114/66, weight 127 pounds. GENERAL: The patient is alert, awake, weak. No obvious acute distress. HEAD: Normocephalic, atraumatic. LUNGS: Clear to auscultation without any rhonchi or rales. CARDIAC: S1, S2 regular without any murmur. ABDOMEN: Soft. PEG tube in place. EXTREMITIES: No edema. NEUROLOGIC: Nonfocal examination. Total time spent on discharge day 31 minutes.
[2017-06-10 15:49] VITALS: BP 138/70; TEMP 96.9
== END 2017-06-10 18:11 | DRG 871 ==
LOC: ERS 17:51 → CCU 20:00 → T4-B 05-27 09:28 → T4-A 06-03 19:23
PROVIDERS: ADMIT Internal Medicine Infectious Disease; ATTEND Internal Medicine Infectious Disease
PROC: 0BH17EZ Insertion of Endotracheal Airway into Trachea, Via Natural or Artificial Opening (ICD-10-PCS; principal; 2017-05-20)
PROC: 5A1945Z Respiratory Ventilation, 24-96 Consecutive Hours (ICD-10-PCS; 2017-05-20)
PROC: 02H633Z Insertion of Infusion Device into Right Atrium, Percutaneous Approach (ICD-10-PCS; 2017-05-20)
PROC: 0DH63UZ Insertion of Feeding Device into Stomach, Percutaneous Approach (ICD-10-PCS; 2017-06-03)
DX: A41.9 Sepsis, unspecified organism (principal); J96.01 Acute respiratory failure with hypoxia; J69.0 Pneumonitis due to inhalation of food and vomit; R65.21 Severe sepsis with septic shock; E43 Unspecified severe protein-calorie malnutrition; G93.41 Metabolic encephalopathy; N17.9 Acute kidney failure, unspecified; E87.0 Hyperosmolality and hypernatremia; K26.9 Duodenal ulcer, unspecified as acute or chronic, without hemorrhage or perforation; R64 Cachexia; E87.2 Acidosis; D69.6 Thrombocytopenia, unspecified; E11.65 Type 2 diabetes mellitus with hyperglycemia; E11.319 Type 2 diabetes mellitus with unspecified diabetic retinopathy without macular edema; E78.5 Hyperlipidemia, unspecified; I10 Essential (primary) hypertension; Z86.73 Personal history of transient ischemic attack (TIA), and cerebral infarction without residual deficits; K44.9 Diaphragmatic hernia without obstruction or gangrene; K29.70 Gastritis, unspecified, without bleeding; K25.9 Gastric ulcer, unspecified as acute or chronic, without hemorrhage or perforation; R62.7 Adult failure to thrive; D64.9 Anemia, unspecified; E11.22 Type 2 diabetes mellitus with diabetic chronic kidney disease; I12.9 Hypertensive chronic kidney disease with stage 1 through stage 4 chronic kidney disease, or unspecified chronic kidney disease; N18.3 Chronic kidney disease, stage 3 (moderate); Z66 Do not resuscitate; E88.09 Other disorders of plasma-protein metabolism, not elsewhere classified; R13.12 Dysphagia, oropharyngeal phase; Z68.20 Body mass index [BMI] 20.0-20.9, adult
CPT/HCPCS: 31500; 36415; 36416; 36556; 51702; 70450; 71010; 74018; 80048; 80053; 81003; 82533; 82553; 82805; 83605; 84443; 84484; 85025; 86480; 86850; 86900; 86901; 87040; 87086; 87149; 87633; 87798; 87899; 94003; 94640; 94760; 96361; 96365; 96368; 96375; 96376; 99292; A4216; G8978-GP-CL; G8979-GP-CJ; G8987-GO-CM; G8988-GO-CK; G8996-GN-CM; G8996-GN-CN; G8997-GN-CJ; G8997-GN-CL; G8997-GN-CM; G8997-GN-CN; J0171; J0692; J1650; J1815; J1940; J1956; J2001; J2543; J2704; J2920; J3010; J3370; J3411; J3480; J7050; J7070; J7620; S0028

== ENCOUNTER 2017-06-24 09:54 | Inpatient (IN) | payer MEDICARE, MEDICAID ==
[2017-06-24 10:28] LABS: Anion Gap 7 mmol/L (-14-95); Critical Call POC Critical Value; Lactate 1.59 mmol/L (0.50-2.20); POC Est. GFR-MDRD-African-Amer 44; POC Estimated GFR-MDRD 36; T. Carbon Dioxide 30.9 mmol/L (1.0-85.0); pH (Venous) 7.423 (7.35-7.45); vO2 Saturation-calc 87.3 % (0.0-100.0)
[2017-06-24 10:47] LABS: Hematocrit 32.4 % (36.0-47.0); Mean Platelet Volume 13.1 fL (7.4-10.4); Red Blood Cell (RBC) Count 3.34 mill/uL (4.20-5.40)
[2017-06-24] MEDS ORDERED: Dextrose 50% Abboject 50 ML SYRINGE ONE (10:54)
[2017-06-24] MEDS ORDERED: Insulin Regular 300 UNITS/3 ML VIAL ONE (10:54)
[2017-06-24] MEDS ORDERED: Calcium Chloride 1 GM/10 ML Abboject SYRINGE ONE (10:54)
[2017-06-24 11:11] LABS: Troponin I Less than 0.010 ng/mL (< 0.028)
--- NOTE | 2017-06-24 11:13 | RAD ---
CHEST 1 VIEW: Date: 06/24/17 HISTORY: Dyspnea. COMPARISON: 06/19/17. FINDINGS: Cardiac silhouette is magnified and upper limits of normal in size. Pulmonary vasculature is unremark able. Mediastinum is midline with aortic calcification. Linear atelectasis projects over the right up per lobe. Lungs are otherwise hyperinflated. IMPRESSION: 1. COPD. 2. Borderline cardiomegaly. 3. Atherosclerosis. POS: DEWEY
[2017-06-24 11:17] LABS: Band 9 % (5-11); Myelocyte 1 % (0-0); Neutrophil 46 % (42-75); Nucleated RBC 1 % (0); Polychromasia SLIGHT = 2-3 cells (100X) (0-2/hpf); Specimen Anomalies: EDTA Platelet Clumpr
[2017-06-24 11:20] LABS: ALT (SGPT) 45 U/L (8-55); AST (SGOT) 45 U/L (5-34); Alkaline Phosphatase 183 U/L (40-150); Anion Gap 17 mmol/L (10-20); BUN (Urea Nitrogen) 45 mg/dL (9.8-20.1); Bilirubin, Total 0.4 mg/dL (0.2-1.2); CK (CPK) 56 U/L (29-168); Calc. Creatinine Clearance 0 mL/min (70-130); Calcium 9.7 mg/dL (7.8-10.44); Carbon Dioxide 24 mmol/L (23-31); Chloride 103 mmol/L (98-107); Estimated GFR-MDRD 40; Globulin 3.7 g/dL (2.4-3.5); Protein, Total 7.1 g/dL (6.0-8.3)
[2017-06-24] MEDS ORDERED: Acetaminophen 325 MG TAB PO PRN (13:28)
[2017-06-24] MEDS ORDERED: Ondansetron HCl/PF 4 MG/2 ML Vial IVP PRN (13:28)
[2017-06-24] MEDS ORDERED: Acetaminophen 325 MG TAB PER TUBE PRN (13:28)
[2017-06-24] MEDS ORDERED: Senokot 8.6 MG TAB PER TUBE PRN (13:28)
[2017-06-24] MEDS ORDERED: Guaifenesin DM 100-10/5 ML UDCUP PO PRN (13:28)
[2017-06-24] MEDS: Sodium Chloride 0.9% 1,000 ML IV SCH ×2 (13:53→22:45)
[2017-06-24] MEDS: Scopolamine 1.5 mg/72 hour Patch TD SCH (13:59)
--- NOTE | 2017-06-24 14:03 | HP ---
REASON FOR ADMISSION: Hyperkalemia. HISTORY OF PRESENTING ILLNESS: Patient was sent from [facility] for persistent hyperkalemia with potassium levels of 6.9-6.8. Per patient's daughter, who is here at bedside, the patient had slept all day yesterday and was having some dry cough. She subsequently had a blood test done which showed high potassium. She had a repeat blood work which confirmed the same and was sent to the ER. Here in the ER, she has had another set of blood work done, which confirms potassium to be at 6.9. She has had 3 episodes of diarrhea from yesterday. The patient has been walking about 50 feet with a rolling walker at the skilled nursing. She is on a pureed diet, but mostly PEG feeding. She was hospitalized here and was discharged on to [facility]. She was here for aspiration pneumonia with sepsis. No complaints of palpitations or chest pain at present. No complaints of fever. Has dry cough but no expectoration. PAST MEDICAL/SURGICAL HISTORY: History of right pontine CVA with left hemiparesis, aspiration pneumonia with placement of PEG tube during her hospitalization in the early part of this month, diabetes mellitus type 2, dyslipidemia, hypertension, diabetic retinopathy with blindness, hysterectomy. FAMILY HISTORY: Multiple family members have diabetes. PERSONAL HISTORY: Does not abuse alcohol or drugs. No history of smoking. She is currently at [facility]. CURRENT MEDICATIONS: The patient is on Xanax 0.5 mg p.o. at bedtime, Norvasc 5 mg daily, aspirin 81 mg daily, atorvastatin 10 mg daily, Pepcid 20 mg twice daily, Humalog subcu 3 times daily, DuoNebs q.4 hourly p.r.n., multivitamin 1 tab once daily, scopolamine transdermal 1.5 mg patch q.72 hourly, CoQ10 100 mg daily. ALLERGIES: No known drug allergies. REVIEW OF SYSTEMS: The following complete review of systems was negative, unless otherwise mentioned in the HPI or below: Constitutional: Weight loss or gain, ability to conduct usual activities. Skin: Rash, itching. Eyes: Double vision, pain. ENT/Mouth: Nose bleeding, neck stiffness, pain, tenderness. Cardiovascular: Palpitations, dyspnea on exertion, orthopnea. Respiratory: Shortness of breath, wheezing, cough, hemoptysis, fever or night sweats. Gastrointestinal: Poor appetite, abdominal pain, heartburn, nausea, vomiting, constipation, or diarrhea. Genitourinary: Urgency, frequency, dysuria, nocturia. Musculoskeletal: Pain, swelling. Neurologic/Psychiatric: Anxiety, depression. Allergy/Immunologic: Skin rash, bleeding tendency. PHYSICAL EXAMINATION: GENERAL: The patient is a 77-year-old female who is currently not in any acute distress. VITAL SIGNS: Blood pressure 150/74, pulse 68 per minute, respiratory rate 14 per minute, temperature 96.9 degrees Fahrenheit, and saturating 95% on room air. NECK: Supple, no elevated JVD. EYES: Extraocular muscles intact. Pupils reacting to light. ORAL CAVITY: Mucous membranes are moist. No exudates or congestion. CARDIOVASCULAR SYSTEM: S1, S2 heard. Regular rhythm. RESPIRATORY SYSTEM: Air entry 1+ bilaterally. No rales or rhonchi. ABDOMEN: Soft, bowel sounds heard. There is a PEG tube in place. No rigidity or guarding. EXTREMITIES: No peripheral edema or calf tenderness. VASCULAR SYSTEM: Peripheral pulses 1+ bilateral. No ischemic ulcerations or gangrene. CENTRAL NERVOUS SYSTEM: Patient has left hemiparesis, but freely moves right upper extremity. No new focal deficits seen. Patient is blind and has a bit of hard of hearing. PSYCHIATRIC SYSTEM: The patient's mood is euthymic. No hallucinations or delusions. IMAGING AND LABORATORY DATA: EKG done shows sinus rhythm at 68 beats per minute. There is tall T waves seen in lateral leads, V4-V6. White count of 3, hemoglobin and hematocrit 10 and 32, platelet count 137, MCV is 97 with 46% neutrophils. Sodium 137, potassium 6.9, chloride 103, serum bicarbonate 24, BUN 45, creatinine 1.5, glucose 202, AST/ALT 45, alkaline phosphatase 183, CK- MB is 9.3, troponin I less than 0.010, CK level was 56, albumin is 3.4. Chest x -ray done shows borderline cardiomegaly, otherwise no acute infiltrate. CLINICAL IMPRESSION AND PLAN: The patient will be admitted to telemetry for persistent hyperkalemia. Likely this is due to dehydration and we will gently hydrate her. She has received hyperkalemia cocktail including 10 units of insulin IV push with calcium chloride 1 gram IV given in the ER. We will give one dose of Kayexalate 30 grams now. I have consulted Dr. Garcia for help with hyperkalemia. She also has mild acute kidney injury on top of her chronic kidney disease stage 2. We will continue her home medication including aspirin , Lipitor, Norvasc, Xanax at bedtime, DuoNeb p.r.n., and scopolamine patch. We will continue to closely monitor her on telemetry. She will be on normal saline at 100 mL per hour for a total of 2 liters. We will get metabolic panel every 8 hours to see the status of her potassium. Her rhythm will be closely monitored on telemetry. ABBEY
[2017-06-24 14:22] LABS: Anion Gap 11 mmol/L (10-20); BUN (Urea Nitrogen) 44 mg/dL (9.8-20.1); Calc. Creatinine Clearance 23 mL/min (70-130); Calcium 11.4 mg/dL (7.8-10.44); Carbon Dioxide 28 mmol/L (23-31); Chloride 106 mmol/L (98-107); Estimated GFR-MDRD 42
[2017-06-24] MEDS ORDERED: FLU VACC TS2017-18 (>65YR) 0.5 ML SYRINGE IM ONE (16:00)
[2017-06-24 18:42] LABS: Anion Gap 14 mmol/L (10-20); BUN (Urea Nitrogen) 41 mg/dL (9.8-20.1); Calc. Creatinine Clearance 22 mL/min (70-130); Calcium 10.6 mg/dL (7.8-10.44); Carbon Dioxide 25 mmol/L (23-31); Chloride 105 mmol/L (98-107); Estimated GFR-MDRD 40
[2017-06-24 21:50] LABS: Anion Gap 13 mmol/L (10-20); BUN (Urea Nitrogen) 41 mg/dL (9.8-20.1); Calc. Creatinine Clearance 23 mL/min (70-130); Calcium 10.3 mg/dL (7.8-10.44); Carbon Dioxide 26 mmol/L (23-31); Chloride 106 mmol/L (98-107); Estimated GFR-MDRD 41
[2017-06-24] MEDS: ALPRAZolam 0.5 MG TAB PER TUBE SCH (22:45)
[2017-06-24] MEDS: Docusate 100 MG CAP PO SCH (22:45)
[2017-06-24] MEDS: Famotidine 20 MG TAB PO SCH (22:45)
[2017-06-24] MEDS: Atorvastatin Calcium 10 MG TAB PER TUBE SCH (22:45)
[2017-06-25] MEDS ORDERED: Furosemide 40 MG/4 ML VIAL SLOW IVP SCH (00:45)
--- NOTE | 2017-06-25 01:36 | CON ---
DATE OF CONSULTATION: 06/24/2017 CONSULTING PHYSICIAN: Henry Pope M.D. REASON FOR CONSULTATION: Hyperkalemia. REASON FOR ADMISSION: Abnormal labs. HISTORY OF PRESENT ILLNESS: A 77-year-old female with past medical history of CVA, aspiration pneumo julio c, PEG tube, type 2 diabetes, and hypertension, came to the hospital with above complaints. The pa rosio was found to have high potassium and sent to the hospital. The patient is not on any SHAAN inhib itor or potassium supplements per the medication list and the patient is not able to give good histor y. No fever or chills. No nausea, vomiting, no chest pain, shortness of breath reported to me. No skin rash. PAST MEDICAL HISTORY: Possible cerebrovascular accident, aspiration pneumonia, type 2 diabetes, hype rtension, hyperlipidemia, blindness. PAST SURGICAL HISTORY: PEG tube placement, and hysterectomy. HOME MEDICATIONS: Xanax, Norvasc, aspirin, atorvastatin, Pepcid, Humalog, DuoNebs, multivitamins, sc opolamine transdermal patch, Coenzyme Q10. ALLERGIES: No known drug allergies. SOCIAL HISTORY: No smoking, alcohol or illicit drug abuse. FAMILY HISTORY: No history of kidney disease. REVIEW OF SYSTEMS: Could not be obtained as patient could not participate well. PHYSICAL EXAMINATION: GENERAL: This is a thin-built female in no apparent distress. VITAL SIGNS: Temperature 97.7, pulse 60, respiratory 16, blood pressure 120/77. HEENT: Atraumatic, normocephalic. Oral mucosa is moist. NECK: Supple. CARDIOVASCULAR: S1, S2 heard. Rate and rhythm regular. RESPIRATORY: Clear. GASTROINTESTINAL: Abdomen is soft. MUSCULOSKELETAL: No tenderness. No edema. DERMATOLOGIC: No skin rash. NEUROLOGIC: Alert and awake. PSYCHIATRIC: Mood and affect normal. LABORATORY: Sodium 138, potassium 6.2, BUN is 44, creatinine 1.4, potassium was 6.8 on admission. ASSESSMENT AND PLAN: 1. Severe hyperkalemia. Potassium is getting better with medical management. No acute indication f or dialysis, continue close monitor of potassium and stop potassium supplements, most likely hyperkal emia is from nutritional supplements for which we do not have any record of. Patient currently not o n any potassium supplements. Hold SHAAN inhibitor. 2. Anemia, rule out any bleed. Hemoglobin seems to be stable. Her last hemoglobin was 8.6. 3. Pancytopenia, rule out hemolysis. 4. Hypoalbuminemia, mild. 5. Edema . 6. Hypertension, stable. 7. Avoid potassium supplements. Continue medical management. No acute indication for dialysis, jennifer ht have to hold Lovenox if potassium remains elevated. We will continue close monitoring. Repeat po tassium level in the evening today. Thank you for the consultation. We will follow.
[2017-06-25 05:47] LABS: Anion Gap 13 mmol/L (10-20); BUN (Urea Nitrogen) 38 mg/dL (9.8-20.1); Calc. Creatinine Clearance 24 mL/min (70-130); Carbon Dioxide 26 mmol/L (23-31); Chloride 106 mmol/L (98-107); Estimated GFR-MDRD 44; Magnesium 1.8 mg/dL (1.6-2.6); Phosphorus 4.5 mg/dL (2.3-4.7)
[2017-06-25 06:23] LABS: Hematocrit 29.2 % (36.0-47.0); Mean Platelet Volume 10.7 fL (7.4-10.4); Neutrophil 41 % (42-75); Nucleated RBC 1 % (0); Red Blood Cell (RBC) Count 3.02 mill/uL (4.20-5.40); White Blood Cell (WBC) Count 1.9 thou/uL (4.8-10.8)
[2017-06-25] MEDS: Amlodipine 5 MG TAB PER TUBE SCH (09:47)
[2017-06-25] MEDS: Famotidine 20 MG TAB PO SCH ×2 (09:48→21:39)
[2017-06-25] MEDS: Docusate 100 MG CAP PO SCH ×2 (09:48→21:40)
[2017-06-25] MEDS: Ubidecarenone 50 MG CAP PER TUBE SCH (09:48)
[2017-06-25] MEDS: Enoxaparin Sodium 30 MG/0.3 ML SYRINGE SC SCH (09:48)
[2017-06-25] MEDS: Multivit, Therapeutic 1 TAB PER TUBE SCH (09:48)
[2017-06-25] MEDS: Sodium Chloride 0.9% 1,000 ML IV SCH ×2 (09:49→21:39)
--- NOTE | 2017-06-25 10:07 | PQF ---
CLINICAL DOCUMENTATION IMPROVEMENT CLARIFICATION FORM: ICD-10 Updated PLEASE DO AN ADDENDUM TO THE PROGRESS NOTE WITH ANY DOCUMENTATION UPDATES OR ADDITIONS AND CARRY THROUGH TO DC SUMMARY. THANK YOU. Date: 06/25 ATTN: DR. RUBINA BELLE Please exercise your independent, professional judgment in responding to the clarification form. Clinical indicators are provided on the bottom of this form for your review Please check appropriate box(s): [ ] Protein Calorie Malnutrition: [ ] Mild [ ] Moderate [ ] Severe [ ] Other Malnutrition (please specify) __ [ X ] Cachexia [ ] Other diagnosis [ ] Unable to determine CLINICAL INDICATORS - SIGNS / SYMPTOMS / LABS BMI: 17.0 WIRE STRETCHER CONSULT DOCUMENTATION 06/25: SEVERE MUSCLE WASTING TO TEMPORAL REGION , CLAVICLE, AND SHOULDERS/ACROMION PROCESS OBSERVED BY RD; HEALING STAGE 1 PRESSURE ULCER TO R BUTTOCK, STAGE I PRESSURE ULCER VS DTI TO SACROCOCCYXGEAL PT WITH 10% WEIGHT LOSS IN 1 MONTH, 21% WEIGHT LOSS IN 8 MONTHS, SEVERE MUSCLE WASTING NOTED RISK FACTORS: RECENT ASPIRATION PNEUMONIA S/P PEG TUBE PLACEMENT HYPERKALEMIA TREATMENT: DIETARY CONSULT TUBE FEEDINGS THANK YOU! Maya (This form is maintained as a part of the permanent medical record) 2014 [employer]. All Rights Reserved Maya Patrick RN, [email or web address] Office: [phone] [facility]
--- NOTE | 2017-06-25 10:45 | PDOC.PN ---
- Subjective Encounter Start Date: 06/25/17 Encounter Start Time: 12:00 Subjective: no complaints, no pain, no trouble breathing - Objective Resuscitation Status: Resuscitation Status DNR:Do Not Resuscitate MAR Reviewed: Yes Vital Signs & Weight: Vital Signs (12 hours) Temp Pulse Resp BP BP BP Pulse Ox 06/25/17 09:47 85 121/64 06/25/17 09:27 97.3 F L 85 16 121/64 96 06/25/17 04:00 97.4 F L 89 20 134/73 98 06/25/17 00:00 72 16 139/70 Weight Admit Weight 102 lb 1.6 oz Weight 102 lb 1.6 oz I&O: 06/24/17 06/25/17 06/26/17 06:59 06:59 06:59 Intake Total 2059 Balance 2059 267 Result Diagrams: 06/25/17 04:42 06/25/17 04:42 Additional Labs: Accuchecks 06/25/17 06/24/17 06/24/17 04:36 23:44 20:10 POC Glucose 158 H 186 H 219 H 06/24/17 16:19 POC Glucose 77 Phys Exam - Physical Examination Constitutional: NAD HEENT: moist MMs Respiratory: no wheezing, no rales, no rhonchi Cardiovascular: RRR Gastrointestinal: soft, positive bowel sounds PEG in place Musculoskeletal: no edema, pulses present Psychiatric: normal affect Dx/Plan (1) Hyperkalemia Code(s): E87.5 - HYPERKALEMIA Status: Acute Comment: improving, continue fluids and holding SHAAN-I (2) Acute worsening of stage 3 chronic kidney disease Code(s): N18.3 - CHRONIC KIDNEY DISEASE, STAGE 3 (MODERATE) Status: Acute (3) Dysphagia, oropharyngeal Code(s): R13.12 - DYSPHAGIA, OROPHARYNGEAL PHASE Status: Chronic Comment: s/ p peg 06/03/17 (4) Hypothermia Code(s): T68.XXXA - HYPOTHERMIA, INITIAL ENCOUNTER Status: Chronic (5) Physical deconditioning Code(s): R53.81 - OTHER MALAISE Status: Chronic (6) Anemia, normocytic normochromic Code(s): D64.9 - ANEMIA, UNSPECIFIED Status: Chronic (7) DM2 (diabetes mellitus, type 2) Status: Chronic Comment: (8) HLD (hyperlipidemia) Code(s): E78.5 - HYPERLIPIDEMIA, UNSPECIFIED Status: Chronic Qualifiers: (9) HTN (hypertension) Code(s): I10 - ESSENTIAL (PRIMARY) HYPERTENSION Status: Chronic Qualifiers: Hypertension type: essential hypertension Qualified Code(s): I10 - Essential (primary) hypertension (10) Leukopenia Code(s): D72.819 - DECREASED WHITE BLOOD CELL COUNT, UNSPECIFIED Status: Acute - Plan cont current plan of care, PT/OT, DVT proph w/lovenox, DVT proph w/SCDs * . - Discharge Day Encounter end time: 12:30
[2017-06-25] MEDS ORDERED: Dextrose 5% in Water 1,000 ML IV PRN (13:22)
[2017-06-25] MEDS ORDERED: Dextrose 50% Abboject 50 ML SYRINGE IVP PRN (13:22)
[2017-06-25] MEDS ORDERED: Insulin Regular 300 UNITS/3 ML VIAL SC PRN (13:22)
[2017-06-25] MEDS: Insulin Regular 300 UNITS/3 ML VIAL SC PRN ×2 (13:32→17:41)
--- NOTE | 2017-06-25 18:10 | CON ---
DATE OF CONSULTATION: 06/25/2017 REASON FOR CONSULTATION: Leukopenia. HISTORY OF PRESENT ILLNESS: Ms. Mcconnell is a pleasant 77-year-old female who [facility] for hyperkalemia. She was recently discharged from this facility on 2016. She was here for aspiration pneumonia and acute respiratory failure. She was intubated during that visitation. On this admission, her white count was 3.0. She had 46% neutrophils and 33% lymphocytes. She had 1 nucleated RBC on prior admission when she was here for pneumonia. She was originally leukopenic, but then had a leukocytosis over the course of her prior stay. Her white count trended downward and on discharge it was 3.3. On 06/17/2017, CBC drawn at the [facility] showed a WBC of 2.0 with 82% neutrophils and 12% lymphocytes. The patient also has a history of platelet clumping. On this admission, she has been given IV fluids. She was given medication to lower her potassium. History was obtained from both the patient and review of chart as she is a poor historian. She does deny any recent fever, no night sweats, shortness of breath, chest pain, abdominal pain or diarrhea. PAST MEDICAL HISTORY: 1. Cerebrovascular accident with left hemiparesis. 2. Aspiration pneumonia with PEG tube placement. 3. Diabetes mellitus 2. 4. Dyslipidemia. 5. Hypertension. 6. Chronic kidney disease, stage 3. 7. Anemia of chronic disease. PAST SURGICAL HISTORY: 1. PEG tube placement. 2. Hysterectomy. ALLERGIES: No known drug allergies. HOME MEDICATIONS: 1. Xanax 0.25 mg p.r.n. 2. Norvasc 5 mg daily. 3. Aspirin 81 mg daily. 4. Lipitor 10 mg daily. 5. Pepcid 20 mg b.i.d. 6. Humalog p.r.n. 7. Multivitamin daily. 8. Zofran p.r.n. 9. Scopolamine 1.5 mg every 3 days. 10. Senokot daily. 11. Thiamin daily. 12. CoQ10 daily. FAMILY HISTORY: Noncontributory. SOCIAL HISTORY: She [facility] a [facility] a [facility]. No alcohol, tobacco or illicit drug use. REVIEW OF SYSTEMS: A 12-point review of systems is negative. PHYSICAL EXAMINATION: VITAL SIGNS: Temperature is 97.2, pulse is 84, respiratory rate 16, BP is 125/ 71. She is 94% on room air. GENERAL: Well-developed, well-nourished female in no acute distress. HEENT: Normocephalic, atraumatic. Pupils equal and reactive to light. NECK: Supple. CARDIOVASCULAR: Regular rate and rhythm. LUNGS: Clear to auscultation. ABDOMEN: Soft, nontender, bowel sounds are positive. There is no organomegaly. EXTREMITIES: No clubbing, cyanosis or edema. SKIN: No rash. HEMATOLOGIC: No petechia or purpura. NEUROLOGIC: Nonfocal. PSYCHIATRIC: The patient is oriented but poor historian. PERTINENT LABORATORY AND X-RAYS: Current WBC is 1.9, hemoglobin 9.2, hematocrit 29.2, platelets 164,000. She got 41% neutrophils, 43% lymphocytes, 14% monocytes, and 1 nucleated RBC. Sodium is 140, potassium 5.2, chloride 106 , CO2 is 26, BUN 38, creatinine 1.4, calcium is 10, total bilirubin is 0.4, AST is 45, ALT is 45, alkaline phosphatase is 183. Creatinine kinase is 56, serum total protein is 7.1, albumin 2.4, globulin 3.7. Urine showed no bacteria. Chest x-ray showed COPD. IMPRESSION: 1. Intermittent leukopenia, likely consumptive due to illness. 2. Chronic kidney disease, stage 3. 3. Chronic anemia. 4. Hyperkalemia. 5. Dehydration. 6. Recent sepsis from aspiration pneumonia. DISCUSSION: The chart was discussed and reviewed with Dr. Canas. We feel that the leukopenia is likely due to her recent illness. There is no indication at this time for a bone marrow biopsy. Recommend monitoring the CBC. Her WBC should return to normal value once she has fully recovered from her recent hospitalizations. No further recommendations at this time. Thank you for the consult. We will follow her hospital course remotely. ABBEY
[2017-06-25] MEDS: Atorvastatin Calcium 10 MG TAB PER TUBE SCH (21:39)
[2017-06-25] MEDS: ALPRAZolam 0.5 MG TAB PER TUBE SCH (21:39)
--- NOTE | 2017-06-25 23:57 | PRG ---
DATE OF SERVICE: 06/25/2017 SUBJECTIVE: Patient was seen and examined at bedside and overnight events noted. Patient denies any shortness of breath or chest pain or palpitation. No history of nausea or vomiting or diarrhea or f ever or chills or cramps. OBJECTIVE: GENERAL: This is an elderly female, in no apparent distress. VITAL SIGNS: Temperature 97.5, pulse , blood pressure 108/59. HEENT: Atraumatic, normocephalic, Oral mucosa is moist. NECK: Supple. CARDIOVASCULAR: S1, S2 heard, rate and rhythm regular. RESPIRATORY: Clear to auscultation. GASTROINTESTINAL: Abdomen is soft. MUSCULOSKELETAL: No tenderness, no edema. DERMATOLOGIC: No skin rash. NEUROLOGIC: Alert and awake and oriented x3. No focal neurologic deficits. Moving all the extremit ies. PSYCHIATRIC: Mood and affect normal. LABORATORY DATA: Potassium is 5.2, BUN is 32, creatinine is 1.4. ASSESSMENT AND PLAN: 1. Acute kidney injury. Renal function is better. 2. Hyperkalemia, much better. 3. Edema, controlled. 4. Hypertension. 5. Pancytopenia, monitor. 6. Hypoalbuminemia, mild. 7. Potassium level is better. Limit potassium in the diet. Continue hydration and Lasix as tolerat ed. We will follow.
[2017-06-26 05:27] LABS: Anion Gap 11 mmol/L (10-20); BUN (Urea Nitrogen) 30 mg/dL (9.8-20.1); Calc. Creatinine Clearance 31 mL/min (70-130); Calcium 9.2 mg/dL (7.8-10.44); Carbon Dioxide 28 mmol/L (23-31); Chloride 107 mmol/L (98-107); Estimated GFR-MDRD 56
[2017-06-26] MEDS: Sodium Chloride 0.9% 1,000 ML IV SCH ×2 (05:57→17:19)
[2017-06-26 06:02] LABS: Band 3 % (5-11); Hematocrit 28.7 % (36.0-47.0); Mean Platelet Volume 9.9 fL (7.4-10.4); Neutrophil 58 % (42-75); Nucleated RBC 1 % (0); Red Blood Cell (RBC) Count 2.95 mill/uL (4.20-5.40); White Blood Cell (WBC) Count 2.8 thou/uL (4.8-10.8)
--- NOTE | 2017-06-26 08:04 | PDOC.PN ---
- Subjective Encounter Start Date: 06/26/17 Encounter Start Time: 08:00 Subjective: Patient sleepy, mumbles answers, no complaints. Noted by nurse to have low -: temp yest 95.5, resolved with more blankets. Low again this AM. - Objective Resuscitation Status: Resuscitation Status DNR:Do Not Resuscitate MAR Reviewed: Yes Vital Signs & Weight: Vital Signs (12 hours) Temp Pulse Resp BP BP Pulse Ox 06/26/17 04:45 99 06/26/17 04:00 97.9 F 51 L 18 147/69 H 99 06/26/17 00:45 95 06/26/17 00:00 98.2 F 76 20 138/93 H 95 Weight Admit Weight 102 lb 1.6 oz Weight 105 lb 12.8 oz I&O: 06/25/17 06/26/17 06/27/17 06:59 06:59 06:59 Intake Total 2059 412 Balance 2059 4120 Result Diagrams: 06/26/17 04:58 06/26/17 04:58 Additional Labs: Accuchecks 06/26/17 06/25/17 06/25/17 04:25 23:59 20:56 POC Glucose 195 H 227 H 131 H 06/25/17 06/25/17 17:21 12:01 POC Glucose 259 H 313 H Phys Exam - Physical Examination Constitutional: NAD HEENT: moist MMs Respiratory: no wheezing, no rales, no rhonchi Cardiovascular: RRR Gastrointestinal: soft, positive bowel sounds Neurological: non-focal Deviation from normal: sleepy, slow responses, baseline Dx/Plan (1) Hyperkalemia Code(s): E87.5 - HYPERKALEMIA Status: Resolved Comment: improving, continue fluids and holding SHAAN-I (2) Acute worsening of stage 3 chronic kidney disease Code(s): N18.3 - CHRONIC KIDNEY DISEASE, STAGE 3 (MODERATE) Status: Acute Comment: improving (3) Dysphagia, oropharyngeal Code(s): R13.12 - DYSPHAGIA, OROPHARYNGEAL PHASE Status: Chronic Comment: s/ p peg 06/03/17 (4) Hypothermia Code(s): T68.XXXA - HYPOTHERMIA, INITIAL ENCOUNTER Status: Chronic (5) Physical deconditioning Code(s): R53.81 - OTHER MALAISE Status: Chronic (6) Anemia, normocytic normochromic Code(s): D64.9 - ANEMIA, UNSPECIFIED Status: Chronic (7) DM2 (diabetes mellitus, type 2) Status: Chronic Comment: (8) HLD (hyperlipidemia) Code(s): E78.5 - HYPERLIPIDEMIA, UNSPECIFIED Status: Chronic Qualifiers: (9) HTN (hypertension) Code(s): I10 - ESSENTIAL (PRIMARY) HYPERTENSION Status: Chronic Qualifiers: Hypertension type: essential hypertension Qualified Code(s): I10 - Essential (primary) hypertension (10) Leukopenia Code(s): D72.819 - DECREASED WHITE BLOOD CELL COUNT, UNSPECIFIED Status: Acute Comment: improving, likely due to illness/consumption, appreciate Heme/ Onc evaluation and recommendations - Plan cont current plan of care hyperkalemia resolved, ok to discharge when cleared by nephrology -: and temperature stable. Will check a TSH. * . - Discharge Day Encounter end time: 08:30
[2017-06-26] MEDS: Insulin Regular 300 UNITS/3 ML VIAL SC PRN ×2 (08:54→12:37)
[2017-06-26] MEDS: Multivit, Therapeutic 1 TAB PER TUBE SCH (08:56)
[2017-06-26] MEDS: Amlodipine 5 MG TAB PER TUBE SCH (08:56)
[2017-06-26] MEDS: Famotidine 20 MG TAB PO SCH ×2 (08:56→20:46)
[2017-06-26] MEDS: Ubidecarenone 50 MG CAP PER TUBE SCH (08:56)
[2017-06-26] MEDS: Enoxaparin Sodium 30 MG/0.3 ML SYRINGE SC SCH (08:56)
[2017-06-26] MEDS: Docusate 100 MG CAP PO SCH ×2 (08:57→20:46)
[2017-06-26] MEDS: ALPRAZolam 0.5 MG TAB PER TUBE SCH (20:45)
[2017-06-26] MEDS: Atorvastatin Calcium 10 MG TAB PER TUBE SCH (20:46)
--- NOTE | 2017-06-26 21:56 | PRG ---
DATE OF SERVICE: 06/26/2017 SUBJECTIVE: Patient was seen and examined at bedside and overnight events noted. Patient denies any shortness of breath or chest pain or palpitation. No history of nausea or vomiting or diarrhea or f ever or chills or cramps. OBJECTIVE: GENERAL: This is a well-built female in no apparent distress. VITAL SIGNS: Temperature 97.1, pulse 94, respiratory rate 18, blood pressure 155/82. HEENT: Atraumatic, normocephalic, oral mucosa is moist. NECK: Supple. CARDIOVASCULAR: S1, S2 heard, rate and rhythm regular. RESPIRATORY: Clear to auscultation. GASTROINTESTINAL: Abdomen is soft. MUSCULOSKELETAL: No tenderness, no edema. DERMATOLOGIC: No skin rash. NEUROLOGIC: Alert and awake and oriented x3, no focal neurologic deficits. Moving all the extremiti es. PSYCHIATRIC: Mood and affect normal. LABORATORY DATA: Hemoglobin is 9.1, potassium is 3.7, BUN is 30, and creatinine is 1.1. ASSESSMENT AND PLAN: 1. Acute kidney injury. Renal function is much better and back to baseline. 2. Hyperkalemia, better, most likely from supplements. Would avoid high potassium supplements. Rec [facility] dietitian consult. 3. Hypertension. 4. Pancytopenia. 5. Hypoalbuminemia. 6. Hyperkalemia is better. Renal function is better. Her baseline creatinine is around 1.1 and see ms like she is close to baseline. I will sign off. Please call back with any questions. Limit pota ssium in the diet. Recommend dietitian recommendation for nutrition supplements upon discharge. We will follow.
[2017-06-27 06:06] VITALS: BMI 17.3
[2017-06-27] MEDS: Sodium Chloride 0.9% 1,000 ML IV SCH (06:29)
--- NOTE | 2017-06-27 08:11 | PDOC.PN ---
- Subjective Encounter Start Date: 06/27/17 Encounter Start Time: 08:30 Subjective: Patient awake most of night, now very sleepy this morning. No complaints. - Objective Resuscitation Status: Resuscitation Status DNR:Do Not Resuscitate MAR Reviewed: Yes Vital Signs & Weight: Vital Signs (12 hours) Pulse Resp BP Pulse Ox 06/27/17 04:00 83 20 141/77 H 99 Weight Admit Weight 102 lb 1.6 oz Weight 104 lb 4.8 oz I&O: 06/26/17 06/27/17 06/28/17 06:59 06:59 06:59 Intake Total 4120 2799 Balance 4120 2799 Result Diagrams: 06/26/17 04:58 06/26/17 04:58 Additional Labs: Accuchecks 06/27/17 06/26/17 06/26/17 04:56 23:35 20:08 POC Glucose 183 H 195 H 66 L 06/26/17 06/26/17 16:15 12:11 POC Glucose 212 H 263 H Phys Exam - Physical Examination somnolent, arousable but falls immediately back asleep HEENT: moist MMs Respiratory: no wheezing, no rales, no rhonchi Cardiovascular: RRR, no significant murmur Gastrointestinal: soft, positive bowel sounds PEG in place Neurological: non-focal Deviation from normal: somnolent Dx/Plan (1) Hyperkalemia Code(s): E87.5 - HYPERKALEMIA Status: Resolved (2) Acute worsening of stage 3 chronic kidney disease Code(s): N18.3 - CHRONIC KIDNEY DISEASE, STAGE 3 (MODERATE) Status: Acute Comment: improving (3) Dysphagia, oropharyngeal Code(s): R13.12 - DYSPHAGIA, OROPHARYNGEAL PHASE Status: Chronic Comment: s/ p peg 06/03/17 (4) Hypothermia Code(s): T68.XXXA - HYPOTHERMIA, INITIAL ENCOUNTER Status: Chronic Comment: Patient with recurrent hypothermia past two admissions, needs to have room kept limousine and hearse upholsterer order to prevent recurrence (5) Physical deconditioning Code(s): R53.81 - OTHER MALAISE Status: Chronic (6) Anemia, normocytic normochromic Code(s): D64.9 - ANEMIA, UNSPECIFIED Status: Chronic (7) DM2 (diabetes mellitus, type 2) Status: Chronic Comment: (8) HLD (hyperlipidemia) Code(s): E78.5 - HYPERLIPIDEMIA, UNSPECIFIED Status: Chronic Qualifiers: (9) HTN (hypertension) Code(s): I10 - ESSENTIAL (PRIMARY) HYPERTENSION Status: Chronic Qualifiers: Hypertension type: essential hypertension Qualified Code(s): I10 - Essential (primary) hypertension (10) Leukopenia Code(s): D72.819 - DECREASED WHITE BLOOD CELL COUNT, UNSPECIFIED Status: Acute Comment: improving, likely due to illness/consumption, appreciate Heme/ Onc evaluation and recommendations - Plan cont current plan of care ok to d/c back to [facility] * . - Discharge Day Encounter end time: 09:00
[2017-06-27] MEDS: Ubidecarenone 50 MG CAP PER TUBE SCH (09:37)
[2017-06-27] MEDS: Amlodipine 5 MG TAB PER TUBE SCH (09:37)
[2017-06-27] MEDS: Famotidine 20 MG TAB PO SCH ×2 (09:38→21:24)
[2017-06-27] MEDS: Multivit, Therapeutic 1 TAB PER TUBE SCH (09:38)
[2017-06-27] MEDS: Docusate 100 MG CAP PO SCH ×2 (09:38→21:25)
[2017-06-27] MEDS: Enoxaparin Sodium 30 MG/0.3 ML SYRINGE SC SCH (09:38)
[2017-06-27] MEDS: Insulin Regular 300 UNITS/3 ML VIAL SC PRN ×3 (10:01→17:06)
[2017-06-27] MEDS: Scopolamine 1.5 mg/72 hour Patch TD SCH (13:29)
[2017-06-27] MEDS ORDERED: Melatonin 3 MG TAB PO PRN (17:33)
[2017-06-27] MEDS: Atorvastatin Calcium 10 MG TAB PER TUBE SCH (21:24)
[2017-06-27] MEDS: ALPRAZolam 0.5 MG TAB PER TUBE SCH (21:24)
--- NOTE | 2017-06-27 22:07 | DIS ---
PRIMARY CARE PHYSICIAN: [facility]. ADMISSION DIAGNOSES: 1. Hyperkalemia. 2. Dehydration. 3. Acute on chronic kidney disease. 4. Dysphagia with previous PEG tube placement. DISCHARGE DIAGNOSES: 1. Hyperkalemia, resolved. 2. Acute on chronic stage 3 kidney disease, improved. 3. Oropharyngeal dysphagia with PEG tube. 4. Recurrent hypothermic. 5. Physical deconditioning. 6. Normocytic anemia. 7. Diabetes mellitus type 2. 8. Hyperlipidemia. 9. Hypertension. 10. Leukopenia secondary to chronic illness and consumption, improving. CONSULTATIONS: 1. Nephrology, Dr. Garcia. 2. Hematology/Oncology, Dr. Canas. PROCEDURES: None. PERTINENT LABORATORY DATA: The patient came in with a potassium of 6.8, down to 3.7 at discharge. T he patient came in with a creatinine of 1.51, down to 1.14 at discharge. White blood cell count drop ped to 1.9, up to 2.8 before discharge. Hemoglobin stable at 9.1. Temperature dropped twice once to 95.5 and another time to 90 in the hospital, this resolved with increasing the temperature in the r oom and increasing the number of blankets to stay up to 97.1 and stable at discharge. SUMMARY OF HOSPITAL COURSE: This is a 77-year-old -[place] female who [facility] was found to have hyperkalemia at 6.9 and so she was sent to the ER. There she had emergency liang tments done and then she had her PEG tube feedings changed to Nepro. Dr. Garcia was consulted. She had IV fluids with improvement in her renal function and resolution of her hyperkalemia. The patien t also had recurrent dips of temperature in the hospital. No elevated white count or other signs of infection along with this. Looking back through the notes, she had the same thing happen at her last hospitalization. This always resolves with increasing the ambient temperature. The patient also te nds to sleep most of the day and was up at night. No other complications during this hospitalization . She is stable with a normal potassium and improved renal function at discharge. DISCHARGE MANAGEMENT: Discharged back to [facility]. Activity as to lerated. Physical, occupational, and speech therapy. DIET: Diabetic 1.2 calories per mL tube feeds, 237 mL boluses 6 times per day with 30 mL of free yoan er flushed before and after bolus feeds. She also needs to have a repeat basic metabolic panel and C BC done in 1 week. Ambient temperature in the room needs to be kept elevated to prevent recurrent hy pothermia as her body is not able to regulate this temperature well.
--- NOTE | 2017-06-28 08:17 | PDOC.PN ---
- Subjective Encounter Start Date: 06/28/17 Encounter Start Time: 07:15 Subjective: confused.. - Objective Resuscitation Status: Resuscitation Status DNR:Do Not Resuscitate Vital Signs & Weight: Vital Signs (12 hours) Temp Pulse Resp BP Pulse Ox 06/28/17 06:21 95.9 F L 58 L 16 100 06/28/17 04:45 93.2 F L 48 L 16 131/71 100 06/28/17 04:27 64 20 128/62 94 L Weight Admit Weight 102 lb 1.6 oz Weight 105 lb 3.2 oz I&O: 06/27/17 06/28/17 06/29/17 06:59 06:59 06:59 Intake Total 2799 3082 Balance 2799 3082 Result Diagrams: 06/26/17 04:58 06/26/17 04:58 Additional Labs: Accuchecks 06/28/17 06/27/17 06/27/17 04:00 23:27 16:22 POC Glucose 106 118 H 248 H 06/27/17 06/27/17 11:42 08:13 POC Glucose 216 H 187 H Phys Exam - Physical Examination HEENT: moist MMs (Blind in both eyes.) Neck: no JVD Respiratory: clear to auscultation bilateral Cardiovascular: RRR Gastrointestinal: soft, non-tender Musculoskeletal: no edema Neurological: moves all 4 limbs Dx/Plan (1) Leukopenia Code(s): D72.819 - DECREASED WHITE BLOOD CELL COUNT, UNSPECIFIED Status: Acute Plan: To f/u with Hem-Onc. Comment: Improving. (2) Acute worsening of stage 3 chronic kidney disease Code(s): N18.3 - CHRONIC KIDNEY DISEASE, STAGE 3 (MODERATE) Status: Acute Comment: improving (3) Anemia, normocytic normochromic Code(s): D64.9 - ANEMIA, UNSPECIFIED Status: Chronic Comment: f/u with hematology.. (4) DM2 (diabetes mellitus, type 2) Status: Chronic Plan: continue current therapy.. Comment: BS satisfactory,.. (5) HLD (hyperlipidemia) Code(s): E78.5 - HYPERLIPIDEMIA, UNSPECIFIED Status: Chronic Qualifiers: (6) HTN (hypertension) Code(s): I10 - ESSENTIAL (PRIMARY) HYPERTENSION Status: Chronic Qualifiers: Hypertension type: essential hypertension Qualified Code(s): I10 - Essential (primary) hypertension Comment: BP satisfactory.. (7) Hypothermia Code(s): T68.XXXA - HYPOTHERMIA, INITIAL ENCOUNTER Status: Acute Plan: Check cortisol level. Comment: suspect central hypothermia...TFT's ok, no clinical sepsis. - Plan continue plan of care.. -: f/u cotisol level. -: to residential soon. * .
[2017-06-28] MEDS: Ubidecarenone 50 MG CAP PER TUBE SCH (10:21)
[2017-06-28] MEDS: Enoxaparin Sodium 30 MG/0.3 ML SYRINGE SC SCH (10:21)
[2017-06-28] MEDS: Multivit, Therapeutic 1 TAB PER TUBE SCH (10:21)
[2017-06-28] MEDS: Amlodipine 5 MG TAB PER TUBE SCH (10:22)
[2017-06-28] MEDS: Famotidine 20 MG TAB PO SCH (10:22)
[2017-06-28] MEDS: Docusate 100 MG CAP PO SCH (10:22)
[2017-06-28] MEDS: Insulin Regular 300 UNITS/3 ML VIAL SC PRN (14:00)
--- NOTE | 2017-06-28 16:04 | DIS ---
DATE OF ADMISSION: 06/24/2017 DATE OF DISCHARGE: 06/28/2017 DIAGNOSES: Hyperkalemia, hypertension, diabetes mellitus, diabetic retinopathy, dyslipidemia, old ce rebrovascular accident, acute kidney injury plus chronic kidney disease, dysphagia, and hypothermia. CONSULTANTS: Dr. Garcia and Dr. Dubose. PROCEDURE: Chest x-ray. HOSPITAL COURSE: Course of hospitalization uncomplicated. The patient was noticed to be hypothermic . So far all workup negative. Most likely, the patient has ventral dysregulation with subsequent hy pothermia. The patient is to follow up with her primary care physician. For discharge medications, please see discharge medication reconciliation sheet. As mentioned earlier, she is to follow up with her primary care physician. For today's physical examination, please see patient's medical record p aye note section. Discharge time 32 minutes.
[2017-06-28 17:02] VITALS: BP 154/77; TEMP 97.4
== END 2017-06-28 17:10 | DRG 683 ==
LOC: ERS 09:54 → 2NO 11:06
PROVIDERS: ADMIT Internal Medicine; ATTEND Internal Medicine
DX: N17.9 Acute kidney failure, unspecified (principal); D61.818 Other pancytopenia; T68.XXXA Hypothermia, initial encounter; R64 Cachexia; E11.22 Type 2 diabetes mellitus with diabetic chronic kidney disease; R13.12 Dysphagia, oropharyngeal phase; I69.954 Hemiplegia and hemiparesis following unspecified cerebrovascular disease affecting left non-dominant side; Z68.1 Body mass index [BMI] 19.9 or less, adult; E87.5 Hyperkalemia; E86.0 Dehydration; N18.3 Chronic kidney disease, stage 3 (moderate); Z93.1 Gastrostomy status; E78.5 Hyperlipidemia, unspecified; E11.319 Type 2 diabetes mellitus with unspecified diabetic retinopathy without macular edema; H54.7 Unspecified visual loss; Z79.82 Long term (current) use of aspirin; Z79.4 Long term (current) use of insulin; I12.9 Hypertensive chronic kidney disease with stage 1 through stage 4 chronic kidney disease, or unspecified chronic kidney disease; E88.09 Other disorders of plasma-protein metabolism, not elsewhere classified; D64.9 Anemia, unspecified; D72.819 Decreased white blood cell count, unspecified
CPT/HCPCS: 36415; 36416; 71010; 80048; 82330; 82533; 82553; 82803; 83605; 83735; 84100; 84443; 84484; 85014; 85025; 93005; 96374; 96375; A4216; G8978-GP-CN; G8979-GP-CK; G8996-GN-CN; G8997-GN-CM; J1650; J1815; J1940

== ENCOUNTER 2017-07-13 18:31 | Inpatient (IN) | payer MEDICARE, MEDICAID ==
[2017-07-13 19:12] LABS: Hemoglobin 8.7 g/dL (12.0-16.0); Mean Corpuscular HGB CONC 32.5 g/dL (32.0-36.0); Mean Corpuscular Volume 95.6 fl (81.0-99.0); Mean Platelet Volume 9.9 fL (7.4-10.4); Platelet Count 157 thou/uL (130-400); RBC Distribution Width 17.2 % (11.5-14.5); White Blood Cell (WBC) Count 2.1 thou/uL (4.8-10.8)
[2017-07-13] MEDS ORDERED: Levofloxacin 500 mg/D5W 100 ml Premix Bag ONE (19:15)
--- NOTE | 2017-07-13 19:26 | RAD ---
RADIOGRAPH CHEST 1 VIEW: Date: 07/13/17 Time: 6:14 p.m. HISTORY: 77-year-old female with productive cough and wheezing. Sepsis alert. COMPARISON: 07/12/17, 2:14 p.m. FINDINGS: The previously noted mild densities at the medial aspect right lower lobe is unchanged. There is a n ew finding of air space opacity in the left lower lobe. There is another new finding of complete silh ouetting of the left hemidiaphragm, which could be due to the left lower lobe infiltrate, a left pleu ral effusion, or a combination of both. There is cardiomegaly without brittney pulmonary edema. There is probably also a small right pleural effusion. Tortuosity, ectasia, and calcification of thoracic aor ta. No pneumothorax. IMPRESSION: 1. Interval worsening of left lower lobe infiltrate: Evidence for worsening of left lower lobe p neumonia. 2. No significant interval change in the mild right lower lobe pulmonary density, which could be atelectasis or pneumonia. 3. Interval increase in volume of small bilateral pleural effusions, left greater than right. 4. Cardiomegaly. 5. Ectasia, tortuosity, and atherosclerosis of thoracic aorta. JN [] POS: DEWEY
[2017-07-13 19:28] LABS: ALT (SGPT) 20 U/L (8-55); AST (SGOT) 22 U/L (5-34); Albumin 2.9 g/dL (3.4-4.8); Alkaline Phosphatase 133 U/L (40-150); Anion Gap 16 mmol/L (10-20); BUN (Urea Nitrogen) 33 mg/dL (9.8-20.1); Bilirubin, Total 0.5 mg/dL (0.2-1.2); Calc. Creatinine Clearance 0 mL/min (70-130); Calcium 9.6 mg/dL (7.8-10.44); Carbon Dioxide 27 mmol/L (23-31); Chloride 97 mmol/L (98-107); Estimated GFR-MDRD 37; Glucose 309 mg/dL (83-110); Potassium 4.6 mmol/L (3.5-5.1); Protein, Total 6.9 g/dL (6.0-8.3); Sodium 135 mmol/L (136-145)
[2017-07-13 19:32] LABS: Anisocytosis SLIGHT = 6-15 cells (100X) (0-5/hpf); Band 30 % (5-11); Lymphocytes 12 % (21-51); MDiff Complete? YES; Metamyelocyte 3 % (0-0); Monocytes 7 % (0-10); Neutrophil 48 % (42-75); PLT Morphology Comment Appears Adequate; Polychromasia SLIGHT = 2-3 cells (100X) (0-2/hpf); Target Cells SLIGHT = 2-5 cells (100X) (0-1/hpf); Toxic Granulation SLIGHT; Vacuoles SLIGHT
[2017-07-13 19:53] LABS: Bilirubin Negative (Negative); Blood, Urine Negative (Negative); Clarity CLOUDY (Clear); Glucose, Urine (Dipstick) 250 mg/dL (Negative); Leukocyte Moderate (Negative); Nitrite Negative (Negative); Protein, Urine (Dipstick) Trace mg/dL (Neg-Trace); Urobilinogen 0.2 mg/dL (0.2-1.0)
[2017-07-13 19:55] LABS: Bacteria/HPF Rare-Few HPF (None Seen); Hyaline Casts/LPF 7-10 HYALINE CAST LPF (0-3 Hyaline); Pathc Cast-AUWi Flag 0.94 (0-2.49); RBC/HPF 0-3 HPF (0-3); Squamous Epithelial None Seen HPF (0-3); WBC/HPF 21-50 HPF (0-3)
[2017-07-13] MEDS: Sodium Chloride 0.9% 1,000 ML IV SCH (21:52)
[2017-07-13] MEDS ORDERED: Acetaminophen 325 MG TAB PER TUBE PRN (21:53)
--- NOTE | 2017-07-13 21:53 | PDOC.EVN ---
Event Note - Event Note Event Note: [id number] H&P Dictated 1. Pneumonia 2. Sepsis 3. UTI 4. Altered mental status plan: see orders
[2017-07-13] MEDS ORDERED: Ondansetron ODT 4 MG TAB SL PRN (21:54)
[2017-07-13] MEDS ORDERED: Sodium Chloride 0.9% 1,000 ML IV SCH (21:54)
[2017-07-13] MEDS ORDERED: Acetaminophen 325 MG TAB PO PRN (21:54)
[2017-07-13] MEDS ORDERED: Ondansetron HCl/PF 4 MG/2 ML Vial IVP PRN (21:54)
[2017-07-13] MEDS ORDERED: Vancomycin HCl 500 MG in Sodium Chloride 0.9% 100 ML IVPB SCH ×2 (23:00→23:59)
[2017-07-13 23:02] VITALS: BMI 18.9
[2017-07-13] MEDS: MEROPENEM 1 GM/50 ML 1 GM in Premix Bag 1 BAG IVPB SCH (23:28)
[2017-07-13 23:31] LABS: Lactic Acid 2.4 mmol/L (0.5-2.2)
--- NOTE | 2017-07-14 00:18 | HP ---
DATE OF ADMISSION: 07/13/2017 CHIEF COMPLAINT: Cough, congestion. HISTORY OF PRESENT ILLNESS: Patient is a 77-year-old female with past medical history of CVA, dysphagia, hypertension, diabetes type 2, diabetic retinopathy, recently discharged from the hospital to the [facility]. Patient was found to have cough and congestion for the past few days. Symptoms persisted today, patient was also found to be confused and lethargic and not eating well since this morning, so patient was brought to the ER. Complains of some chills and also hypothermic in the ER. PAST MEDICAL HISTORY: As per HPI. PAST SURGICAL HISTORY: PEG tube placement, hysterectomy. SOCIAL HISTORY: No smoking, no alcohol, no drugs. FAMILY HISTORY: Positive for diabetes mellitus. REVIEW OF SYSTEMS: Unavailable from the patient as the patient is currently lethargic. PHYSICAL EXAMINATION: CONSTITUTIONAL/VITAL SIGNS: At the time of H&P performed temperature is 98.2, respiration rate 18. VITAL SIGNS: Blood pressure is stable. GENERAL: The patient is lethargic. HEENT: Anterior nares patent. Oral cavity, poor dentition. NECK: Supple, no JVD. CARDIOVASCULAR SYSTEM: S1, S2 present. No murmurs, no rubs, no gallops. Irregular rate and rhythm. RESPIRATORY SYSTEM: Diminished breath sounds present. Positive for crackles. No rhonchi. GASTROINTESTINAL: Abdomen is soft. PEG tube present. No guarding, no organomegaly. MUSCULOSKELETAL: No edema. CRANIAL NERVE SYSTEM: Lethargic, not following any commands. PSYCHIATRIC: Mood calm at this time. INTEGUMENTARY: Dry skin, loss of velocity present. LABORATORY DATA: At the time of H&P performed white count 2.1, hemoglobin 8.7, platelet count 157. BMP shows sodium 135, potassium 4.2, chloride 97, CO2 of 27 , BUN 33, creatinine 1.62, glucose 319, calcium 9.6. UA moderate leukocyte esterase, 21-50 wbc's. Chest x-ray positive for left lower lobe infiltrate. ASSESSMENT AND PLAN: The patient is 77-year-old female. 1. Pneumonia. Plan to start the patient on broad spectrum antibiotics. Plan to start the patient on meropenem and vancomycin and monitor the patient closely. 2. Urinary tract infection. Plan to send urine for culture and sensitivity. Continue IV antibiotics. 3. Sepsis secondary to urinary tract infection and pneumonia. Continue IV antibiotics. We will monitor her white count closely. 4. Altered mental status, probably secondary to urinary tract infection and history of cerebrovascular accident also. We will go ahead and get CT head also without contrast to rule out by evaluating the new stroke. 5. Diabetes type 2. Monitor blood sugars. We will do insulin sliding scale. 6. History of dysphagia. Continue tube feeds. Case was discussed in detail with the patient and patient's daughter and granddaughter also. Patient's daughter requested DNR-CCA/DNI. We will go ahead and place the patient per code status protocol. MTDD
[2017-07-14 05:09] LABS: Anion Gap 14 mmol/L (10-20); BUN (Urea Nitrogen) 27 mg/dL (9.8-20.1); Calc. Creatinine Clearance 30 mL/min (70-130); Calcium 8.5 mg/dL (7.8-10.44); Carbon Dioxide 25 mmol/L (23-31); Chloride 104 mmol/L (98-107); Estimated GFR-MDRD 49; Glucose 194 mg/dL (83-110); Potassium 4.9 mmol/L (3.5-5.1); Sodium 138 mmol/L (136-145)
[2017-07-14 06:03] LABS: Band 14 % (5-11); Eosinophils 1 % (0-10); Hemoglobin 7.5 g/dL (12.0-16.0); Lymphocytes 14 % (21-51); MDiff Complete? YES; Mean Corpuscular HGB CONC 32.2 g/dL (32.0-36.0); Mean Corpuscular Hemoglobin 30.6 pg (27.0-31.0); Mean Corpuscular Volume 95.2 fl (81.0-99.0); Mean Platelet Volume 8.8 fL (7.4-10.4); Metamyelocyte 1 % (0-0); Monocytes 8 % (0-10); Neutrophil 60 % (42-75); PLT Morphology Comment Appears Adequate; Platelet Clumps SLIGHT; Platelet Count 155 thou/uL (130-400); RBC Distribution Width 17.2 % (11.5-14.5); RBC Morphology Normal; Reactive Lymphocytes 1 % (0-10); Red Blood Cell (RBC) Count 2.45 mill/uL (4.20-5.40); White Blood Cell (WBC) Count 2.1 thou/uL (4.8-10.8)
[2017-07-14] MEDS: Enoxaparin Sodium 40 MG/0.4 ML SYRINGE SC SCH (08:28)
[2017-07-14] MEDS: Heparin 5,000 UNITS/ML VIAL SC SCH ×3 (08:29→20:37)
[2017-07-14] MEDS: Famotidine/PF 20 mg/2ml Vial SLOW IVP SCH (08:29)
[2017-07-14] MEDS: Sodium Chloride 0.9% 1,000 ML IV SCH (10:54)
[2017-07-14] MEDS: MEROPENEM 1 GM/50 ML 1 GM in Premix Bag 1 BAG IVPB SCH (10:54)
--- NOTE | 2017-07-14 14:07 | PDOC.PN ---
- Subjective Encounter Start Date: 07/14/17 Encounter Start Time: 14:06 Ms. Mcconnell was seen today in follow-up of Pneumonia. She is on a venti-mask, and is unresponsive to me. Her eyes are partially open. She demonstrates increased work of breathing. - Objective Resuscitation Status: Resuscitation Status DNR:Do Not Resuscitate MAR Reviewed: Yes Vital Signs & Weight: Vital Signs (12 hours) Temp Pulse Resp BP Pulse Ox 07/14/17 11:26 97.3 F L 95 20 97/58 L 93 L 07/14/17 08:00 97.3 F L 95 20 93 L 07/14/17 07:25 97.6 F 95 22 H 135/79 89 L 07/14/17 04:00 97.4 F L 94 18 109/56 L 98 I&O: 07/13/17 07/14/17 07/15/17 06:59 06:59 06:59 Intake Total 800 Output Total 2 Balance 800 -2 Result Diagrams: 07/14/17 04:35 07/14/17 04:35 Additional Labs: Accuchecks 07/14/17 07/14/17 07/13/17 11:26 05:42 20:13 POC Glucose 216 H 205 H 279 H Phys Exam - Physical Examination HEENT: PERRLA Respiratory: wheezing present + rhonchi bilaterally , and wheezing Cardiovascular: RRR, no significant murmur, no rub Gastrointestinal: soft, non-tender, positive bowel sounds Musculoskeletal: no edema Dx/Plan (1) Sepsis Code(s): A41.9 - SEPSIS, UNSPECIFIED ORGANISM Status: Acute (2) Acute respiratory failure Code(s): J96.00 - ACUTE RESPIRATORY FAILURE, UNSP W HYPOXIA OR HYPERCAPNIA Status: Resolved Comment: (3) Aspiration pneumonia Code(s): J69.0 - PNEUMONITIS DUE TO INHALATION OF FOOD AND VOMIT Status: Resolved Qualifiers: Aspiration pneumonia type: due to gastric secretions Laterality: bilateral (4) Normocytic anemia Code(s): D64.9 - ANEMIA, UNSPECIFIED Status: Acute (5) Protein-calorie malnutrition, moderate Code(s): E44.0 - MODERATE PROTEIN-CALORIE MALNUTRITION Status: Acute (6) CVA, old, dysphagia Code(s): I69.391 - DYSPHAGIA FOLLOWING CEREBRAL INFARCTION Status: Acute - Plan * Pneumonia- likely due to aspiration- Continue Zosyn * History of CVA with Dysphagia- she had been recently placed on a trial of oral feeding- this may have led to current situation * Leukopenia, and anemia- suspect is from sepsis from Pneumonia, and over poor general health * Prognosis is guarded- this was discussed with the patient's daughter who is at the bedside.
--- NOTE | 2017-07-14 16:41 | CON ---
DATE OF CONSULTATION: 07/14/2017 REASON FOR CONSULTATION: Altered mental status, cough, and abnormal chest x-ray. HISTORY OF PRESENT ILLNESS: A 77-year-old with a history of type 2 diabetes mellitus, hypertension, and pontine CVA with severe neurological impairment and swallowing dysfunction who had a gastrostomy tube placed earlier this year. Patient had been in a group home facility and then transferred t o a senior care in the area. About 2 weeks before admission, she had repeat swallowing study and th en had oral feedings with modified diet started. For the past few days, the patient has developed a worsening cough, tachypnea, congestion, and then altered mental status. Patient was brought to the e mergency room and admitted. Initial vital signs with blood pressure 105/58, pulse 77, respiratory ra te 24, O2 sat 92% on room air and temperature 93.7 rectal. Subsequently, the patient's temperature i ncreased to 98.2. Currently, Ms. Mcconnell is sitting upright in bed. She does not interact with examin er. She is obtunded and does not follow commands. By report, she has had no diarrhea. She voids sp ontaneously in her diaper. No history of seizure activity. PAST MEDICAL HISTORY: Prior pontine CVA with severe neurological impairment, oropharyngeal dysphagia requiring gastrostomy tube feedings for the past few months, hypertension, type 2 diabetes, diabetic retinopathy with blindness, recent episode of pneumonia, which is felt to be secondary to aspiration . PAST SURGICAL HISTORY: G-tube placement and hysterectomy. SOCIAL HISTORY: Never a smoker. FAMILY HISTORY: Diabetes type 2. CURRENT MEDICATIONS: Tylenol, Lovenox, Pepcid, meropenem, vancomycin. PHYSICAL EXAMINATION: VITAL SIGNS: T-max 98.2, blood pressure 97/58, pulse 95, respirations 20, O2 sat 93%. SKIN: No areas of skin breakdown. The patient has a peripheral IV access. Gastrostomy tube exit si te appears normal. No Norton catheter. There is diffuse dryness of skin and the sclerae appear white . Pupils are reactive. The patient has numerous teeth in place with marked decay and gum disease. Diffuse stiffness. LUNGS: With symmetric coarse large airway crackles. Symmetric breath sounds, some rhonchi. HEART: S1, S2, regular rate. No S3, S4 or murmurs. ABDOMEN: Flat, soft. Not distended. No ascites or organomegaly. No bladder distention. No joint inflammatory activity. She has pretty good strength in upper extremities and she will move the lower extremities when stimulated. NEUROLOGIC: Plantar responses are upgoing on the left side with some clonus which is nonsustained. Pulses are 1+ in dorsalis pedis. She is obtunded, does not open her eyes spontaneously and does not establish eye contact. Does not follow commands. Moans and groans intermittently. LABORATORY DATA: White cell count 2.1, hemoglobin 8.7, MCV 95, platelets 157 with 48% neutrophils, 3 0% bands, 7% monocytes, 3% metamyelocytes. Sodium 135, creatinine 1.62, now 1.27, and glucose 209 an d 194. Lactic acid 2.4. Liver profile normal. Albumin 2.9. Urinalysis with 21-50 wbcs. Microbiol ogy with one set of blood cultures, thus far no growth. An influenza negative and urine culture from 07/11/2017 no growth at 48 hours and a chest x-ray with worsening left lower lobe infiltrate. ASSESSMENT: 1. Severe neurological impairment following pontine cerebrovascular accident. 2. Gastrostomy feedings. 3. Recently resumed oral feedings after swallow study at the senior care. 4. Evidence of pneumonia, left lower lobe, likely secondary to aspiration. DISCUSSION: The patient likely has developed another episode of aspiration pneumonia following resum ption of oral feedings. We will switch her to Zosyn, discontinue Merrem and vancomycin and continue monitoring progress of the infiltrate. Patient may develop parapneumonic complications, lung abscess , gram negative rods, anaerobes, Streptococci are the most likely culprits here. We will have to dis continue oral feedings and resume gastrostomy feedings only. Other areas of concern are not apparent at this time, I do not think she has an invasive UTI and she seems to be emptying her bladder proper ly. No evidence of any intraabdominal inflammatory process at this point in time.
[2017-07-14] MEDS: Piperacillin/Tazobactam 3.375 GM in Sodium Chloride 0.9% 100 ML IVPB SCH (17:03)
[2017-07-15] MEDS: Piperacillin/Tazobactam 3.375 GM in Sodium Chloride 0.9% 100 ML IVPB SCH ×5 (00:17→23:37)
[2017-07-15] MEDS: Sodium Chloride 0.9% 1,000 ML IV SCH ×2 (00:18→14:50)
[2017-07-15] MEDS: Enoxaparin Sodium 40 MG/0.4 ML SYRINGE SC SCH (08:02)
[2017-07-15] MEDS: Heparin 5,000 UNITS/ML VIAL SC SCH ×3 (08:02→21:00)
[2017-07-15] MEDS: Famotidine/PF 20 mg/2ml Vial SLOW IVP SCH (08:30)
--- NOTE | 2017-07-15 12:49 | PDOC.PN ---
- Subjective Encounter Start Date: 07/15/17 Encounter Start Time: 12:48 Ms. Mcconnell was seen today in follow-up. She was reported by the Physical Therapist to have have participated, and was alert and awake. When I am seeing her she is again lethargic, and non-conversant. She will at least open her eyes fully, and make some grunting noises. - Objective Resuscitation Status: Resuscitation Status DNR:Do Not Resuscitate MAR Reviewed: Yes Vital Signs & Weight: Vital Signs (12 hours) Temp Pulse Resp BP Pulse Ox 07/15/17 08:00 97.6 F 85 16 100 07/15/17 07:25 97.6 F 85 16 117/65 100 07/15/17 02:28 93 L I&O: 07/14/17 07/15/17 07/16/17 06:59 06:59 06:59 Intake Total 800 1950 Output Total 3 Balance 800 1947 Result Diagrams: 07/14/17 04:35 07/14/17 04:35 Additional Labs: Accuchecks 07/15/17 07/15/17 07/14/17 11:25 05:30 20:16 POC Glucose 133 H 152 H 200 H 07/14/17 16:41 POC Glucose 204 H Phys Exam - Physical Examination HEENT: PERRLA + rhonchi bilaterally Cardiovascular: RRR, no significant murmur Gastrointestinal: soft, non-tender, positive bowel sounds Musculoskeletal: no edema Dx/Plan (1) Sepsis Code(s): A41.9 - SEPSIS, UNSPECIFIED ORGANISM Status: Acute (2) Acute respiratory failure Code(s): J96.00 - ACUTE RESPIRATORY FAILURE, UNSP W HYPOXIA OR HYPERCAPNIA Status: Resolved Comment: (3) Aspiration pneumonia Code(s): J69.0 - PNEUMONITIS DUE TO INHALATION OF FOOD AND VOMIT Status: Resolved Qualifiers: Aspiration pneumonia type: due to gastric secretions Laterality: bilateral (4) Normocytic anemia Code(s): D64.9 - ANEMIA, UNSPECIFIED Status: Acute (5) Protein-calorie malnutrition, moderate Code(s): E44.0 - MODERATE PROTEIN-CALORIE MALNUTRITION Status: Acute (6) CVA, old, dysphagia Code(s): I69.391 - DYSPHAGIA FOLLOWING CEREBRAL INFARCTION Status: Acute - Plan * Aspiration Pneumonia with Sepsis- her condition is still guarded- will continue Zosyn * Anemia- will re-check her lab work in the AM * Blood pressure is stable * Continue supportive care.
[2017-07-16 04:49] LABS: Anion Gap 14 mmol/L (10-20); BUN (Urea Nitrogen) 25 mg/dL (9.8-20.1); Calc. Creatinine Clearance 30 mL/min (70-130); Calcium 8.6 mg/dL (7.8-10.44); Carbon Dioxide 23 mmol/L (23-31); Chloride 111 mmol/L (98-107); Estimated GFR-MDRD 50; Glucose 113 mg/dL (83-110); Potassium 3.9 mmol/L (3.5-5.1); Sodium 144 mmol/L (136-145)
[2017-07-16 05:17] LABS: Band 12 % (5-11); Hypochromia SLIGHT = 6-15 cells (100X) (0-5/hpf); Lymphocytes 14 % (21-51); MDiff Complete? YES; Mean Corpuscular HGB CONC 30.9 g/dL (32.0-36.0); Mean Corpuscular Hemoglobin 29.6 pg (27.0-31.0); Mean Corpuscular Volume 95.6 fl (81.0-99.0); Mean Platelet Volume 8.4 fL (7.4-10.4); Metamyelocyte 2 % (0-0); Monocytes 4 % (0-10); Neutrophil 67 % (42-75); Nucleated RBC 1 % (0); PLT Morphology Comment Appears Adequate; Platelet Count 211 thou/uL (130-400); Polychromasia SLIGHT = 2-3 cells (100X) (0-2/hpf); RBC Distribution Width 17.1 % (11.5-14.5); Reactive Lymphocytes 1 % (0-10); Red Blood Cell (RBC) Count 2.35 mill/uL (4.20-5.40)
[2017-07-16] MEDS: Piperacillin/Tazobactam 3.375 GM in Sodium Chloride 0.9% 100 ML IVPB SCH ×6 (06:11→23:21)
[2017-07-16] MEDS: Sodium Chloride 0.9% 1,000 ML IV SCH ×2 (06:11→16:45)
[2017-07-16] MEDS: Famotidine/PF 20 mg/2ml Vial SLOW IVP SCH (08:19)
[2017-07-16] MEDS: Enoxaparin Sodium 40 MG/0.4 ML SYRINGE SC SCH (08:28)
[2017-07-16] MEDS: Heparin 5,000 UNITS/ML VIAL SC SCH ×3 (08:28→21:00)
--- NOTE | 2017-07-16 10:20 | PQF ---
CLINICAL DOCUMENTATION IMPROVEMENT CLARIFICATION FORM: ICD-10 Updated PLEASE DO AN ADDENDUM TO THE PROGRESS NOTE WITH ANY DOCUMENTATION UPDATES OR ADDITIONS AND CARRY THROUGH TO DC SUMMARY. THANK YOU. DATE: 07/16 ATTN: DR. ALEC AVILA Please exercise your independent, professional judgment in responding to the clarification form. Clinical indicators are provided on the bottom of this form for your review Please check appropriate box(s): [ ] Acute Renal Failure (ARF) / Acute Kidney Injury (YAYA) (Please specify associated condition, if applicable) [ ] Other Etiology or underlying conditions related to the diagnosis of ARF/ YAYA: [X ] Acute on Chronic Renal Failure please specify Stage of CKD __III ( see below) [ ] CKD without ARF/YAYA please specify Stage of CKD [ ] Other diagnosis [ ] Unable to determine National Kidney Foundation Guidelines for CKD Staging Stage I Kidney damage with normal or increased GFR GFR > 90 Stage II Kidney damage with mildly decreased GFR GFR 60-89 Stage III Kidney damage with moderately decreased GFR GFR 30-59 Stage IV Kidney damage with severely decreased GFR GFR 16-29 Stage V Kidney failure GFR<15 ESRD End Stage Renal Disease On dialysis For continuity of documentation, please document condition throughout progress notes and discharge summary. Thank You. CLINICAL INDICATORS - SIGNS / SYMPTOMS / LABS BUN: 33 CR: 1.62 GFR: 37 (ON ADMIT, 07/13) 27 1.27 49 (07/14) 25 1.26 50 (07/16) RISK FACTORS: SEPSIS ASPIRATION PNEUMONIA TREATMENTS: IV ANTIBIOTIC (ZOSYN 07/14 - PRESENT; MEROPENEM & VANCOMYCIN 07/13 -) IVF (NS 07/13 - PRESENT) THANK YOU! Maya (This form is maintained as a part of the permanent medical record) 2015 [employer]. All Rights Reserved Maya Patrick RN, BSN [email or web address] Office: [phone] [facility]
--- NOTE | 2017-07-16 16:04 | PDOC.PN ---
- Subjective Encounter Start Date: 07/16/17 Encounter Start Time: 16:01 Ms. Mcconnell was seen today in follow-up of aspiration pneumonia. She is very lethargic and responds weakly by voice. - Objective Resuscitation Status: Resuscitation Status DNR:Do Not Resuscitate MAR Reviewed: Yes Vital Signs & Weight: Vital Signs (12 hours) Temp Pulse Resp BP Pulse Ox 07/16/17 08:00 97.8 F 98 16 100 07/16/17 07:20 97.8 F 98 16 177/74 H 100 Weight Admit Weight 113 lb 11.2 oz Weight 113 lb 11.2 oz I&O: 07/15/17 07/16/17 07/17/17 06:59 06:59 06:59 Intake Total 1949 2099 Output Total 3 Balance 1946 2099 Result Diagrams: 07/16/17 03:23 07/16/17 03:23 Additional Labs: Accuchecks 07/16/17 07/16/17 07/15/17 11:22 04:24 19:29 POC Glucose 105 120 H 133 H 07/15/17 16:34 POC Glucose 132 H Phys Exam - Physical Examination HEENT: PERRLA + rhonchi bilaterally, and rales Cardiovascular: RRR, no significant murmur Gastrointestinal: soft, non-tender, positive bowel sounds Musculoskeletal: no edema Dx/Plan (1) Sepsis Code(s): A41.9 - SEPSIS, UNSPECIFIED ORGANISM Status: Acute (2) Acute respiratory failure Code(s): J96.00 - ACUTE RESPIRATORY FAILURE, UNSP W HYPOXIA OR HYPERCAPNIA Status: Resolved Comment: (3) Aspiration pneumonia Code(s): J69.0 - PNEUMONITIS DUE TO INHALATION OF FOOD AND VOMIT Status: Resolved Qualifiers: Aspiration pneumonia type: due to gastric secretions Laterality: bilateral (4) Normocytic anemia Code(s): D64.9 - ANEMIA, UNSPECIFIED Status: Acute (5) Protein-calorie malnutrition, moderate Code(s): E44.0 - MODERATE PROTEIN-CALORIE MALNUTRITION Status: Acute (6) CVA, old, dysphagia Code(s): I69.391 - DYSPHAGIA FOLLOWING CEREBRAL INFARCTION Status: Acute - Plan * Aspiration Pneumonia with sepsis- She has not progressed much over the past 2 days * Will continue Zosyn * Resume tube feeding * Anemia- will transfuse one unit, and continue to monitor her H&H * Prognosis is guarded * Acute on chronic kidney disease- improved and stable
[2017-07-17] MEDS: Piperacillin/Tazobactam 3.375 GM in Sodium Chloride 0.9% 100 ML IVPB SCH ×4 (05:01→23:40)
[2017-07-17] MEDS: Sodium Chloride 0.9% 1,000 ML IV SCH ×3 (08:12→20:25)
[2017-07-17] MEDS: Famotidine/PF 20 mg/2ml Vial SLOW IVP SCH (08:12)
[2017-07-17] MEDS: Enoxaparin Sodium 40 MG/0.4 ML SYRINGE SC SCH (08:13)
[2017-07-17] MEDS: Heparin 5,000 UNITS/ML VIAL SC SCH ×3 (08:13→20:25)
[2017-07-17 08:48] LABS: Hemoglobin 9.2 g/dL (12.0-16.0); Mean Corpuscular HGB CONC 31.7 g/dL (32.0-36.0); Mean Corpuscular Hemoglobin 30.5 pg (27.0-31.0); Mean Corpuscular Volume 96.2 fl (81.0-99.0); Mean Platelet Volume 8.1 fL (7.4-10.4); Platelet Count 268 thou/uL (130-400); RBC Distribution Width 16.4 % (11.5-14.5); Red Blood Cell (RBC) Count 3.02 mill/uL (4.20-5.40); White Blood Cell (WBC) Count 10.1 thou/uL (4.8-10.8)
[2017-07-17 10:18] LABS: Band 12 % (5-11); Lymphocytes 11 % (21-51); Monocytes 6 % (0-10); Myelocyte 4 % (0-0); Nucleated RBC 1 % (0); Polychromasia MODERATE = 3-4 cells (100X) (0-2/hpf)
[2017-07-17 10:19] LABS: Neutrophil 67 % (42-75)
--- NOTE | 2017-07-17 14:18 | PDOC.PN ---
- Subjective Encounter Start Date: 07/17/17 Encounter Start Time: 14:15 Ms. Mcconnell was seen today in follow-up of aspiration pneumonia. She appears about the same today as yesterday. She still has a lot of upper airway noise, and gurgling. She opens her eyes, and makes sounds which are difficult to understand. she was also reported to have any increased amount of resdual following bolus tube feeds - Objective Resuscitation Status: Resuscitation Status DNR:Do Not Resuscitate MAR Reviewed: Yes Vital Signs & Weight: Vital Signs (12 hours) Temp Pulse Resp BP Pulse Ox 07/17/17 08:00 97.9 F 100 18 100 07/17/17 07:45 97.9 F 100 18 145/79 H 100 07/17/17 04:32 100 Weight Admit Weight 113 lb 11.2 oz Weight 113 lb 11.2 oz I&O: 07/16/17 07/17/17 07/18/17 06:59 06:59 06:59 Intake Total 2100 2250 282 Output Total 2 Balance 2100 2248 282 Result Diagrams: 07/17/17 08:29 07/16/17 03:23 Additional Labs: Accuchecks 07/17/17 07/17/17 07/17/17 12:06 11:48 05:04 POC Glucose 259 H 271 H 189 H 07/16/17 07/16/17 20:03 16:08 POC Glucose 155 H 110 Phys Exam - Physical Examination HEENT: PERRLA + upper airway noise, and rattling Cardiovascular: RRR, no significant murmur Gastrointestinal: soft, non-tender, positive bowel sounds Musculoskeletal: no edema Dx/Plan (1) Sepsis Code(s): A41.9 - SEPSIS, UNSPECIFIED ORGANISM Status: Acute (2) Acute respiratory failure Code(s): J96.00 - ACUTE RESPIRATORY FAILURE, UNSP W HYPOXIA OR HYPERCAPNIA Status: Resolved Comment: (3) Aspiration pneumonia Code(s): J69.0 - PNEUMONITIS DUE TO INHALATION OF FOOD AND VOMIT Status: Resolved Qualifiers: Aspiration pneumonia type: due to gastric secretions Laterality: bilateral (4) Normocytic anemia Code(s): D64.9 - ANEMIA, UNSPECIFIED Status: Acute (5) Protein-calorie malnutrition, moderate Code(s): E44.0 - MODERATE PROTEIN-CALORIE MALNUTRITION Status: Acute (6) CVA, old, dysphagia Code(s): I69.391 - DYSPHAGIA FOLLOWING CEREBRAL INFARCTION Status: Acute - Plan * Aspiration pneumonia- continue Zosyn * She has extreme weakness in her swallow, and can barely handle her own secreation- continue to suction, and will add Glycopyrrolate * DM- blood glucose is now elevated- will add a SSI * CVA- late effects- stable- nutrition via PEG tube only * High residuals during feeding- will convert to Continuous feeds from bolus, and re-assess
[2017-07-17] MEDS: Glycopyrrolate 1 MG TAB PO SCH (20:26)
[2017-07-18] MEDS: Sodium Chloride 0.9% 1,000 ML IV SCH ×2 (05:32→22:01)
[2017-07-18] MEDS: Piperacillin/Tazobactam 3.375 GM in Sodium Chloride 0.9% 100 ML IVPB SCH ×4 (05:33→23:52)
[2017-07-18] MEDS: Heparin 5,000 UNITS/ML VIAL SC SCH ×3 (08:26→20:46)
[2017-07-18] MEDS: Enoxaparin Sodium 40 MG/0.4 ML SYRINGE SC SCH (08:26)
[2017-07-18] MEDS: Glycopyrrolate 1 MG TAB PO SCH ×2 (09:32→20:46)
[2017-07-18] MEDS: Famotidine/PF 20 mg/2ml Vial SLOW IVP SCH (09:32)
--- NOTE | 2017-07-18 14:31 | PDOC.PN ---
- Subjective Encounter Start Date: 07/18/17 Encounter Start Time: 14:28 Ms. Mcconnell was seen today in follow-up of aspiration pneumonia. She is undergoing physical therapy right now. She is much more alert, ( but still appears extremely fatigued) but I am able to understand what she is saying. She is sitting up at the side of the bed with assistance and is performing some leg exercises. She still has some gurgling but much less. Her nurse says she was able to cough up some thick brown sputum. - Objective Resuscitation Status: Resuscitation Status DNR:Do Not Resuscitate MAR Reviewed: Yes Vital Signs & Weight: Vital Signs (12 hours) Temp Pulse Resp BP Pulse Ox 07/18/17 09:32 98.7 F 99 22 H 100 07/18/17 07:35 98.7 F 99 22 H 164/82 H 100 Weight Admit Weight 113 lb 11.2 oz Weight 113 lb 11.2 oz I&O: 07/17/17 07/18/17 07/19/17 06:59 06:59 06:59 Intake Total 2250 2587 90 Output Total 2 2 Balance 2248 2585 90 Result Diagrams: 07/17/17 08:29 07/16/17 03:23 Additional Labs: Accuchecks 07/18/17 07/18/17 07/17/17 11:58 04:37 19:53 POC Glucose 251 H 259 H 261 H 07/17/17 16:02 POC Glucose 287 H Phys Exam - Physical Examination HEENT: PERRLA + rhonchi, and upper airway noise Cardiovascular: RRR, no significant murmur Gastrointestinal: soft, non-tender, positive bowel sounds Musculoskeletal: edema present 1+ pedal edema Dx/Plan (1) Sepsis Code(s): A41.9 - SEPSIS, UNSPECIFIED ORGANISM Status: Acute (2) Acute respiratory failure Code(s): J96.00 - ACUTE RESPIRATORY FAILURE, UNSP W HYPOXIA OR HYPERCAPNIA Status: Resolved Comment: (3) Aspiration pneumonia Code(s): J69.0 - PNEUMONITIS DUE TO INHALATION OF FOOD AND VOMIT Status: Resolved Qualifiers: Aspiration pneumonia type: due to gastric secretions Laterality: bilateral (4) Normocytic anemia Code(s): D64.9 - ANEMIA, UNSPECIFIED Status: Acute (5) Protein-calorie malnutrition, moderate Code(s): E44.0 - MODERATE PROTEIN-CALORIE MALNUTRITION Status: Acute (6) CVA, old, dysphagia Code(s): I69.391 - DYSPHAGIA FOLLOWING CEREBRAL INFARCTION Status: Acute - Plan * Aspiration Pneumonia- she appears to be turning the corner, her WBC has rebounded, she is much more alert, she has been able to weaned off the face mask , but condition is still guarded * Continue Zosyn * Nutritional support with tube feeds * HTN- blood pressure is overall stable * CVA- with late effects- stable * Continue PT/OT.
[2017-07-18] MEDS ORDERED: Dextrose 5% in Water 1,000 ML IV PRN (20:45)
[2017-07-18] MEDS ORDERED: Insulin Detemir 100 UNITS/ML 15 UNITS in Pre-Filled Syringe 1 EACH SC SCH (21:00)
[2017-07-18] MEDS: Acetaminophen 650 MG/20.3 ML UDCUP PER TUBE PRN (22:38)
[2017-07-19] MEDS: Piperacillin/Tazobactam 3.375 GM in Sodium Chloride 0.9% 100 ML IVPB SCH ×4 (05:13→22:45)
[2017-07-19] MEDS: HumaLOG 300 UNITS/3 ML VIAL SC PRN (05:35)
[2017-07-19] MEDS: Famotidine/PF 20 mg/2ml Vial SLOW IVP SCH (08:57)
[2017-07-19] MEDS: Heparin 5,000 UNITS/ML VIAL SC SCH (09:00)
[2017-07-19] MEDS: Enoxaparin Sodium 40 MG/0.4 ML SYRINGE SC SCH (09:00)
[2017-07-19] MEDS: Glycopyrrolate 1 MG TAB PO SCH ×2 (10:17→22:36)
--- NOTE | 2017-07-19 11:19 | PDOC.PN ---
- Subjective Encounter Start Date: 07/19/17 Encounter Start Time: 09:25 Subjective: lethargic, awakens easily - Objective Resuscitation Status: Resuscitation Status DNR:Do Not Resuscitate MAR Reviewed: Yes Vital Signs & Weight: Vital Signs (12 hours) Temp Pulse Resp BP Pulse Ox 07/19/17 07:53 97.7 F 83 20 171/87 H 95 Weight Admit Weight 113 lb 11.2 oz Weight 113 lb 11.2 oz I&O: 07/18/17 07/19/17 07/20/17 06:59 06:59 06:59 Intake Total 2587 1964 Output Total 2 Balance 2584 1964 Result Diagrams: 07/17/17 08:29 07/16/17 03:23 Additional Labs: Accuchecks 07/19/17 07/18/17 07/18/17 05:15 20:13 15:40 POC Glucose 248 H 310 H 283 H 07/18/17 11:58 POC Glucose 251 H Phys Exam - Physical Examination HEENT: PERRLA, moist MMs Neck: no JVD, supple Respiratory: no wheezing basal rales+ Cardiovascular: RRR, no significant murmur Gastrointestinal: soft, no distention, positive bowel sounds peg+ Musculoskeletal: no edema, pulses present Neurological: moves all 4 limbs Dx/Plan (1) Aspiration pneumonia Code(s): J69.0 - PNEUMONITIS DUE TO INHALATION OF FOOD AND VOMIT Status: Acute Qualifiers: Aspiration pneumonia type: due to regurgitated food Laterality: bilateral (2) CVA, old, dysphagia Code(s): I69.391 - DYSPHAGIA FOLLOWING CEREBRAL INFARCTION Status: Chronic (3) Normocytic anemia Code(s): D64.9 - ANEMIA, UNSPECIFIED Status: Chronic (4) Protein-calorie malnutrition, moderate Code(s): E44.0 - MODERATE PROTEIN-CALORIE MALNUTRITION Status: Chronic (5) DM2 (diabetes mellitus, type 2) Status: Chronic Qualifiers: Diabetes mellitus complication status: with hyperglycemia Diabetes mellitus automotive wholesale parts advisor insulin use: with detention use Qualified Code(s): E11.65 - Type 2 diabetes mellitus with hyperglycemia; Z79.4 - penitentiary (current) use of insulin; Z79.4 - elementary esl teacher (current) use of insulin; Z79.4 - penitentiary ( current) use of insulin; Z79.4 - penitentiary (current) use of insulin (6) HLD (hyperlipidemia) Code(s): E78.5 - HYPERLIPIDEMIA, UNSPECIFIED Status: Chronic Qualifiers: Hyperlipidemia type: unspecified (7) HTN (hypertension) Code(s): I10 - ESSENTIAL (PRIMARY) HYPERTENSION Status: Chronic Qualifiers: Hypertension type: essential hypertension Qualified Code(s): I10 - Essential (primary) hypertension (8) Physical deconditioning Code(s): R53.81 - OTHER MALAISE Status: Chronic - Plan is on zosyn -: dc iv fluids, is getting overloaded -: continue peg feeds, add reglan for increasing residuals -: increase levemir to 15 u bid, is on glucerna 1.2 naty peg feeds -: PT to mobilize pt as tolerated * . Review of Systems - Medications/Allergies Allergies/Adverse Reactions: Allergies Allergy/AdvReac Type Severity Reaction Status Date / Time No Known Drug Allergies Allergy Verified 07/13/17 22:36 Medications: Current Medications Acetaminophen (Tylenol Elixir) 650 mg PER TUBE Q4H PRN PRN Reason: Headache/Fever or Pain Last Admin: 07/18/17 22:38 Dose: 650 mg Dextrose/Water (Dextrose 50%) 25 gm IVP PRN PRN PRN Reason: HYPOGLYCEMIA PROTOCOL Enoxaparin Sodium (Lovenox) 40 mg SC 0900 [facility] Last Admin: 07/19/17 09:00 Dose: Not Given Famotidine (Pepcid) 20 mg SLOW IVP DAILY [facility] Last Admin: 07/19/17 08:57 Dose: 20 mg Glucagon (Glucagon) 1 mg IM PRN PRN PRN Reason: HYPOGLYCEMIA PROTOCOL Glycopyrrolate (Robinul) 0.5 mg PO BID [facility] Last Admin: 07/19/17 10:17 Dose: 0.5 mg Heparin Sodium (Porcine) (Heparin) 5,000 units SC TID [facility] Last Admin: 07/19/17 09:00 Dose: 5,000 units Piperacillin Sod/Tazobactam (Sod 3.375 gm/ Sodium Chloride) 100 mls @ 200 mls/ hr IVPB Q6HR [facility] Last Admin: 07/19/17 05:13 Dose: 100 mls Dextrose/Water (D5w) 1,000 mls @ 0 mls/hr IV INF PRN; As Directed PRN Reason: HYPOGLYCEMIA PROTOCOL Insulin Detemir 15 units/ (Miscellaneous Medication) 0.15 mls @ 0 mls/hr SC BID [facility] Insulin Human Lispro (Humalog) 0 units SC .MILD SLIDING SCALE PRN; Protocol PRN Reason: MILD SLIDING SCALE Last Admin: 07/19/17 05:35 Dose: 3 unit Metoclopramide HCl (Reglan) 10 mg PO ACHS [facility] Sodium Chloride (Flush - Normal Saline) 10 ml IVF Q12HR [facility] Last Admin: 07/19/17 08:59 Dose: 10 ml Sodium Chloride (Flush - Normal Saline) 10 ml IVF PRN PRN PRN Reason: Saline Flush
[2017-07-19] MEDS: Metoclopramide HCl 10 MG TAB PO SCH ×3 (12:19→22:35)
[2017-07-19] MEDS: Insulin Detemir 100 UNITS/ML 15 UNITS in Pre-Filled Syringe 1 EACH SC SCH (21:00)
[2017-07-19] MEDS ORDERED: Famotidine 20 MG TAB PO SCH (21:00)
[2017-07-20 05:27] LABS: ALT (SGPT) 16 U/L (8-55); AST (SGOT) 16 U/L (5-34); Albumin 2.6 g/dL (3.4-4.8); Alkaline Phosphatase 142 U/L (40-150); Anion Gap 13 mmol/L (10-20); BUN (Urea Nitrogen) 25 mg/dL (9.8-20.1); Bilirubin, Total 0.5 mg/dL (0.2-1.2); Calc. Creatinine Clearance 31 mL/min (70-130); Calcium 8.8 mg/dL (7.8-10.44); Carbon Dioxide 23 mmol/L (23-31); Chloride 120 mmol/L (98-107); Estimated GFR-MDRD 52; Globulin 3.7 g/dL (2.4-3.5); Glucose 340 mg/dL (83-110); Potassium 4.3 mmol/L (3.5-5.1); Protein, Total 6.3 g/dL (6.0-8.3); Sodium 152 mmol/L (136-145)
[2017-07-20] MEDS: Piperacillin/Tazobactam 3.375 GM in Sodium Chloride 0.9% 100 ML IVPB SCH ×3 (05:35→17:38)
[2017-07-20] MEDS: Acetaminophen 650 MG/20.3 ML UDCUP PER TUBE PRN (05:38)
[2017-07-20 06:30] LABS: #Eosinphils 0.2 thou/uL (0.0-0.7); #Lymphocytes 1.3 thou/uL (1.20-3.40); #Monocytes 0.4 thou/uL (0.11-0.59); #Neutrophils 6.4 thou/uL (1.40-6.50); %Basophils 0.3 % (0.0-1.0); %Eosinophils 1.8 % (0.0-10.0); %Lymphocytes 15.6 % (21.0-51.0); %Monocytes 5.2 % (0.0-10.0); %Neutrophils 77.1 % (42.0-75.0); Hemoglobin 10.4 g/dL (12.0-16.0); Mean Corpuscular HGB CONC 27.1 g/dL (32.0-36.0); Mean Corpuscular Volume 95.8 fl (81.0-99.0); Platelet Count 123 thou/uL (130-400); RBC Distribution Width 17.1 % (11.5-14.5); Red Blood Cell (RBC) Count 4.02 mill/uL (4.20-5.40); White Blood Cell (WBC) Count 8.3 thou/uL (4.8-10.8)
[2017-07-20] MEDS: Glycopyrrolate 1 MG TAB PO SCH ×2 (09:13→20:52)
[2017-07-20] MEDS: Famotidine 20 MG TAB PO SCH (09:13)
[2017-07-20] MEDS: Metoclopramide HCl 10 MG TAB PO SCH ×4 (09:13→20:41)
[2017-07-20] MEDS: Enoxaparin Sodium 40 MG/0.4 ML SYRINGE SC SCH (09:13)
[2017-07-20] MEDS: Insulin Detemir 100 UNITS/ML 15 UNITS in Pre-Filled Syringe 1 EACH SC SCH (09:14)
[2017-07-20] MEDS: HumaLOG 300 UNITS/3 ML VIAL SC PRN ×2 (11:59→18:33)
--- NOTE | 2017-07-20 13:08 | PDOC.PN ---
- Subjective Encounter Start Date: 07/20/17 Encounter Start Time: 10:20 Subjective: lethargic, not oriented - Objective Resuscitation Status: Resuscitation Status DNR:Do Not Resuscitate MAR Reviewed: Yes Vital Signs & Weight: Vital Signs (12 hours) Temp Pulse Resp BP Pulse Ox 07/20/17 11:00 97.3 F L 71 16 176/94 H 97 07/20/17 08:00 97.7 F 83 16 178/79 H 80 L Weight Admit Weight 113 lb 11.2 oz Weight 113 lb 11.2 oz I&O: 07/19/17 07/20/17 07/21/17 06:59 06:59 06:59 Intake Total 1964 1242 Balance 1964 1241 Result Diagrams: 07/20/17 04:39 07/20/17 04:39 Additional Labs: Accuchecks 07/20/17 07/20/17 07/19/17 10:54 05:03 21:15 POC Glucose 385 H 306 H 201 H 07/19/17 16:28 POC Glucose 157 H Phys Exam - Physical Examination HEENT: PERRLA, sclera anicteric Neck: no JVD, supple Respiratory: no wheezing, no rhonchi rales+ Cardiovascular: RRR, no significant murmur Gastrointestinal: soft, non-tender, positive bowel sounds peg+ Musculoskeletal: pulses present, edema present Neurological: non-focal, moves all 4 limbs Dx/Plan (1) Aspiration pneumonia Code(s): J69.0 - PNEUMONITIS DUE TO INHALATION OF FOOD AND VOMIT Status: Acute Qualifiers: Aspiration pneumonia type: due to regurgitated food Laterality: bilateral (2) CVA, old, dysphagia Code(s): I69.391 - DYSPHAGIA FOLLOWING CEREBRAL INFARCTION Status: Chronic (3) Normocytic anemia Code(s): D64.9 - ANEMIA, UNSPECIFIED Status: Chronic (4) Protein-calorie malnutrition, moderate Code(s): E44.0 - MODERATE PROTEIN-CALORIE MALNUTRITION Status: Chronic (5) DM2 (diabetes mellitus, type 2) Status: Chronic Qualifiers: Diabetes mellitus complication status: with hyperglycemia Diabetes mellitus termite exterminator insulin use: with nursing home use Qualified Code(s): E11.65 - Type 2 diabetes mellitus with hyperglycemia; Z79.4 - detention (current) use of insulin; Z79.4 - local company intermodal truck driver (current) use of insulin; Z79.4 - detention ( current) use of insulin; Z79.4 - local company intermodal truck driver (current) use of insulin (6) HLD (hyperlipidemia) Code(s): E78.5 - HYPERLIPIDEMIA, UNSPECIFIED Status: Chronic Qualifiers: Hyperlipidemia type: unspecified (7) HTN (hypertension) Code(s): I10 - ESSENTIAL (PRIMARY) HYPERTENSION Status: Chronic Qualifiers: Hypertension type: essential hypertension Qualified Code(s): I10 - Essential (primary) hypertension (8) Physical deconditioning Code(s): R53.81 - OTHER MALAISE Status: Chronic - Plan has hypernatremia with likely intravasc vol depletion -: has elevated jvd with basal rales as well -: dm is uncontrolled, hence will start 1/2 ns -: one dose lasix -: is on zosyn, prognosis guarded * . Review of Systems - Medications/Allergies Allergies/Adverse Reactions: Allergies Allergy/AdvReac Type Severity Reaction Status Date / Time No Known Drug Allergies Allergy Verified 07/13/17 22:36 Medications: Current Medications Acetaminophen (Tylenol Elixir) 650 mg PER TUBE Q4H PRN PRN Reason: Headache/Fever or Pain Last Admin: 07/20/17 05:38 Dose: 650 mg Dextrose/Water (Dextrose 50%) 25 gm IVP PRN PRN PRN Reason: HYPOGLYCEMIA PROTOCOL Enoxaparin Sodium (Lovenox) 40 mg SC 0900 [facility] Last Admin: 07/20/17 09:13 Dose: 40 mg Famotidine (Pepcid) 20 mg PO DAILY [facility] Last Admin: 07/20/17 09:13 Dose: 20 mg Furosemide (Lasix) 40 mg SLOW IVP ONE [facility] Glucagon (Glucagon) 1 mg IM PRN PRN PRN Reason: HYPOGLYCEMIA PROTOCOL Glycopyrrolate (Robinul) 0.5 mg PO BID [facility] Last Admin: 07/20/17 09:13 Dose: 0.5 mg Piperacillin Sod/Tazobactam (Sod 3.375 gm/ Sodium Chloride) 100 mls @ 200 mls/ hr IVPB Q6HR [facility] Last Admin: 07/20/17 11:58 Dose: 100 mls Dextrose/Water (D5w) 1,000 mls @ 0 mls/hr IV INF PRN; As Directed PRN Reason: HYPOGLYCEMIA PROTOCOL Insulin Detemir 15 units/ (Miscellaneous Medication) 0.15 mls @ 0 mls/hr SC BID [facility] Last Admin: 07/20/17 09:14 Dose: 0.15 mls Sodium Chloride (1/2 Normal Saline) 1,000 mls @ 75 mls/hr IV .[id number] [facility] Insulin Human Lispro (Humalog) 0 units SC .MILD SLIDING SCALE PRN; Protocol PRN Reason: MILD SLIDING SCALE Last Admin: 07/20/17 11:59 Dose: 6 unit Metoclopramide HCl (Reglan) 10 mg PO ACHS [facility] Last Admin: 07/20/17 11:58 Dose: 10 mg Sodium Chloride (Flush - Normal Saline) 10 ml IVF Q12HR [facility] Last Admin: 07/20/17 09:14 Dose: 10 ml Sodium Chloride (Flush - Normal Saline) 10 ml IVF PRN PRN PRN Reason: Saline Flush
[2017-07-20] MEDS ORDERED: Furosemide 40 MG/4 ML VIAL SLOW IVP SCH (13:45)
--- NOTE | 2017-07-20 15:13 | RAD ---
CHEST 1 VIEW: Date: 07/20/17 HISTORY: Evaluate for infiltrate. COMPARISON: Chest 1 view dated 07/13/17. FINDINGS: Right middle lobe air space opacity is present with a left lower lobe air space opacity. Increasing l ayering pleural effusions bilaterally. Heart size is enlarged. There are obstructive pulmonary changes. Dense vascular calcifications of the aorta. IMPRESSION: 1. Worsening right middle and left lower lobe air space opacities concerning for infection. 2. Enlarging effusions. 3. Cardiomegaly. 4. Obstructive pulmonary disease. POS: [facility]
[2017-07-20] MEDS: Insulin Detemir 100 UNITS/ML 20 UNITS in Pre-Filled Syringe 1 EACH SC SCH (20:38)
[2017-07-20] MEDS: hydrALAZINE 20 MG/ML VIAL SLOW IVP PRN (20:43)
[2017-07-21] MEDS: Sodium Chloride 0.45% 1,000 ML IV SCH ×3 (00:27→16:18)
[2017-07-21] MEDS: Piperacillin/Tazobactam 3.375 GM in Sodium Chloride 0.9% 100 ML IVPB SCH ×5 (00:27→22:56)
[2017-07-21 05:33] LABS: Anion Gap 15 mmol/L (10-20); BUN (Urea Nitrogen) 25 mg/dL (9.8-20.1); Calc. Creatinine Clearance 33 mL/min (70-130); Calcium 8.6 mg/dL (7.8-10.44); Carbon Dioxide 27 mmol/L (23-31); Chloride 115 mmol/L (98-107); Estimated GFR-MDRD 56; Glucose 138 mg/dL (83-110); Potassium 3.8 mmol/L (3.5-5.1); Sodium 153 mmol/L (136-145)
[2017-07-21 05:47] LABS: Band 2 % (5-11); Eosinophils 1 % (0-10); Hemoglobin 9.1 g/dL (12.0-16.0); Hypochromia SLIGHT = 6-15 cells (100X) (0-5/hpf); Lymphocytes 13 % (21-51); MDiff Complete? YES; Mean Corpuscular HGB CONC 30.9 g/dL (32.0-36.0); Mean Corpuscular Hemoglobin 29.4 pg (27.0-31.0); Mean Corpuscular Volume 95.1 fl (81.0-99.0); Mean Platelet Volume 9.4 fL (7.4-10.4); Monocytes 3 % (0-10); Neutrophil 81 % (42-75); PLT Morphology Comment Appears Adequate; Platelet Count 182 thou/uL (130-400); RBC Distribution Width 17.2 % (11.5-14.5); White Blood Cell (WBC) Count 9.6 thou/uL (4.8-10.8)
[2017-07-21] MEDS: Insulin Detemir 100 UNITS/ML 20 UNITS in Pre-Filled Syringe 1 EACH SC SCH ×2 (08:31→22:16)
[2017-07-21] MEDS: Famotidine 20 MG TAB PO SCH (08:32)
[2017-07-21] MEDS: Enoxaparin Sodium 40 MG/0.4 ML SYRINGE SC SCH (08:32)
[2017-07-21] MEDS: Metoclopramide HCl 10 MG TAB PO SCH ×4 (08:32→22:14)
[2017-07-21] MEDS: Glycopyrrolate 1 MG TAB PO SCH ×2 (08:32→22:14)
--- NOTE | 2017-07-21 11:13 | PDOC.PN ---
- Subjective Encounter Start Date: 07/21/17 Encounter Start Time: 09:25 Subjective: awake, not oriented -: not in distress - Objective Resuscitation Status: Resuscitation Status DNR:Do Not Resuscitate MAR Reviewed: Yes Vital Signs & Weight: Vital Signs (12 hours) Temp Pulse Resp BP Pulse Ox 07/21/17 08:00 97.3 F L 68 18 100 07/21/17 07:41 97.3 F L 68 18 171/85 H 100 Weight Admit Weight 113 lb 11.2 oz Weight 113 lb 11.2 oz I&O: 07/20/17 07/21/17 07/22/17 06:59 06:59 06:59 Intake Total 1242 2685 Balance 1242 2685 Result Diagrams: 07/21/17 04:47 07/21/17 04:47 Additional Labs: Accuchecks 07/21/17 07/21/17 07/20/17 05:37 05:17 19:50 POC Glucose 107 115 H 274 H 07/20/17 07/20/17 15:54 10:54 POC Glucose 331 H 385 H Phys Exam - Physical Examination HEENT: PERRLA, sclera anicteric Neck: no JVD, supple Respiratory: no rales rhonchi++ b/l Cardiovascular: RRR, no significant murmur Gastrointestinal: soft, non-tender, positive bowel sounds peg+ Musculoskeletal: pulses present, edema present Dx/Plan (1) Aspiration pneumonia Code(s): J69.0 - PNEUMONITIS DUE TO INHALATION OF FOOD AND VOMIT Status: Acute Qualifiers: Aspiration pneumonia type: due to regurgitated food Laterality: bilateral (2) CVA, old, dysphagia Code(s): I69.391 - DYSPHAGIA FOLLOWING CEREBRAL INFARCTION Status: Chronic (3) Normocytic anemia Code(s): D64.9 - ANEMIA, UNSPECIFIED Status: Chronic (4) Protein-calorie malnutrition, moderate Code(s): E44.0 - MODERATE PROTEIN-CALORIE MALNUTRITION Status: Chronic (5) DM2 (diabetes mellitus, type 2) Status: Chronic Qualifiers: Diabetes mellitus complication status: with hyperglycemia Diabetes mellitus watermaster insulin use: with watermaster use Qualified Code(s): E11.65 - Type 2 diabetes mellitus with hyperglycemia; Z79.4 - halfway (current) use of insulin; Z79.4 - halfway (current) use of insulin; Z79.4 - terminal worker ( current) use of insulin; Z79.4 - halfway (current) use of insulin (6) HLD (hyperlipidemia) Code(s): E78.5 - HYPERLIPIDEMIA, UNSPECIFIED Status: Chronic Qualifiers: Hyperlipidemia type: unspecified (7) HTN (hypertension) Code(s): I10 - ESSENTIAL (PRIMARY) HYPERTENSION Status: Chronic Qualifiers: Hypertension type: essential hypertension Qualified Code(s): I10 - Essential (primary) hypertension (8) Physical deconditioning Code(s): R53.81 - OTHER MALAISE Status: Chronic (9) Hypernatremia Code(s): E87.0 - HYPEROSMOLALITY AND HYPERNATREMIA Status: Acute - Plan cxr shows extensive asp pna -: is on 1/2 ns for hypernatremia, bnp is 991 (got lasix x1 yesterday) -: increase levemir to 20 bid for uncontrolled/labile dm -: nebs, zosyn -: prognosis guarded, has severe deconditioning * . Review of Systems - Medications/Allergies Allergies/Adverse Reactions: Allergies Allergy/AdvReac Type Severity Reaction Status Date / Time No Known Drug Allergies Allergy Verified 07/13/17 22:36 Medications: Current Medications Acetaminophen (Tylenol Elixir) 650 mg PER TUBE Q4H PRN PRN Reason: Headache/Fever or Pain Last Admin: 07/20/17 05:38 Dose: 650 mg Albuterol Sulfate (Albuterol Sulfate) 1.25 mg NEB [id number] [facility] Dextrose/Water (Dextrose 50%) 25 gm IVP PRN PRN PRN Reason: HYPOGLYCEMIA PROTOCOL Enoxaparin Sodium (Lovenox) 40 mg SC 0900 [facility] Last Admin: 07/21/17 08:32 Dose: 40 mg Famotidine (Pepcid) 20 mg PO DAILY [facility] Last Admin: 07/21/17 08:32 Dose: 20 mg Glucagon (Glucagon) 1 mg IM PRN PRN PRN Reason: HYPOGLYCEMIA PROTOCOL Glycopyrrolate (Robinul) 0.5 mg PO BID [facility] Last Admin: 07/21/17 08:32 Dose: 0.5 mg Hydralazine HCl (Apresoline) 10 mg SLOW IVP Q6H PRN PRN Reason: SBP Greater Than 170 Last Admin: 07/20/17 20:43 Dose: 10 mg Piperacillin Sod/Tazobactam (Sod 3.375 gm/ Sodium Chloride) 100 mls @ 200 mls/ hr IVPB Q6HR [facility] Last Admin: 07/21/17 05:33 Dose: 100 mls Dextrose/Water (D5w) 1,000 mls @ 0 mls/hr IV INF PRN; As Directed PRN Reason: HYPOGLYCEMIA PROTOCOL Sodium Chloride (1/2 Normal Saline) 1,000 mls @ 75 mls/hr IV .[id number] [facility] Last Admin: 07/21/17 07:41 Dose: Not Given Insulin Detemir 20 units/ (Miscellaneous Medication) 0.2 mls @ 0 mls/hr SC BID [facility] Last Admin: 07/21/17 08:31 Dose: 0.2 mls Insulin Human Lispro (Humalog) 0 units SC .MILD SLIDING SCALE PRN; Protocol PRN Reason: MILD SLIDING SCALE Last Admin: 07/20/17 18:33 Dose: 5 unit Methylprednisolone Sodium Succinate (Solu-Medrol) 20 mg IVP 0000,0800,1600 [facility] Last Admin: 07/21/17 08:30 Dose: 20 mg Metoclopramide HCl (Reglan) 10 mg PO ACHS [facility] Last Admin: 07/21/17 08:32 Dose: 10 mg Sodium Chloride (Flush - Normal Saline) 10 ml IVF Q12HR [facility] Last Admin: 07/21/17 08:31 Dose: 10 ml Sodium Chloride (Flush - Normal Saline) 10 ml IVF PRN PRN PRN Reason: Saline Flush
[2017-07-21] MEDS: Dextrose 50% Abboject 50 ML SYRINGE IVP PRN ×2 (11:21→17:53)
[2017-07-21] MEDS: hydrALAZINE 20 MG/ML VIAL SLOW IVP PRN (13:14)
[2017-07-21] MEDS: Albuterol Sulfate 1.25 MG/3 ML NEB NEB SCH (14:59)
[2017-07-21] MEDS: Dextrose 5% in Water 1,000 ML IV SCH (21:05)
[2017-07-22] MEDS: Albuterol Sulfate 1.25 MG/3 ML NEB NEB SCH ×3 (03:56→15:33)
[2017-07-22] MEDS: Dextrose 5% in Water 1,000 ML IV SCH (06:31)
[2017-07-22] MEDS: Piperacillin/Tazobactam 3.375 GM in Sodium Chloride 0.9% 100 ML IVPB SCH ×3 (06:47→16:47)
--- NOTE | 2017-07-22 07:02 | CON ---
DATE OF CONSULTATION: 07/21/2017 CONSULTING PHYSICIAN: Dr. Reis REASON FOR CONSULTATION: Hypernatremia. REASON FOR ADMISSION: Cough and congestion. HISTORY OF PRESENT ILLNESS: This is a 77-year-old female with history of CVA, dysphagia, hypertensio n, diabetes who came to the hospital with a cough and congestion and was found to have hypernatremia and acute kidney injury. Nephrology is consulted. PAST MEDICAL HISTORY: Positive for diabetes, hypertension, dysphagia, CVA. PAST SURGICAL HISTORY: PEG tube placement, hysterectomy. HOME MEDICATIONS: Coenzyme Q10, thiamine, Zoloft, Senokot, Florastor, Celexa, Sulfa, Zofran, DuoNeb, Humalog, Pepcid, diclofenac, Lipitor, aspirin, Norvasc, magnesium. ALLERGIES: No known drug allergies. SOCIAL HISTORY: No smoking, alcohol or drug abuse. FAMILY HISTORY: Positive for diabetes. REVIEW OF SYSTEMS: The following complete review of systems was negative, unless otherwise mentioned in the HPI or below: Constitutional: Weight loss or gain, ability to conduct usual activities. Skin: Rash, itching. Eyes: Double vision, pain. ENT/Mouth: Nose bleeding, neck stiffness, pain, tenderness. Cardiovascular: Palpitations, dyspnea on exertion, orthopnea. Respiratory: Shortness of breath, wheezing, cough, hemoptysis, fever or night sweats. Gastrointestinal: Poor appetite, abdominal pain, heartburn, nausea, vomiting, constipation, or diarrhea. Genitourinary: Urgency, frequency, dysuria, nocturia. Musculoskeletal: Pain, swelling. Neurologic/Psychiatric: Anxiety, depression. Allergy/Immunologic: Skin rash, bleeding tendency. PHYSICAL EXAMINATION: GENERAL: This is a thin-built female in no apparent distress. VITAL SIGNS: Temperature 97.9, pulse 60, respiratory rate 20, blood pressure 137/61. HEENT: Atraumatic, normocephalic. Oral mucosa is dry. NECK: Supple. CARDIOVASCULAR: S1, S2. Rate and rhythm regular. RESPIRATORY: Clear. ABDOMEN: Soft. MUSCULOSKELETAL: 1+ edema. DERMATOLOGIC: No skin rash. NEUROLOGIC: Alert, awake. PSYCHIATRIC: Normal mood and affect. LABORATORY: Sodium is 153, potassium 3.8, chloride 115, BUN 25, 0.5. ASSESSMENT AND PLAN: 1. Acute kidney injury. Continue on hydration as tolerated. 2. Hypernatremia with hyperchloremia. Recommend free water through PEG tube and also change IV flui ds to D5 water. 3. Hyperglycemia, better now, we will change IV fluids to D5. 4. Edema, controlled. 5. Hypertension, stable. 6. Anemia. Continue free water supplementation and we will follow.
[2017-07-22 08:08] LABS: #Lymphocytes 1.2 thou/uL (1.20-3.40); #Monocytes 0.2 thou/uL (0.11-0.59); #Neutrophils 6.3 thou/uL (1.40-6.50); %Basophils 0.2 % (0.0-1.0); %Eosinophils 0.5 % (0.0-10.0); %Lymphocytes 15.1 % (21.0-51.0); %Neutrophils 81.2 % (42.0-75.0); Hemoglobin 9.1 g/dL (12.0-16.0); Mean Corpuscular HGB CONC 31.1 g/dL (32.0-36.0); Mean Corpuscular Hemoglobin 29.8 pg (27.0-31.0); Mean Corpuscular Volume 95.7 fl (81.0-99.0); Mean Platelet Volume 9.4 fL (7.4-10.4); Platelet Count 245 thou/uL (130-400); RBC Distribution Width 17.8 % (11.5-14.5); Red Blood Cell (RBC) Count 3.05 mill/uL (4.20-5.40); White Blood Cell (WBC) Count 7.8 thou/uL (4.8-10.8)
[2017-07-22 08:24] LABS: Anion Gap 14 mmol/L (10-20); BUN (Urea Nitrogen) 24 mg/dL (9.8-20.1); Calc. Creatinine Clearance 38 mL/min (70-130); Calcium 8.8 mg/dL (7.8-10.44); Carbon Dioxide 27 mmol/L (23-31); Chloride 109 mmol/L (98-107); Estimated GFR-MDRD 66; Glucose 232 mg/dL (83-110); Potassium 4.2 mmol/L (3.5-5.1); Sodium 146 mmol/L (136-145)
[2017-07-22] MEDS: Famotidine 20 MG TAB PO SCH (09:51)
[2017-07-22] MEDS: Insulin Detemir 100 UNITS/ML 10 UNITS in Pre-Filled Syringe 1 EACH SC SCH ×2 (09:51→21:08)
[2017-07-22] MEDS: Metoclopramide HCl 10 MG TAB PO SCH ×4 (09:51→21:08)
[2017-07-22] MEDS: Glycopyrrolate 1 MG TAB PO SCH ×2 (09:51→21:07)
[2017-07-22] MEDS: Enoxaparin Sodium 40 MG/0.4 ML SYRINGE SC SCH (09:51)
[2017-07-22] MEDS ORDERED: Dextrose 5% in Water 1,000 ML IV SCH (10:15)
--- NOTE | 2017-07-22 10:16 | PDOC.PN ---
- Subjective Encounter Start Date: 07/22/17 Encounter Start Time: 08:15 Subjective: awake, no distress -: not oriented - Objective Resuscitation Status: Resuscitation Status DNR:Do Not Resuscitate MAR Reviewed: Yes Vital Signs & Weight: Vital Signs (12 hours) Temp 07/22/17 04:00 94.4 F L Weight Admit Weight 113 lb 11.2 oz Weight 113 lb 11.2 oz I&O: 07/21/17 07/22/17 07/23/17 06:59 06:59 06:59 Intake Total 2685 2180 Balance 2685 2180 Result Diagrams: 07/22/17 07:46 07/22/17 07:46 Additional Labs: Accuchecks 07/22/17 07/21/17 07/21/17 04:31 21:01 18:33 POC Glucose 179 H 123 H 133 H 07/21/17 07/21/17 07/21/17 16:43 12:23 11:16 POC Glucose 59 L* 84 Less than 35 L* Phys Exam - Physical Examination HEENT: PERRLA, moist MMs Neck: no JVD, supple Respiratory: no wheezing rhonchi++ Cardiovascular: RRR, no significant murmur Gastrointestinal: soft, non-tender, positive bowel sounds peg+ Musculoskeletal: pulses present, edema present Neurological: non-focal, moves all 4 limbs Dx/Plan (1) Aspiration pneumonia Code(s): J69.0 - PNEUMONITIS DUE TO INHALATION OF FOOD AND VOMIT Status: Acute Qualifiers: Aspiration pneumonia type: due to regurgitated food Laterality: bilateral (2) CVA, old, dysphagia Code(s): I69.391 - DYSPHAGIA FOLLOWING CEREBRAL INFARCTION Status: Chronic (3) Normocytic anemia Code(s): D64.9 - ANEMIA, UNSPECIFIED Status: Chronic (4) Protein-calorie malnutrition, moderate Code(s): E44.0 - MODERATE PROTEIN-CALORIE MALNUTRITION Status: Chronic (5) DM2 (diabetes mellitus, type 2) Status: Chronic Qualifiers: Diabetes mellitus complication status: with hyperglycemia Diabetes mellitus nursing home insulin use: with maintenance groundskeeper use Qualified Code(s): E11.65 - Type 2 diabetes mellitus with hyperglycemia; Z79.4 - snf (current) use of insulin; Z79.4 - alum operator (current) use of insulin; Z79.4 - alum operator ( current) use of insulin; Z79.4 - alum operator (current) use of insulin Comment: is labile with fingerstick dipping into 40's to 179 (6) HLD (hyperlipidemia) Code(s): E78.5 - HYPERLIPIDEMIA, UNSPECIFIED Status: Chronic Qualifiers: Hyperlipidemia type: unspecified (7) HTN (hypertension) Code(s): I10 - ESSENTIAL (PRIMARY) HYPERTENSION Status: Chronic Qualifiers: Hypertension type: essential hypertension Qualified Code(s): I10 - Essential (primary) hypertension (8) Physical deconditioning Code(s): R53.81 - OTHER MALAISE Status: Chronic (9) Hypernatremia Code(s): E87.0 - HYPEROSMOLALITY AND HYPERNATREMIA Status: Acute (10) Sepsis Code(s): A41.9 - SEPSIS, UNSPECIFIED ORGANISM Status: Acute Qualifiers: Sepsis type: sepsis due to unspecified organism Qualified Code(s): A41.9 - Sepsis, unspecified organism - Plan switch her to 1/2 ns, no d5w supply -: sod is getting corrected, increase free water via peg to qid at 200ml -: continue peg feeding, zosyn and iv steroids -: has deconditioning, poor prognosis -: temp this am is 94, bear hugger * . Review of Systems - Medications/Allergies Allergies/Adverse Reactions: Allergies Allergy/AdvReac Type Severity Reaction Status Date / Time No Known Drug Allergies Allergy Verified 07/13/17 22:36 Medications: Current Medications Acetaminophen (Tylenol Elixir) 650 mg PER TUBE Q4H PRN PRN Reason: Headache/Fever or Pain Last Admin: 07/20/17 05:38 Dose: 650 mg Albuterol Sulfate (Albuterol Sulfate) 1.25 mg NEB [id number] [facility] Last Admin: 07/22/17 09:54 Dose: Not Given Dextrose/Water (Dextrose 50%) 25 gm IVP PRN PRN PRN Reason: HYPOGLYCEMIA PROTOCOL Last Admin: 07/21/17 17:53 Dose: 25 gm Enoxaparin Sodium (Lovenox) 40 mg SC 0900 [facility] Last Admin: 07/22/17 09:51 Dose: 40 mg Famotidine (Pepcid) 20 mg PO DAILY [facility] Last Admin: 07/22/17 09:51 Dose: 20 mg Glucagon (Glucagon) 1 mg IM PRN PRN PRN Reason: HYPOGLYCEMIA PROTOCOL Glycopyrrolate (Robinul) 0.5 mg PO BID [facility] Last Admin: 07/22/17 09:51 Dose: 0.5 mg Hydralazine HCl (Apresoline) 10 mg SLOW IVP Q6H PRN PRN Reason: SBP Greater Than 170 Last Admin: 07/21/17 13:14 Dose: 10 mg Piperacillin Sod/Tazobactam (Sod 3.375 gm/ Sodium Chloride) 100 mls @ 200 mls/ hr IVPB Q6HR [facility] Last Admin: 07/22/17 06:47 Dose: 100 mls Dextrose/Water (D5w) 1,000 mls @ 0 mls/hr IV INF PRN; As Directed PRN Reason: HYPOGLYCEMIA PROTOCOL Insulin Detemir 10 units/ (Miscellaneous Medication) 0.1 mls @ 0 mls/hr SC BID [facility] Last Admin: 07/22/17 09:51 Dose: Not Given Dextrose/Water (D5w) 1,000 mls @ 50 mls/hr IV .Q20H [facility] Insulin Human Lispro (Humalog) 0 units SC .MILD SLIDING SCALE PRN; Protocol PRN Reason: MILD SLIDING SCALE Last Admin: 07/20/17 18:33 Dose: 5 unit Methylprednisolone Sodium Succinate (Solu-Medrol) 20 mg IVP 0000,0800,1600 [facility] Last Admin: 07/22/17 09:50 Dose: 20 mg Metoclopramide HCl (Reglan) 10 mg PO ACHS [facility] Last Admin: 07/22/17 09:51 Dose: 10 mg Sodium Chloride (Flush - Normal Saline) 10 ml IVF Q12HR [facility] Last Admin: 07/22/17 09:52 Dose: 10 ml Sodium Chloride (Flush - Normal Saline) 10 ml IVF PRN PRN PRN Reason: Saline Flush
[2017-07-22] MEDS: HumaLOG 300 UNITS/3 ML VIAL SC PRN ×2 (12:48→16:48)
[2017-07-22] MEDS: Sodium Chloride 0.45% 1,000 ML IV SCH (12:50)
--- NOTE | 2017-07-22 22:24 | PRG ---
DATE OF SERVICE: 07/22/2017 OBJECTIVE: GENERAL: This is an elderly female, in no apparent distress. VITAL SIGNS: Temperature 97.5, pulse 77, respiratory rate 20, blood pressure 170/80. HEENT: Atraumatic, normocephalic. Oral mucosa is moist. NECK: Supple, no masses. CARDIOVASCULAR: S1, S2 heard. Rate and rhythm regular. RESPIRATORY: Clear. GASTROINTESTINAL: Abdomen is soft. MUSCULOSKELETAL: No tenderness. No edema. DERMATOLOGIC: No skin rash. NEUROLOGIC: Alert and awake. PSYCHIATRIC: Mood and affect normal. LABORATORY DATA: BUN is 24. Sodium is 146. ASSESSMENT AND PLAN: 1. Acute kidney injury, better. 2. Hypernatremia, better with free water supplementation. 3. Edema. 4. Hypertension. 5. Anemia. Overall, labs are getting better. We will follow.
[2017-07-23] MEDS: Albuterol Sulfate 1.25 MG/3 ML NEB NEB SCH ×4 (00:15→22:28)
[2017-07-23] MEDS: Sodium Chloride 0.45% 1,000 ML IV SCH ×2 (02:46→07:55)
[2017-07-23] MEDS: Piperacillin/Tazobactam 3.375 GM in Sodium Chloride 0.9% 100 ML IVPB SCH ×4 (02:55→20:12)
[2017-07-23] MEDS: Enoxaparin Sodium 40 MG/0.4 ML SYRINGE SC SCH (07:43)
[2017-07-23] MEDS: hydrALAZINE 20 MG/ML VIAL SLOW IVP PRN (07:44)
[2017-07-23] MEDS: Famotidine 20 MG TAB PO SCH (07:57)
[2017-07-23] MEDS: Metoclopramide HCl 10 MG TAB PO SCH ×4 (07:57→20:12)
[2017-07-23] MEDS: Insulin Detemir 100 UNITS/ML 10 UNITS in Pre-Filled Syringe 1 EACH SC SCH ×2 (07:57→20:14)
[2017-07-23] MEDS: Glycopyrrolate 1 MG TAB PO SCH ×2 (08:37→20:12)
[2017-07-23 09:07] LABS: Anion Gap 13 mmol/L (10-20); BUN (Urea Nitrogen) 25 mg/dL (9.8-20.1); Calc. Creatinine Clearance 37 mL/min (70-130); Calcium 8.6 mg/dL (7.8-10.44); Carbon Dioxide 28 mmol/L (23-31); Chloride 107 mmol/L (98-107); Estimated GFR-MDRD 63; Glucose 181 mg/dL (83-110); Potassium 4.3 mmol/L (3.5-5.1); Sodium 144 mmol/L (136-145)
[2017-07-23 09:08] LABS: #Basophils 0.1 thou/uL (0.0-0.2); #Eosinphils 0.1 thou/uL (0.0-0.7); #Lymphocytes 1.2 thou/uL (1.20-3.40); #Monocytes 0.2 thou/uL (0.11-0.59); #Neutrophils 7.7 thou/uL (1.40-6.50); %Basophils 0.9 % (0.0-1.0); %Eosinophils 0.6 % (0.0-10.0); %Lymphocytes 12.6 % (21.0-51.0); %Monocytes 2.3 % (0.0-10.0); %Neutrophils 83.7 % (42.0-75.0); Hemoglobin 9.8 g/dL (12.0-16.0); Mean Corpuscular HGB CONC 32.5 g/dL (32.0-36.0); Mean Corpuscular Hemoglobin 31.2 pg (27.0-31.0); Mean Corpuscular Volume 96.2 fl (81.0-99.0); Mean Platelet Volume 9.5 fL (7.4-10.4); Platelet Count 309 thou/uL (130-400); Red Blood Cell (RBC) Count 3.13 mill/uL (4.20-5.40); White Blood Cell (WBC) Count 9.2 thou/uL (4.8-10.8)
--- NOTE | 2017-07-23 10:18 | PRG ---
DATE OF SERVICE: 07/23/2017 SUBJECTIVE: Patient was seen and examined at bedside and overnight events noted. Patient denies any shortness of breath or chest pain or palpitation. No history of nausea or vomiting or diarrhea or fever or chills or cramps. OBJECTIVE: GENERAL: This is a thin built female in no apparent distress. VITAL SIGNS: Temperature 97.3, pulse 60, respiratory rate 18, blood pressure 169/87. HEENT: Atraumatic, normocephalic. Oral mucosa is moist. NECK: Supple. CARDIOVASCULAR: S1, S2 heard. Rate and rhythm regular. RESPIRATORY: Clear to auscultation. GASTROINTESTINAL: Abdomen is soft. MUSCULOSKELETAL: No tenderness. No edema. DERMATOLOGIC: No skin rash. NEUROLOGIC: Alert and awake and oriented x3. No focal neurologic deficits. Moving all the extremities. PSYCHIATRIC: Mood and affect normal. LABORATORY DATA: Potassium is 4.3, BUN is 25, creatinine is 1.03. ASSESSMENT AND PLAN: 1. Acute kidney injury. Renal function is much better. 2. Hypernatremia. Sodium level is normal. Continue free water as tolerated. 3. Edema, controlled. 4. Hypertension. 5. Anemia. 6. Continue blood pressure medicine and titrate as needed. Continue free water supplementation. MTDD
--- NOTE | 2017-07-23 10:46 | PDOC.PN ---
- Subjective Encounter Start Date: 07/23/17 Encounter Start Time: 08:15 Subjective: awake, not oriented, communicates verbally -: still on bear hugger - Objective Resuscitation Status: Resuscitation Status DNR:Do Not Resuscitate MAR Reviewed: Yes Vital Signs & Weight: Vital Signs (12 hours) Temp Pulse Resp BP BP Pulse Ox 07/23/17 08:00 97.3 F L 86 18 201/105 H 94 L 07/23/17 07:44 82 201/105 H 07/23/17 00:15 73 16 92 L Weight Admit Weight 113 lb 11.2 oz Weight 113 lb 11.2 oz I&O: 07/22/17 07/23/17 07/24/17 06:59 06:59 06:59 Intake Total 2180 1675 Balance 2180 1675 Result Diagrams: 07/23/17 08:41 07/23/17 08:41 Additional Labs: Accuchecks 07/23/17 07/22/17 07/22/17 03:21 20:59 16:36 POC Glucose 208 H 253 H 319 H 07/22/17 11:44 POC Glucose 287 H Phys Exam - Physical Examination HEENT: PERRLA, sclera anicteric Neck: no JVD, supple Respiratory: no wheezing, no rales decreased air entry b/l Cardiovascular: RRR, no significant murmur Gastrointestinal: soft, no distention, positive bowel sounds peg+ Musculoskeletal: pulses present, edema present Neurological: non-focal, moves all 4 limbs Dx/Plan (1) Aspiration pneumonia Code(s): J69.0 - PNEUMONITIS DUE TO INHALATION OF FOOD AND VOMIT Status: Acute Qualifiers: Aspiration pneumonia type: due to regurgitated food Laterality: bilateral (2) CVA, old, dysphagia Code(s): I69.391 - DYSPHAGIA FOLLOWING CEREBRAL INFARCTION Status: Chronic (3) Normocytic anemia Code(s): D64.9 - ANEMIA, UNSPECIFIED Status: Chronic (4) Protein-calorie malnutrition, moderate Code(s): E44.0 - MODERATE PROTEIN-CALORIE MALNUTRITION Status: Chronic (5) DM2 (diabetes mellitus, type 2) Status: Chronic Qualifiers: Diabetes mellitus complication status: with hyperglycemia Diabetes mellitus retirement insulin use: with retirement use Qualified Code(s): E11.65 - Type 2 diabetes mellitus with hyperglycemia; Z79.4 - detention (current) use of insulin; Z79.4 - intermediate card tender (current) use of insulin; Z79.4 - intermediate card tender ( current) use of insulin; Z79.4 - intermediate card tender (current) use of insulin Comment: is labile with fingerstick dipping into 40's to 179 (6) HLD (hyperlipidemia) Code(s): E78.5 - HYPERLIPIDEMIA, UNSPECIFIED Status: Chronic Qualifiers: Hyperlipidemia type: unspecified (7) HTN (hypertension) Code(s): I10 - ESSENTIAL (PRIMARY) HYPERTENSION Status: Chronic Qualifiers: Hypertension type: essential hypertension Qualified Code(s): I10 - Essential (primary) hypertension (8) Physical deconditioning Code(s): R53.81 - OTHER MALAISE Status: Chronic (9) Hypernatremia Code(s): E87.0 - HYPEROSMOLALITY AND HYPERNATREMIA Status: Resolved (10) Sepsis Code(s): A41.9 - SEPSIS, UNSPECIFIED ORGANISM Status: Acute Qualifiers: Sepsis type: sepsis due to unspecified organism Qualified Code(s): A41.9 - Sepsis, unspecified organism - Plan temp of 95 last 24hrs -: is on zosyn -: reviewed CT, has b/l severe asp pna -: sodium is better at 146 -: may dc solumedrol * . Review of Systems - Medications/Allergies Allergies/Adverse Reactions: Allergies Allergy/AdvReac Type Severity Reaction Status Date / Time No Known Drug Allergies Allergy Verified 07/13/17 22:36 Medications: Current Medications Acetaminophen (Tylenol Elixir) 650 mg PER TUBE Q4H PRN PRN Reason: Headache/Fever or Pain Last Admin: 07/20/17 05:38 Dose: 650 mg Albuterol Sulfate (Albuterol Sulfate) 1.25 mg NEB [id number] [facility] Last Admin: 07/23/17 00:15 Dose: 1.25 mg Dextrose/Water (Dextrose 50%) 25 gm IVP PRN PRN PRN Reason: HYPOGLYCEMIA PROTOCOL Last Admin: 07/21/17 17:53 Dose: 25 gm Enoxaparin Sodium (Lovenox) 40 mg SC 0900 [facility] Last Admin: 07/23/17 07:43 Dose: 40 mg Famotidine (Pepcid) 20 mg PO DAILY [facility] Last Admin: 07/23/17 07:57 Dose: 20 mg Glucagon (Glucagon) 1 mg IM PRN PRN PRN Reason: HYPOGLYCEMIA PROTOCOL Glycopyrrolate (Robinul) 0.5 mg PO BID [facility] Last Admin: 07/23/17 08:37 Dose: 0.5 mg Hydralazine HCl (Apresoline) 10 mg SLOW IVP Q6H PRN PRN Reason: SBP Greater Than 170 Last Admin: 07/23/17 07:44 Dose: 10 mg Dextrose/Water (D5w) 1,000 mls @ 0 mls/hr IV INF PRN; As Directed PRN Reason: HYPOGLYCEMIA PROTOCOL Insulin Detemir 10 units/ (Miscellaneous Medication) 0.1 mls @ 0 mls/hr SC BID [facility] Last Admin: 07/23/17 07:57 Dose: 0.1 mls Sodium Chloride (1/2 Normal Saline) 1,000 mls @ 75 mls/hr IV .[id number] [facility] Last Admin: 07/23/17 07:55 Dose: 1,000 mls Piperacillin Sod/Tazobactam (Sod 3.375 gm/ Sodium Chloride) 100 mls @ 200 mls/ hr IVPB 0200,0800,1400,2000 [facility] Last Admin: 07/23/17 07:41 Dose: 100 mls Insulin Human Lispro (Humalog) 0 units SC .MILD SLIDING SCALE PRN; Protocol PRN Reason: MILD SLIDING SCALE Last Admin: 07/22/17 16:48 Dose: 5 unit Methylprednisolone Sodium Succinate (Solu-Medrol) 20 mg IVP 0000,0800,1600 [facility] Last Admin: 07/23/17 07:57 Dose: 20 mg Metoclopramide HCl (Reglan) 10 mg PO ACHS [facility] Last Admin: 07/23/17 07:57 Dose: 10 mg Sodium Chloride (Flush - Normal Saline) 10 ml IVF Q12HR [facility] Last Admin: 07/23/17 08:03 Dose: 10 ml Sodium Chloride (Flush - Normal Saline) 10 ml IVF PRN PRN PRN Reason: Saline Flush
--- NOTE | 2017-07-23 10:52 | CT ---
CT OF THE CHEST WITHOUT CONTRAST: Comparison: None. History: Aspiration pneumonia. Technique: Multiple contiguous axial images were obtained in a CT of the chest without contrast. Elian nal reformats were performed. FINDINGS: The heart is enlarged. Calcifications are seen in the coronal arteries and aorta. No obvious hilar or mediastinal lymphadenopathy are appreciated on this limited noncontrast examination. There are small bilateral pleural effusions. Dependent atelectasis is seen in both lung bases. There is also atelectasis which is not as confluent in the lingula and right middle lobe. Emphysematous jade nges are seen in the apices. No obvious infiltrates are seen in the more anterior lungs. There is a calcified pleural plaque in the right thorax. No calcified plaques are seen on the left. A gastrostomy tube is seen in the stomach. A calcified gallstones is seen in the gallbladder. Degener ative changes are seen in the spine. IMPRESSION: 1. Bilateral pleural effusions with adjacent atelectasis. 2. Cardiomegaly. 3. Calcified right pleural plaque. 4. Cholelithiasis. POS: [facility]
[2017-07-23] MEDS: HumaLOG 300 UNITS/3 ML VIAL SC PRN (12:26)
[2017-07-24] MEDS: hydrALAZINE 20 MG/ML VIAL SLOW IVP PRN (01:02)
[2017-07-24] MEDS: Piperacillin/Tazobactam 3.375 GM in Sodium Chloride 0.9% 100 ML IVPB SCH ×4 (01:02→19:35)
[2017-07-24] MEDS: Melatonin 3 MG TAB PER TUBE PRN ×2 (01:02→20:44)
[2017-07-24 06:17] LABS: Anion Gap 16 mmol/L (10-20); BUN (Urea Nitrogen) 24 mg/dL (9.8-20.1); Calc. Creatinine Clearance 39 mL/min (70-130); Carbon Dioxide 28 mmol/L (23-31); Chloride 106 mmol/L (98-107); Estimated GFR-MDRD 66; Glucose 180 mg/dL (83-110); Potassium 3.9 mmol/L (3.5-5.1); Sodium 146 mmol/L (136-145)
[2017-07-24] MEDS: HumaLOG 300 UNITS/3 ML VIAL SC PRN ×2 (06:22→12:47)
[2017-07-24] MEDS: Albuterol Sulfate 1.25 MG/3 ML NEB NEB SCH ×3 (07:38→21:34)
[2017-07-24] MEDS ORDERED: Sodium Chloride 0.9% 10 ML ONE (07:45)
[2017-07-24] MEDS: Metoclopramide HCl 10 MG TAB PO SCH ×4 (08:03→20:43)
[2017-07-24] MEDS: Insulin Detemir 100 UNITS/ML 10 UNITS in Pre-Filled Syringe 1 EACH SC SCH ×2 (09:13→20:43)
[2017-07-24] MEDS: Enoxaparin Sodium 40 MG/0.4 ML SYRINGE SC SCH (09:14)
[2017-07-24] MEDS: Famotidine 20 MG TAB PO SCH (09:15)
[2017-07-24] MEDS: Glycopyrrolate 1 MG TAB PO SCH ×2 (10:01→20:43)
[2017-07-24] MEDS: Acetaminophen 650 MG/20.3 ML UDCUP PER TUBE PRN (10:39)
--- NOTE | 2017-07-24 11:05 | PDOC.PN ---
- Subjective Encounter Start Date: 07/24/17 Encounter Start Time: 09:00 Subjective: awake, not in distress -: responds to verbal stimuli, moving all extremities but very slow - Objective Resuscitation Status: Resuscitation Status DNR:Do Not Resuscitate MAR Reviewed: Yes Vital Signs & Weight: Vital Signs (12 hours) Temp Pulse Resp BP BP Pulse Ox 07/24/17 08:39 97.2 F L 84 20 142/82 H 94 L 07/24/17 07:38 78 16 93 L 07/24/17 06:50 94.9 F L 67 20 159/69 H 07/24/17 01:02 79 177/91 H 07/24/17 00:22 95.1 F L 83 20 165/80 H 93 L Weight Admit Weight 113 lb 11.2 oz Weight 113 lb 11.2 oz I&O: 07/23/17 07/24/17 07/25/17 06:59 06:59 06:59 Intake Total 1675 2330 Balance 1675 2330 Result Diagrams: 07/23/17 08:41 07/24/17 04:11 Additional Labs: Accuchecks 07/24/17 07/23/17 07/23/17 06:08 20:15 16:13 POC Glucose 242 H 103 143 H 07/23/17 11:21 POC Glucose 211 H Phys Exam - Physical Examination HEENT: PERRLA, moist MMs Neck: no JVD, supple Respiratory: no wheezing, no rales Cardiovascular: RRR, no significant murmur Gastrointestinal: soft, non-tender, positive bowel sounds Musculoskeletal: pulses present, edema present Neurological: non-focal, moves all 4 limbs Dx/Plan (1) Aspiration pneumonia Code(s): J69.0 - PNEUMONITIS DUE TO INHALATION OF FOOD AND VOMIT Status: Acute Qualifiers: Aspiration pneumonia type: due to regurgitated food Laterality: bilateral (2) CVA, old, dysphagia Code(s): I69.391 - DYSPHAGIA FOLLOWING CEREBRAL INFARCTION Status: Chronic (3) Normocytic anemia Code(s): D64.9 - ANEMIA, UNSPECIFIED Status: Chronic (4) Protein-calorie malnutrition, moderate Code(s): E44.0 - MODERATE PROTEIN-CALORIE MALNUTRITION Status: Chronic (5) DM2 (diabetes mellitus, type 2) Status: Chronic Qualifiers: Diabetes mellitus complication status: with hyperglycemia Diabetes mellitus mcc insulin use: with mcc use Qualified Code(s): E11.65 - Type 2 diabetes mellitus with hyperglycemia; Z79.4 - long term acute care registered nurse (current) use of insulin; Z79.4 - long term acute care registered nurse (current) use of insulin; Z79.4 - shelter ( current) use of insulin; Z79.4 - shelter (current) use of insulin Comment: is labile with fingerstick dipping into 40's to 179 (6) HLD (hyperlipidemia) Code(s): E78.5 - HYPERLIPIDEMIA, UNSPECIFIED Status: Chronic Qualifiers: Hyperlipidemia type: unspecified (7) HTN (hypertension) Code(s): I10 - ESSENTIAL (PRIMARY) HYPERTENSION Status: Chronic Qualifiers: Hypertension type: essential hypertension Qualified Code(s): I10 - Essential (primary) hypertension (8) Physical deconditioning Code(s): R53.81 - OTHER MALAISE Status: Chronic (9) Hypernatremia Code(s): E87.0 - HYPEROSMOLALITY AND HYPERNATREMIA Status: Resolved (10) Sepsis Code(s): A41.9 - SEPSIS, UNSPECIFIED ORGANISM Status: Resolved Qualifiers: Sepsis type: sepsis due to unspecified organism Qualified Code(s): A41.9 - Sepsis, unspecified organism - Plan lasix q12h iv, gentle diuresis -: is on zosyn -: PT to mobilize pt as tolerated, oob to chair/amb -: dm is still labile -: poor prognosis mcc * . Review of Systems - Medications/Allergies Allergies/Adverse Reactions: Allergies Allergy/AdvReac Type Severity Reaction Status Date / Time No Known Drug Allergies Allergy Verified 07/13/17 22:36 Medications: Current Medications Acetaminophen (Tylenol Elixir) 650 mg PER TUBE Q4H PRN PRN Reason: Headache/Fever or Pain Last Admin: 07/24/17 10:39 Dose: 650 mg Albuterol Sulfate (Albuterol Sulfate) 1.25 mg NEB [id number] AMEENA Last Admin: 07/24/17 07:38 Dose: 1.25 mg Dextrose/Water (Dextrose 50%) 25 gm IVP PRN PRN PRN Reason: HYPOGLYCEMIA PROTOCOL Last Admin: 07/21/17 17:53 Dose: 25 gm Enoxaparin Sodium (Lovenox) 40 mg SC 0900 AMEENA Last Admin: 07/24/17 09:14 Dose: 40 mg Famotidine (Pepcid) 20 mg PO DAILY [facility] Last Admin: 07/24/17 09:15 Dose: 20 mg Furosemide (Lasix) 20 mg SLOW IVP 0600,1400 [facility] Glucagon (Glucagon) 1 mg IM PRN PRN PRN Reason: HYPOGLYCEMIA PROTOCOL Glycopyrrolate (Robinul) 0.5 mg PO BID [facility] Last Admin: 07/24/17 10:01 Dose: 0.5 mg Hydralazine HCl (Apresoline) 10 mg SLOW IVP Q6H PRN PRN Reason: SBP Greater Than 170 Last Admin: 07/24/17 01:02 Dose: 10 mg Dextrose/Water (D5w) 1,000 mls @ 0 mls/hr IV INF PRN; As Directed PRN Reason: HYPOGLYCEMIA PROTOCOL Insulin Detemir 10 units/ (Miscellaneous Medication) 0.1 mls @ 0 mls/hr SC BID [facility] Last Admin: 07/24/17 09:13 Dose: 0.1 mls Piperacillin Sod/Tazobactam (Sod 3.375 gm/ Sodium Chloride) 100 mls @ 200 mls/ hr IVPB 0200,0800,1400,2000 [facility] Last Admin: 07/24/17 08:05 Dose: 100 mls Insulin Human Lispro (Humalog) 0 units SC .MILD SLIDING SCALE PRN; Protocol PRN Reason: MILD SLIDING SCALE Last Admin: 07/24/17 06:22 Dose: 3 unit Melatonin (Melatonin) 3 mg PER TUBE HSPRN PRN PRN Reason: Insomnia Last Admin: 07/24/17 01:02 Dose: 3 mg Metoclopramide HCl (Reglan) 10 mg PO ACHS [facility] Last Admin: 07/24/17 10:39 Dose: 10 mg Sodium Chloride (Flush - Normal Saline) 10 ml IVF Q12HR [facility] Last Admin: 07/24/17 09:15 Dose: Not Given Sodium Chloride (Flush - Normal Saline) 10 ml IVF PRN PRN PRN Reason: Saline Flush
[2017-07-24] MEDS: Furosemide 20 MG/2 ML VIAL SLOW IVP SCH (13:18)
[2017-07-25] MEDS: Piperacillin/Tazobactam 3.375 GM in Sodium Chloride 0.9% 100 ML IVPB SCH ×4 (02:52→20:38)
[2017-07-25 04:50] LABS: Anion Gap 16 mmol/L (10-20); BUN (Urea Nitrogen) 22 mg/dL (9.8-20.1); Calc. Creatinine Clearance 39 mL/min (70-130); Calcium 8.9 mg/dL (7.8-10.44); Carbon Dioxide 26 mmol/L (23-31); Chloride 105 mmol/L (98-107); Estimated GFR-MDRD 68; Glucose 124 mg/dL (83-110); Potassium 4.8 mmol/L (3.5-5.1); Sodium 142 mmol/L (136-145)
[2017-07-25] MEDS: Furosemide 20 MG/2 ML VIAL SLOW IVP SCH (05:29)
[2017-07-25] MEDS: HumaLOG 300 UNITS/3 ML VIAL SC PRN ×4 (05:46→20:45)
--- NOTE | 2017-07-25 06:15 | PRG ---
DATE OF SERVICE: 07/24/2017 SUBJECTIVE: Patient was seen and examined at bedside and overnight events noted. Patient denies any shortness of breath or chest pain or palpitation. No history of nausea or vomiting or diarrhea or f ever or chills or cramps. OBJECTIVE: GENERAL: This is a well-built female in no apparent distress. VITAL SIGNS: Temperature 94.1, pulse 84, respiratory rate 20, blood pressure 160/80. HEENT: Atraumatic, normocephalic. Oral mucosa is moist. NECK: Supple. CARDIOVASCULAR: S1, S2 heard. Rate and rhythm regular. RESPIRATORY: Clear to auscultation. GASTROINTESTINAL: Abdomen is soft. MUSCULOSKELETAL: No tenderness. No edema. DERMATOLOGIC: No skin rash. NEUROLOGIC: Alert and awake and oriented x3. No focal neurologic deficits. Moving all the extremit ies. PSYCHIATRIC: Mood and affect normal. LABORATORY DATA: Sodium is 146, potassium is 3.9, BUN is 24, creatinine is 0.9. ASSESSMENT AND PLAN: 1. Acute kidney injury. Renal function is stable. 2. Hypernatremia, continue free water supplementation. 3. Edema . 4. Hypertension. 5. Anemia. Plan is to continue free water supplementation as tolerated. We will follow.
[2017-07-25] MEDS: Albuterol Sulfate 1.25 MG/3 ML NEB NEB SCH ×2 (06:20→13:42)
[2017-07-25] MEDS: Enoxaparin Sodium 40 MG/0.4 ML SYRINGE SC SCH (08:52)
[2017-07-25] MEDS: Glycopyrrolate 1 MG TAB PO SCH ×2 (08:53→20:44)
[2017-07-25] MEDS: Insulin Detemir 100 UNITS/ML 10 UNITS in Pre-Filled Syringe 1 EACH SC SCH ×2 (08:54→20:38)
[2017-07-25] MEDS: Metoclopramide HCl 10 MG TAB PO SCH ×4 (08:55→20:45)
--- NOTE | 2017-07-25 10:30 | PDOC.PN ---
- Subjective Encounter Start Date: 07/25/17 Encounter Start Time: 08:00 Subjective: awake, not in distress -: feels warm to touch, no fever - Objective Resuscitation Status: Resuscitation Status DNR:Do Not Resuscitate MAR Reviewed: Yes Vital Signs & Weight: Vital Signs (12 hours) Temp Pulse Resp BP Pulse Ox 07/25/17 08:00 98.3 F 73 18 170/72 H 92 L 07/25/17 06:20 75 16 94 L 07/25/17 05:26 71 20 176/98 H Weight Admit Weight 113 lb 11.2 oz Weight 113 lb 11.2 oz I&O: 07/24/17 07/25/17 07/26/17 06:59 06:59 06:59 Intake Total 2330 3860 Balance 2330 3860 Result Diagrams: 07/23/17 08:41 07/25/17 03:36 Additional Labs: Accuchecks 07/25/17 07/24/17 07/24/17 05:24 20:43 16:35 POC Glucose 192 H 103 112 H 07/24/17 11:44 POC Glucose 217 H Phys Exam - Physical Examination HEENT: PERRLA, moist MMs Neck: no JVD, supple Respiratory: no wheezing, no rales Cardiovascular: RRR, no significant murmur Gastrointestinal: soft, non-tender, positive bowel sounds Musculoskeletal: pulses present, edema present Neurological: non-focal, moves all 4 limbs Dx/Plan (1) Aspiration pneumonia Code(s): J69.0 - PNEUMONITIS DUE TO INHALATION OF FOOD AND VOMIT Status: Acute Qualifiers: Aspiration pneumonia type: due to regurgitated food Laterality: bilateral (2) CVA, old, dysphagia Code(s): I69.391 - DYSPHAGIA FOLLOWING CEREBRAL INFARCTION Status: Chronic (3) Normocytic anemia Code(s): D64.9 - ANEMIA, UNSPECIFIED Status: Chronic (4) Protein-calorie malnutrition, moderate Code(s): E44.0 - MODERATE PROTEIN-CALORIE MALNUTRITION Status: Chronic (5) DM2 (diabetes mellitus, type 2) Status: Chronic Qualifiers: Diabetes mellitus complication status: with hyperglycemia Diabetes mellitus terminal gauger insulin use: with nursing home use Qualified Code(s): E11.65 - Type 2 diabetes mellitus with hyperglycemia; Z79.4 - termite inspector (current) use of insulin; Z79.4 - assisted (current) use of insulin; Z79.4 - assisted ( current) use of insulin; Z79.4 - termite inspector (current) use of insulin Comment: is labile with fingerstick dipping into 40's to 179 (6) HLD (hyperlipidemia) Code(s): E78.5 - HYPERLIPIDEMIA, UNSPECIFIED Status: Chronic Qualifiers: Hyperlipidemia type: unspecified (7) HTN (hypertension) Code(s): I10 - ESSENTIAL (PRIMARY) HYPERTENSION Status: Chronic Qualifiers: Hypertension type: essential hypertension Qualified Code(s): I10 - Essential (primary) hypertension (8) Physical deconditioning Code(s): R53.81 - OTHER MALAISE Status: Chronic (9) Hypernatremia Code(s): E87.0 - HYPEROSMOLALITY AND HYPERNATREMIA Status: Resolved (10) Sepsis Code(s): A41.9 - SEPSIS, UNSPECIFIED ORGANISM Status: Resolved Qualifiers: Sepsis type: sepsis due to unspecified organism Qualified Code(s): A41.9 - Sepsis, unspecified organism - Plan increase lasix to 40mg iv q12h -: tmax of 94, bld cs x4 is -ve -: is on zosyn -: is on levemir 10u bid, dm is labile -: PT to mobilize pt as tolerated * . Review of Systems - Medications/Allergies Allergies/Adverse Reactions: Allergies Allergy/AdvReac Type Severity Reaction Status Date / Time No Known Drug Allergies Allergy Verified 07/13/17 22:36 Medications: Current Medications Acetaminophen (Tylenol Elixir) 650 mg PER TUBE Q4H PRN PRN Reason: Headache/Fever or Pain Last Admin: 07/24/17 10:39 Dose: 650 mg Albuterol Sulfate (Albuterol Sulfate) 1.25 mg NEB [id number] AMEENA Last Admin: 07/25/17 06:20 Dose: 1.25 mg Dextrose/Water (Dextrose 50%) 25 gm IVP PRN PRN PRN Reason: HYPOGLYCEMIA PROTOCOL Last Admin: 07/21/17 17:53 Dose: 25 gm Enoxaparin Sodium (Lovenox) 40 mg SC 0900 AMEENA Last Admin: 07/25/17 08:52 Dose: 40 mg Famotidine (Pepcid) 20 mg PO DAILY [facility] Last Admin: 07/24/17 09:15 Dose: 20 mg Furosemide (Lasix) 40 mg SLOW IVP 0600,1400 [facility] Glucagon (Glucagon) 1 mg IM PRN PRN PRN Reason: HYPOGLYCEMIA PROTOCOL Glycopyrrolate (Robinul) 0.5 mg PO BID [facility] Last Admin: 07/25/17 08:53 Dose: 0.5 mg Hydralazine HCl (Apresoline) 10 mg SLOW IVP Q6H PRN PRN Reason: SBP Greater Than 170 Last Admin: 07/24/17 01:02 Dose: 10 mg Dextrose/Water (D5w) 1,000 mls @ 0 mls/hr IV INF PRN; As Directed PRN Reason: HYPOGLYCEMIA PROTOCOL Insulin Detemir 10 units/ (Miscellaneous Medication) 0.1 mls @ 0 mls/hr SC BID [facility] Last Admin: 07/25/17 08:54 Dose: 0.1 mls Piperacillin Sod/Tazobactam (Sod 3.375 gm/ Sodium Chloride) 100 mls @ 200 mls/ hr IVPB 0200,0800,1400,2000 [facility] Last Admin: 07/25/17 08:56 Dose: 100 mls Insulin Human Lispro (Humalog) 0 units SC .MILD SLIDING SCALE PRN; Protocol PRN Reason: MILD SLIDING SCALE Last Admin: 07/25/17 05:46 Dose: 2 unit Melatonin (Melatonin) 3 mg PER TUBE HSPRN PRN PRN Reason: Insomnia Last Admin: 07/24/17 20:44 Dose: 3 mg Metoclopramide HCl (Reglan) 10 mg PO ACHS [facility] Last Admin: 07/25/17 08:55 Dose: 10 mg Sodium Chloride (Flush - Normal Saline) 10 ml IVF Q12HR [facility] Last Admin: 07/25/17 09:24 Dose: Not Given Sodium Chloride (Flush - Normal Saline) 10 ml IVF PRN PRN PRN Reason: Saline Flush
[2017-07-25] MEDS: Famotidine 20 MG TAB PO SCH (12:17)
[2017-07-25] MEDS: Furosemide 40 MG/4 ML VIAL SLOW IVP SCH (15:36)
[2017-07-25] MEDS: Melatonin 3 MG TAB PER TUBE PRN (20:44)
[2017-07-26] MEDS: Albuterol Sulfate 1.25 MG/3 ML NEB NEB SCH ×4 (00:52→22:52)
[2017-07-26] MEDS: Piperacillin/Tazobactam 3.375 GM in Sodium Chloride 0.9% 100 ML IVPB SCH ×2 (02:21→10:56)
[2017-07-26] MEDS: Dextrose 50% Abboject 50 ML SYRINGE IVP PRN (05:45)
[2017-07-26] MEDS: Furosemide 40 MG/4 ML VIAL SLOW IVP SCH ×2 (06:03→17:39)
[2017-07-26] MEDS: Metoclopramide HCl 10 MG TAB PO SCH ×4 (08:00→20:12)
[2017-07-26 09:01] LABS: Anion Gap 13 mmol/L (10-20); BUN (Urea Nitrogen) 22 mg/dL (9.8-20.1); Calc. Creatinine Clearance 36 mL/min (70-130); Calcium 9.9 mg/dL (7.8-10.44); Carbon Dioxide 32 mmol/L (23-31); Chloride 103 mmol/L (98-107); Estimated GFR-MDRD 61; Glucose 94 mg/dL (83-110); Potassium 4.6 mmol/L (3.5-5.1); Sodium 143 mmol/L (136-145)
[2017-07-26] MEDS: Insulin Detemir 100 UNITS/ML 10 UNITS in Pre-Filled Syringe 1 EACH SC SCH ×2 (09:30→20:17)
--- NOTE | 2017-07-26 10:45 | RAD ---
CHEST ONE VIEW UPRIGHT PORTABLE: HISTORY: A 77-year-old female with history of follow-up pleural effusions and infiltrate. COMPARISON: 07/20/2017. FINDINGS: Fairly large bilateral pleural effusions with some bilateral vascular congestion and interstitial and alveolar edema changes. Atherosclerosis of the aorta with ectasia. There does appear to be some ca rdiomegaly. IMPRESSION: Cardiomegaly with vascular congestion and interstitial and alveolar edema and large bilateral pleural effusions showing little change from prior CT 07/23/2017 and plain film from 07/20/2017. Continued short-term follow-up for clearing or stability. POS: DEWEY
[2017-07-26] MEDS: Glycopyrrolate 1 MG TAB PO SCH ×2 (10:57→20:12)
[2017-07-26] MEDS: Famotidine 20 MG TAB PO SCH (11:07)
[2017-07-26] MEDS: Enoxaparin Sodium 40 MG/0.4 ML SYRINGE SC SCH ×2 (11:10→11:52)
--- NOTE | 2017-07-26 11:56 | PDOC.PN ---
- Subjective Encounter Start Date: 07/26/17 Encounter Start Time: 09:20 Subjective: awake, no sob - Objective Resuscitation Status: Resuscitation Status DNR:Do Not Resuscitate MAR Reviewed: Yes Vital Signs & Weight: Vital Signs (12 hours) Pulse Resp BP Pulse Ox 07/26/17 08:52 63 15 96 07/26/17 08:00 63 18 163/103 H 96 07/26/17 00:53 94 L 07/26/17 00:52 94 L Weight Admit Weight 113 lb 11.2 oz Weight 113 lb 11.2 oz I&O: 07/25/17 07/26/17 07/27/17 06:59 06:59 06:59 Intake Total 3860 4690 Balance 3860 4690 Result Diagrams: 07/23/17 08:41 07/26/17 08:19 Additional Labs: Accuchecks 07/26/17 07/26/17 07/26/17 10:41 06:48 05:10 POC Glucose 100 127 H 53 L* 07/25/17 07/25/17 07/25/17 20:44 16:38 11:45 POC Glucose 220 H 257 H 288 H Phys Exam - Physical Examination HEENT: PERRLA, moist MMs Neck: no JVD, supple Respiratory: no wheezing rales++ Cardiovascular: RRR, no significant murmur Gastrointestinal: soft, no distention, positive bowel sounds peg+ Musculoskeletal: pulses present, edema present Neurological: non-focal, moves all 4 limbs Dx/Plan (1) Aspiration pneumonia Code(s): J69.0 - PNEUMONITIS DUE TO INHALATION OF FOOD AND VOMIT Status: Acute Qualifiers: Aspiration pneumonia type: due to regurgitated food Laterality: bilateral (2) CVA, old, dysphagia Code(s): I69.391 - DYSPHAGIA FOLLOWING CEREBRAL INFARCTION Status: Chronic (3) Normocytic anemia Code(s): D64.9 - ANEMIA, UNSPECIFIED Status: Chronic (4) Protein-calorie malnutrition, moderate Code(s): E44.0 - MODERATE PROTEIN-CALORIE MALNUTRITION Status: Chronic (5) DM2 (diabetes mellitus, type 2) Status: Chronic Qualifiers: Diabetes mellitus complication status: with hyperglycemia Diabetes mellitus terminal gauger insulin use: with mcc use Qualified Code(s): E11.65 - Type 2 diabetes mellitus with hyperglycemia; Z79.4 - correction (current) use of insulin; Z79.4 - correction (current) use of insulin; Z79.4 - correction ( current) use of insulin; Z79.4 - correction (current) use of insulin Comment: is labile with fingerstick dipping into 53-257 (6) HLD (hyperlipidemia) Code(s): E78.5 - HYPERLIPIDEMIA, UNSPECIFIED Status: Chronic Qualifiers: Hyperlipidemia type: unspecified (7) HTN (hypertension) Code(s): I10 - ESSENTIAL (PRIMARY) HYPERTENSION Status: Chronic Qualifiers: Hypertension type: essential hypertension Qualified Code(s): I10 - Essential (primary) hypertension (8) Physical deconditioning Code(s): R53.81 - OTHER MALAISE Status: Chronic (9) Hypernatremia Code(s): E87.0 - HYPEROSMOLALITY AND HYPERNATREMIA Status: Resolved (10) Sepsis Code(s): A41.9 - SEPSIS, UNSPECIFIED ORGANISM Status: Resolved Qualifiers: Sepsis type: sepsis due to unspecified organism Qualified Code(s): A41.9 - Sepsis, unspecified organism - Plan is on lasix 40mg q12h -: not much change on cxr reg effusions -: continue diuresis, watch for electrolytes -: has labile dm, on tube feeds -: dc zosyn, terminal gauger prognosis poor * . Review of Systems - Medications/Allergies Allergies/Adverse Reactions: Allergies Allergy/AdvReac Type Severity Reaction Status Date / Time No Known Drug Allergies Allergy Verified 07/13/17 22:36 Medications: Current Medications Acetaminophen (Tylenol Elixir) 650 mg PER TUBE Q4H PRN PRN Reason: Headache/Fever or Pain Last Admin: 07/24/17 10:39 Dose: 650 mg Albuterol Sulfate (Albuterol Sulfate) 1.25 mg NEB [id number] AMEENA Last Admin: 07/26/17 08:52 Dose: 1.25 mg Dextrose/Water (Dextrose 50%) 25 gm IVP PRN PRN PRN Reason: HYPOGLYCEMIA PROTOCOL Last Admin: 07/26/17 05:45 Dose: 25 gm Enoxaparin Sodium (Lovenox) 40 mg SC 0900 AMEENA Last Admin: 07/26/17 11:52 Dose: Not Given Famotidine (Pepcid) 20 mg PO DAILY [facility] Last Admin: 07/26/17 11:07 Dose: 20 mg Furosemide (Lasix) 40 mg SLOW IVP 0600,1400 [facility] Last Admin: 07/26/17 06:03 Dose: 40 mg Glucagon (Glucagon) 1 mg IM PRN PRN PRN Reason: HYPOGLYCEMIA PROTOCOL Glycopyrrolate (Robinul) 0.5 mg PO BID [facility] Last Admin: 07/26/17 10:57 Dose: 0.5 mg Hydralazine HCl (Apresoline) 10 mg SLOW IVP Q6H PRN PRN Reason: SBP Greater Than 170 Last Admin: 07/24/17 01:02 Dose: 10 mg Dextrose/Water (D5w) 1,000 mls @ 0 mls/hr IV INF PRN; As Directed PRN Reason: HYPOGLYCEMIA PROTOCOL Insulin Detemir 10 units/ (Miscellaneous Medication) 0.1 mls @ 0 mls/hr SC BID [facility] Last Admin: 07/26/17 09:30 Dose: Not Given Insulin Human Lispro (Humalog) 0 units SC .MILD SLIDING SCALE PRN; Protocol PRN Reason: MILD SLIDING SCALE Last Admin: 07/25/17 20:45 Dose: 3 unit Melatonin (Melatonin) 3 mg PER TUBE HSPRN PRN PRN Reason: Insomnia Last Admin: 07/25/17 20:44 Dose: 3 mg Metoclopramide HCl (Reglan) 10 mg PO ACHS [facility] Last Admin: 07/26/17 11:07 Dose: 10 mg Sodium Chloride (Flush - Normal Saline) 10 ml IVF Q12HR [facility] Last Admin: 07/26/17 11:10 Dose: 10 ml Sodium Chloride (Flush - Normal Saline) 10 ml IVF PRN PRN PRN Reason: Saline Flush
[2017-07-26] MEDS: Melatonin 3 MG TAB PER TUBE PRN (20:12)
[2017-07-27] MEDS: Furosemide 40 MG/4 ML VIAL SLOW IVP SCH ×2 (06:21→14:29)
[2017-07-27] MEDS: HumaLOG 300 UNITS/3 ML VIAL SC PRN (06:23)
[2017-07-27] MEDS: Albuterol Sulfate 1.25 MG/3 ML NEB NEB SCH ×3 (07:01→23:39)
[2017-07-27] MEDS: Enoxaparin Sodium 40 MG/0.4 ML SYRINGE SC SCH (08:11)
[2017-07-27] MEDS: Insulin Detemir 100 UNITS/ML 10 UNITS in Pre-Filled Syringe 1 EACH SC SCH ×2 (08:11→20:07)
[2017-07-27] MEDS: Glycopyrrolate 1 MG TAB PO SCH ×2 (08:12→20:04)
[2017-07-27] MEDS: Metoclopramide HCl 10 MG TAB PO SCH ×4 (08:12→20:04)
[2017-07-27] MEDS: Famotidine 20 MG TAB PO SCH (08:12)
--- NOTE | 2017-07-27 11:57 | PDOC.PN ---
- Subjective Encounter Start Date: 07/27/17 Encounter Start Time: 10:30 Subjective: awake, not in distress -: not oriented this am - Objective Resuscitation Status: Resuscitation Status DNR:Do Not Resuscitate MAR Reviewed: Yes Vital Signs & Weight: Vital Signs (12 hours) Temp Pulse Resp BP Pulse Ox 07/27/17 08:27 97 F L 70 18 137/79 97 07/27/17 07:01 54 L 14 96 Weight Admit Weight 113 lb 11.2 oz Weight 113 lb 11.2 oz I&O: 07/26/17 07/27/17 07/28/17 06:59 06:59 06:59 Intake Total 4690 2185 Balance 4690 2185 Result Diagrams: 07/23/17 08:41 07/26/17 08:19 Additional Labs: Accuchecks 07/27/17 07/26/17 07/26/17 04:26 19:43 15:41 POC Glucose 381 H 247 H 172 H Phys Exam - Physical Examination HEENT: PERRLA, sclera anicteric Neck: no JVD, supple Respiratory: no wheezing, no rales Cardiovascular: RRR, no significant murmur Gastrointestinal: soft, non-tender, positive bowel sounds peg+ Musculoskeletal: no edema, pulses present Neurological: non-focal, moves all 4 limbs Dx/Plan (1) pleural effusions Status: Acute Comment: b/l (2) Aspiration pneumonia Code(s): J69.0 - PNEUMONITIS DUE TO INHALATION OF FOOD AND VOMIT Status: Resolved Qualifiers: Aspiration pneumonia type: due to regurgitated food Laterality: bilateral (3) CVA, old, dysphagia Code(s): I69.391 - DYSPHAGIA FOLLOWING CEREBRAL INFARCTION Status: Chronic (4) Normocytic anemia Code(s): D64.9 - ANEMIA, UNSPECIFIED Status: Chronic (5) Protein-calorie malnutrition, moderate Code(s): E44.0 - MODERATE PROTEIN-CALORIE MALNUTRITION Status: Chronic (6) DM2 (diabetes mellitus, type 2) Status: Chronic Qualifiers: Diabetes mellitus complication status: with hyperglycemia Diabetes mellitus longterm insulin use: with securities analyst use Qualified Code(s): E11.65 - Type 2 diabetes mellitus with hyperglycemia; Z79.4 - water carter (current) use of insulin; Z79.4 - water carter (current) use of insulin; Z79.4 - correction ( current) use of insulin; Z79.4 - water carter (current) use of insulin Comment: is labile with fingerstick dipping into 53-257 (7) HLD (hyperlipidemia) Code(s): E78.5 - HYPERLIPIDEMIA, UNSPECIFIED Status: Chronic Qualifiers: Hyperlipidemia type: unspecified (8) HTN (hypertension) Code(s): I10 - ESSENTIAL (PRIMARY) HYPERTENSION Status: Chronic Qualifiers: Hypertension type: essential hypertension Qualified Code(s): I10 - Essential (primary) hypertension (9) Physical deconditioning Code(s): R53.81 - OTHER MALAISE Status: Chronic (10) Hypernatremia Code(s): E87.0 - HYPEROSMOLALITY AND HYPERNATREMIA Status: Resolved (11) Sepsis Code(s): A41.9 - SEPSIS, UNSPECIFIED ORGANISM Status: Resolved Qualifiers: Sepsis type: sepsis due to unspecified organism Qualified Code(s): A41.9 - Sepsis, unspecified organism - Plan is awaiting placement to go to snf with hospice -: daughter agreed for hospice last evening -: is on iv lasix for mod pleural effusions b/l -: off zosyn from 48hrs -: runs temp of 95-98 degrees * . poor prognosis with risk of asp and severe deconditoning. May dc anytime placement is ready with hospice. Review of Systems - Medications/Allergies Allergies/Adverse Reactions: Allergies Allergy/AdvReac Type Severity Reaction Status Date / Time No Known Drug Allergies Allergy Verified 07/13/17 22:36 Medications: Current Medications Acetaminophen (Tylenol Elixir) 650 mg PER TUBE Q4H PRN PRN Reason: Headache/Fever or Pain Last Admin: 07/24/17 10:39 Dose: 650 mg Albuterol Sulfate (Albuterol Sulfate) 1.25 mg NEB [id number] AMEENA Last Admin: 07/27/17 07:01 Dose: 1.25 mg Dextrose/Water (Dextrose 50%) 25 gm IVP PRN PRN PRN Reason: HYPOGLYCEMIA PROTOCOL Last Admin: 07/26/17 05:45 Dose: 25 gm Enoxaparin Sodium (Lovenox) 40 mg SC 0900 [facility] Last Admin: 07/27/17 08:11 Dose: 40 mg Famotidine (Pepcid) 20 mg PO DAILY [facility] Last Admin: 07/27/17 08:12 Dose: 20 mg Furosemide (Lasix) 40 mg SLOW IVP 0600,1400 [facility] Last Admin: 07/27/17 06:21 Dose: 40 mg Glucagon (Glucagon) 1 mg IM PRN PRN PRN Reason: HYPOGLYCEMIA PROTOCOL Glycopyrrolate (Robinul) 0.5 mg PO BID [facility] Last Admin: 07/27/17 08:12 Dose: 0.5 mg Hydralazine HCl (Apresoline) 10 mg SLOW IVP Q6H PRN PRN Reason: SBP Greater Than 170 Last Admin: 07/24/17 01:02 Dose: 10 mg Dextrose/Water (D5w) 1,000 mls @ 0 mls/hr IV INF PRN; As Directed PRN Reason: HYPOGLYCEMIA PROTOCOL Insulin Detemir 10 units/ (Miscellaneous Medication) 0.1 mls @ 0 mls/hr SC BID [facility] Last Admin: 07/27/17 08:11 Dose: 0.1 mls Insulin Human Lispro (Humalog) 0 units SC .MILD SLIDING SCALE PRN; Protocol PRN Reason: MILD SLIDING SCALE Last Admin: 07/27/17 06:23 Dose: 6 unit Melatonin (Melatonin) 3 mg PER TUBE HSPRN PRN PRN Reason: Insomnia Last Admin: 07/26/17 20:12 Dose: 3 mg Metoclopramide HCl (Reglan) 10 mg PO ACHS [facility] Last Admin: 07/27/17 08:12 Dose: 10 mg Sodium Chloride (Flush - Normal Saline) 10 ml IVF Q12HR [facility] Last Admin: 07/27/17 08:12 Dose: 10 ml Sodium Chloride (Flush - Normal Saline) 10 ml IVF PRN PRN PRN Reason: Saline Flush
[2017-07-28 05:12] LABS: #Basophils 0.1 thou/uL (0.0-0.2); #Eosinphils 0.1 thou/uL (0.0-0.7); #Monocytes 0.3 thou/uL (0.11-0.59); #Neutrophils 5.9 thou/uL (1.40-6.50); %Basophils 0.9 % (0.0-1.0); %Lymphocytes 14.1 % (21.0-51.0); %Monocytes 4.3 % (0.0-10.0); %Neutrophils 79.8 % (42.0-75.0); Hemoglobin 10.4 g/dL (12.0-16.0); Mean Corpuscular HGB CONC 31.5 g/dL (32.0-36.0); Mean Corpuscular Hemoglobin 30.3 pg (27.0-31.0); Mean Corpuscular Volume 96.2 fl (81.0-99.0); Platelet Count 427 thou/uL (130-400); RBC Distribution Width 19.7 % (11.5-14.5); Red Blood Cell (RBC) Count 3.42 mill/uL (4.20-5.40); White Blood Cell (WBC) Count 7.4 thou/uL (4.8-10.8)
[2017-07-28 05:34] LABS: ALT (SGPT) 26 U/L (8-55); AST (SGOT) 30 U/L (5-34); Albumin 3.1 g/dL (3.4-4.8); Alkaline Phosphatase 133 U/L (40-150); Anion Gap 15 mmol/L (10-20); BUN (Urea Nitrogen) 35 mg/dL (9.8-20.1); Bilirubin, Total 0.3 mg/dL (0.2-1.2); Calc. Creatinine Clearance 29 mL/min (70-130); Calcium 9.9 mg/dL (7.8-10.44); Carbon Dioxide 32 mmol/L (23-31); Chloride 97 mmol/L (98-107); Estimated GFR-MDRD 47; Globulin 3.9 g/dL (2.4-3.5); Glucose 114 mg/dL (83-110); Potassium 5.3 mmol/L (3.5-5.1); Sodium 139 mmol/L (136-145)
[2017-07-28] MEDS: Furosemide 40 MG/4 ML VIAL SLOW IVP SCH ×2 (05:52→15:02)
[2017-07-28] MEDS: Albuterol Sulfate 1.25 MG/3 ML NEB NEB SCH ×3 (07:14→23:54)
[2017-07-28] MEDS: Glycopyrrolate 1 MG TAB PO SCH ×2 (08:11→20:44)
[2017-07-28] MEDS: Famotidine 20 MG TAB PO SCH (08:11)
[2017-07-28] MEDS: Enoxaparin Sodium 40 MG/0.4 ML SYRINGE SC SCH (08:11)
[2017-07-28] MEDS: Metoclopramide HCl 10 MG TAB PO SCH ×4 (08:11→20:44)
[2017-07-28] MEDS: Insulin Detemir 100 UNITS/ML 10 UNITS in Pre-Filled Syringe 1 EACH SC SCH ×2 (08:12→20:46)
[2017-07-28] MEDS: HumaLOG 300 UNITS/3 ML VIAL SC PRN (12:51)
--- NOTE | 2017-07-28 14:53 | PDOC.PN ---
- Subjective Encounter Start Date: 07/28/17 Encounter Start Time: 14:52 Patient seen and examined. No new complaints. No overnight events. No sob reported. - Objective Resuscitation Status: Resuscitation Status DNR:Do Not Resuscitate MAR Reviewed: Yes Vital Signs & Weight: Vital Signs (12 hours) Temp Pulse Resp BP Pulse Ox 07/28/17 13:58 76 16 07/28/17 08:00 95.9 F L 76 16 127/69 94 L 07/28/17 07:14 70 14 Weight Admit Weight 113 lb 11.2 oz Weight 113 lb 11.2 oz I&O: 07/27/17 07/28/17 07/29/17 06:59 06:59 06:59 Intake Total 2185 1184 90 Balance 2185 1184 90 Result Diagrams: 07/28/17 03:36 07/28/17 03:36 Additional Labs: Accuchecks 07/28/17 07/28/17 07/27/17 11:37 05:12 20:07 POC Glucose 262 H 121 H 96 Phys Exam - Physical Examination Constitutional: NAD HEENT: sclera anicteric Neck: supple Respiratory: no wheezing, no rales Cardiovascular: RRR Gastrointestinal: soft Musculoskeletal: no edema Psychiatric: normal affect Skin: no rash Dx/Plan (1) pleural effusions Status: Acute Comment: b/l (2) CVA, old, dysphagia Code(s): I69.391 - DYSPHAGIA FOLLOWING CEREBRAL INFARCTION Status: Chronic (3) Protein-calorie malnutrition, moderate Code(s): E44.0 - MODERATE PROTEIN-CALORIE MALNUTRITION Status: Chronic (4) Hypernatremia Code(s): E87.0 - HYPEROSMOLALITY AND HYPERNATREMIA Status: Resolved (5) Hypothermia Code(s): T68.XXXA - HYPOTHERMIA, INITIAL ENCOUNTER Status: Acute Comment: suspect central hypothermia...TFT's ok, no clinical sepsis. (6) DM2 (diabetes mellitus, type 2) Status: Chronic Qualifiers: Diabetes mellitus complication status: with hyperglycemia Diabetes mellitus manager intermediate insulin use: with retirement use Qualified Code(s): E11.65 - Type 2 diabetes mellitus with hyperglycemia; Z79.4 - longterm (current) use of insulin; Z79.4 - termite exterminator (current) use of insulin; Z79.4 - longterm ( current) use of insulin; Z79.4 - longterm (current) use of insulin Comment: is labile with fingerstick dipping into [phone] (7) HLD (hyperlipidemia) Code(s): E78.5 - HYPERLIPIDEMIA, UNSPECIFIED Status: Chronic Qualifiers: Hyperlipidemia type: unspecified (8) HTN (hypertension) Code(s): I10 - ESSENTIAL (PRIMARY) HYPERTENSION Status: Chronic Qualifiers: Hypertension type: essential hypertension Qualified Code(s): I10 - Essential (primary) hypertension (9) Physical deconditioning Code(s): R53.81 - OTHER MALAISE Status: Chronic (10) Aspiration pneumonia Code(s): J69.0 - PNEUMONITIS DUE TO INHALATION OF FOOD AND VOMIT Status: Resolved Qualifiers: Aspiration pneumonia type: due to regurgitated food Laterality: bilateral - Plan * . will stop lasix. awaiting placement.
[2017-07-28] MEDS: Melatonin 3 MG TAB PER TUBE PRN (20:44)
[2017-07-29] MEDS: Albuterol Sulfate 1.25 MG/3 ML NEB NEB SCH ×3 (07:07→23:05)
[2017-07-29] MEDS: Glycopyrrolate 1 MG TAB PO SCH ×2 (08:21→21:55)
[2017-07-29] MEDS: Metoclopramide HCl 10 MG TAB PO SCH ×4 (08:22→21:55)
[2017-07-29] MEDS: Famotidine 20 MG TAB PO SCH (08:22)
[2017-07-29] MEDS: Enoxaparin Sodium 40 MG/0.4 ML SYRINGE SC SCH (08:22)
[2017-07-29] MEDS: Insulin Detemir 100 UNITS/ML 10 UNITS in Pre-Filled Syringe 1 EACH SC SCH ×2 (08:23→21:53)
[2017-07-29 09:52] LABS: Anion Gap 13 mmol/L (10-20); BUN (Urea Nitrogen) 39 mg/dL (9.8-20.1); Calc. Creatinine Clearance 26 mL/min (70-130); Calcium 10.2 mg/dL (7.8-10.44); Carbon Dioxide 31 mmol/L (23-31); Chloride 101 mmol/L (98-107); Estimated GFR-MDRD 42; Glucose 68 mg/dL (83-110); Magnesium 2.3 mg/dL (1.6-2.6); Potassium 5.3 mmol/L (3.5-5.1); Sodium 140 mmol/L (136-145)
--- NOTE | 2017-07-29 13:51 | PDOC.PN ---
- Subjective Encounter Start Date: 07/29/17 Encounter Start Time: 13:49 pt non communicative - Objective Resuscitation Status: Resuscitation Status DNR:Do Not Resuscitate MAR Reviewed: Yes Vital Signs & Weight: Vital Signs (12 hours) Temp Pulse Resp BP Pulse Ox 07/29/17 08:00 94.9 F L 62 18 134/76 95 07/29/17 07:07 80 16 Weight Admit Weight 113 lb 11.2 oz Weight 113 lb 11.2 oz I&O: 07/28/17 07/29/17 07/30/17 06:59 06:59 06:59 Intake Total 1184 1290 180 Balance 1184 1290 180 Result Diagrams: 07/28/17 03:36 07/29/17 09:15 Additional Labs: Accuchecks 07/29/17 07/29/17 07/28/17 06:03 05:19 20:14 POC Glucose 86 43 L* 198 H 07/28/17 15:46 POC Glucose 114 H Phys Exam - Physical Examination Constitutional: NAD HEENT: sclera anicteric Neck: supple Respiratory: no wheezing, no rales Cardiovascular: RRR Gastrointestinal: soft Musculoskeletal: no edema Neurological: non-focal, moves all 4 limbs Psychiatric: normal affect, A&O x 3 Skin: no rash Dx/Plan (1) pleural effusions Status: Acute Comment: b/l (2) CVA, old, dysphagia Code(s): I69.391 - DYSPHAGIA FOLLOWING CEREBRAL INFARCTION Status: Chronic (3) Protein-calorie malnutrition, moderate Code(s): E44.0 - MODERATE PROTEIN-CALORIE MALNUTRITION Status: Chronic (4) Hypernatremia Code(s): E87.0 - HYPEROSMOLALITY AND HYPERNATREMIA Status: Resolved (5) Hypothermia Code(s): T68.XXXA - HYPOTHERMIA, INITIAL ENCOUNTER Status: Acute Comment: suspect central hypothermia...TFT's ok, no clinical sepsis. (6) DM2 (diabetes mellitus, type 2) Status: Chronic Qualifiers: Diabetes mellitus complication status: with hyperglycemia Diabetes mellitus terminal carman insulin use: with terminal carman use Qualified Code(s): E11.65 - Type 2 diabetes mellitus with hyperglycemia; Z79.4 - truck terminal manager (current) use of insulin; Z79.4 - detention (current) use of insulin; Z79.4 - truck terminal manager ( current) use of insulin; Z79.4 - detention (current) use of insulin Comment: is labile with fingerstick dipping into [phone] (7) HLD (hyperlipidemia) Code(s): E78.5 - HYPERLIPIDEMIA, UNSPECIFIED Status: Chronic Qualifiers: Hyperlipidemia type: unspecified (8) HTN (hypertension) Code(s): I10 - ESSENTIAL (PRIMARY) HYPERTENSION Status: Chronic Qualifiers: Hypertension type: essential hypertension Qualified Code(s): I10 - Essential (primary) hypertension (9) Physical deconditioning Code(s): R53.81 - OTHER MALAISE Status: Chronic (10) Aspiration pneumonia Code(s): J69.0 - PNEUMONITIS DUE TO INHALATION OF FOOD AND VOMIT Status: Resolved Qualifiers: Aspiration pneumonia type: due to regurgitated food Laterality: bilateral - Plan * . Free water supplementation as tolerated via PEG tube Monitor accuchecks NH placement with hospice DC planning
[2017-07-29] MEDS: Melatonin 3 MG TAB PER TUBE PRN (21:55)
[2017-07-30] MEDS: HumaLOG 300 UNITS/3 ML VIAL SC PRN (05:18)
[2017-07-30] MEDS: Albuterol Sulfate 1.25 MG/3 ML NEB NEB SCH (07:28)
[2017-07-30] MEDS: Enoxaparin Sodium 40 MG/0.4 ML SYRINGE SC SCH (08:33)
[2017-07-30] MEDS: Metoclopramide HCl 10 MG TAB PO SCH ×4 (08:34→21:11)
[2017-07-30] MEDS: Famotidine 20 MG TAB PO SCH (08:34)
[2017-07-30] MEDS: Insulin Detemir 100 UNITS/ML 10 UNITS in Pre-Filled Syringe 1 EACH SC SCH (09:18)
[2017-07-30] MEDS: Glycopyrrolate 1 MG TAB PO SCH ×2 (09:19→21:11)
[2017-07-30] MEDS ORDERED: Albuterol Sulfate 1.25 MG/3 ML NEB NEB PRN (09:29)
--- NOTE | 2017-07-30 12:54 | PDOC.PN ---
- Subjective Encounter Start Date: 07/30/17 Encounter Start Time: 12:53 pt non verbal - Objective Resuscitation Status: Resuscitation Status DNR:Do Not Resuscitate MAR Reviewed: Yes Vital Signs & Weight: Vital Signs (12 hours) Temp Pulse Resp BP Pulse Ox 07/30/17 08:00 97.3 F L 75 20 148/86 H 96 Weight Admit Weight 113 lb 11.2 oz Weight 113 lb 11.2 oz I&O: 07/29/17 07/30/17 07/31/17 06:59 06:59 06:59 Intake Total 1290 3040 Balance 1290 3040 Result Diagrams: 07/28/17 03:36 07/29/17 09:15 Additional Labs: Accuchecks 07/30/17 07/30/17 07/29/17 11:14 04:07 20:29 POC Glucose 107 313 H 200 H 07/29/17 07/29/17 16:01 12:03 POC Glucose 125 H 84 Phys Exam - Physical Examination Constitutional: NAD HEENT: sclera anicteric Neck: supple Respiratory: no wheezing, no rales s1s2 heard Gastrointestinal: soft Musculoskeletal: no edema Neurological: non-focal Deviation from normal: somnolent Skin: no rash Dx/Plan (1) pleural effusions Status: Acute Comment: b/l (2) CVA, old, dysphagia Code(s): I69.391 - DYSPHAGIA FOLLOWING CEREBRAL INFARCTION Status: Chronic (3) Protein-calorie malnutrition, moderate Code(s): E44.0 - MODERATE PROTEIN-CALORIE MALNUTRITION Status: Chronic (4) Hypernatremia Code(s): E87.0 - HYPEROSMOLALITY AND HYPERNATREMIA Status: Resolved (5) Hypothermia Code(s): T68.XXXA - HYPOTHERMIA, INITIAL ENCOUNTER Status: Acute Comment: suspect central hypothermia...TFT's ok, no clinical sepsis. (6) DM2 (diabetes mellitus, type 2) Status: Chronic Qualifiers: Diabetes mellitus complication status: with hyperglycemia Diabetes mellitus fpc insulin use: with termite control representative use Qualified Code(s): E11.65 - Type 2 diabetes mellitus with hyperglycemia; Z79.4 - correction (current) use of insulin; Z79.4 - correction (current) use of insulin; Z79.4 - correction ( current) use of insulin; Z79.4 - correction (current) use of insulin Comment: is labile with fingerstick dipping into [phone] (7) HLD (hyperlipidemia) Code(s): E78.5 - HYPERLIPIDEMIA, UNSPECIFIED Status: Chronic Qualifiers: Hyperlipidemia type: unspecified (8) HTN (hypertension) Code(s): I10 - ESSENTIAL (PRIMARY) HYPERTENSION Status: Chronic Qualifiers: Hypertension type: essential hypertension Qualified Code(s): I10 - Essential (primary) hypertension (9) Physical deconditioning Code(s): R53.81 - OTHER MALAISE Status: Chronic (10) Aspiration pneumonia Code(s): J69.0 - PNEUMONITIS DUE TO INHALATION OF FOOD AND VOMIT Status: Resolved Qualifiers: Aspiration pneumonia type: due to regurgitated food Laterality: bilateral - Plan * . need NH with hospice and [facility] placement DC planning continue supportive care
[2017-07-30] MEDS: Dextrose 50% Abboject 50 ML SYRINGE IVP PRN ×2 (16:50→21:19)
[2017-07-31] MEDS: Enoxaparin Sodium 40 MG/0.4 ML SYRINGE SC SCH (08:53)
[2017-07-31] MEDS: Metoclopramide HCl 10 MG TAB PO SCH ×4 (08:53→21:05)
[2017-07-31] MEDS: Famotidine 20 MG TAB PO SCH (08:56)
[2017-07-31] MEDS: Glycopyrrolate 1 MG TAB PO SCH ×2 (08:57→21:06)
[2017-07-31] MEDS: Insulin Detemir 100 UNITS/ML 5 UNITS in Pre-Filled Syringe SC SCH (11:45)
--- NOTE | 2017-07-31 12:32 | PDOC.PN ---
- Subjective Encounter Start Date: 07/31/17 Encounter Start Time: 09:00 - Objective Resuscitation Status: Resuscitation Status DNR:Do Not Resuscitate MAR Reviewed: Yes Vital Signs & Weight: Vital Signs (12 hours) Temp Pulse Resp BP Pulse Ox 07/31/17 08:00 97.6 F 76 20 07/31/17 07:56 97.6 F 76 20 132/76 93 L Weight Admit Weight 113 lb 11.2 oz Weight 113 lb 11.2 oz I&O: 07/30/17 07/31/17 08/01/17 06:59 06:59 06:59 Intake Total 3040 1890 Balance 3040 1890 Result Diagrams: 07/28/17 03:36 07/29/17 09:15 Additional Labs: Accuchecks 07/31/17 07/31/17 07/31/17 10:57 05:20 00:18 POC Glucose 281 H 130 H 145 H 07/30/17 07/30/17 07/30/17 21:28 21:14 17:24 POC Glucose 212 H 50 L* 169 H 07/30/17 07/27/17 16:47 16:01 POC Glucose 43 L* 135 H Radiology Reviewed by me: Yes Phys Exam - Physical Examination Neck: no nodes, no JVD Respiratory: no wheezing, no rales Cardiovascular: RRR, no significant murmur Gastrointestinal: soft, non-tender Dx/Plan (1) Normocytic anemia Code(s): D64.9 - ANEMIA, UNSPECIFIED Status: Chronic (2) Protein-calorie malnutrition, moderate Code(s): E44.0 - MODERATE PROTEIN-CALORIE MALNUTRITION Status: Chronic (3) Acute worsening of stage 3 chronic kidney disease Code(s): N18.3 - CHRONIC KIDNEY DISEASE, STAGE 3 (MODERATE) Status: Acute Comment: improving (4) Hypothermia Code(s): T68.XXXA - HYPOTHERMIA, INITIAL ENCOUNTER Status: Resolved Comment : suspect central hypothermia...TFT's ok, no clinical sepsis. (5) DM2 (diabetes mellitus, type 2) Status: Chronic Qualifiers: Diabetes mellitus complication status: with hyperglycemia Diabetes mellitus [facility] insulin use: with [facility] use Qualified Code(s): E11.65 - Type 2 diabetes mellitus with hyperglycemia; Z79.4 - assisted (current) use of insulin; Z79.4 - termite control technician (current) use of insulin; Z79.4 - termite control technician ( current) use of insulin; Z79.4 - assisted (current) use of insulin Comment: is labile with fingerstick dipping into [phone] (6) HLD (hyperlipidemia) Code(s): E78.5 - HYPERLIPIDEMIA, UNSPECIFIED Status: Chronic Qualifiers: Hyperlipidemia type: unspecified Qualified Code(s): E78.5 - Hyperlipidemia , unspecified (7) HTN (hypertension) Code(s): I10 - ESSENTIAL (PRIMARY) HYPERTENSION Status: Chronic Qualifiers: Hypertension type: essential hypertension Qualified Code(s): I10 - Essential (primary) hypertension - Plan cont current plan of care, PT/OT, incentive spirometry * . is awaiting placement to go to snf with hospice -: daughter agreed for hospice last WEEK. -: is on iv lasix for mod pleural effusions b/l, RENAL FOLLOWING -: off zosyn for sepsis completed course -: runs temp of 95-98 degrees. - poorly controlled DM, increased levemir yesterday - Discharge Day Encounter end time: 09:35 Review of Systems - Review of Systems Eyes: negative: Pain, Vision Change, Conjunctivae Inflammation, Eyelid Inflammation, Redness, Other ENT: negative: Ear Pain, Ear Discharge, Nose Pain, Nose Discharge, Nose Congestion, Mouth Pain, Mouth Swelling, Throat Pain, Throat Swelling, Other Cardiovascular: negative: chest pain, palpitations, orthopnea, paroxysmal nocturnal dyspnea, edema, light headedness, other Genitourinary: negative: Dysuria, Frequency, Incontinence, Hematuria, Retention , Other - Medications/Allergies Allergies/Adverse Reactions: Allergies Allergy/AdvReac Type Severity Reaction Status Date / Time No Known Drug Allergies Allergy Verified 07/13/17 22:36 Medications: Current Medications Acetaminophen (Tylenol Elixir) 650 mg PER TUBE Q4H PRN PRN Reason: Headache/Fever or Pain Last Admin: 07/24/17 10:39 Dose: 650 mg Albuterol Sulfate (Albuterol Sulfate) 1.25 mg NEB Q6H PRN PRN Reason: SOB &/or Wheezing Dextrose/Water (Dextrose 50%) 25 gm IVP PRN PRN PRN Reason: HYPOGLYCEMIA PROTOCOL Last Admin: 07/30/17 21:19 Dose: 25 gm Enoxaparin Sodium (Lovenox) 40 mg SC 0900 [facility] Last Admin: 07/31/17 08:53 Dose: 40 mg Famotidine (Pepcid) 20 mg PO DAILY [facility] Last Admin: 07/31/17 08:56 Dose: 20 mg Glucagon (Glucagon) 1 mg IM PRN PRN PRN Reason: HYPOGLYCEMIA PROTOCOL Glycopyrrolate (Robinul) 0.5 mg PO BID [facility] Last Admin: 07/31/17 08:57 Dose: 0.5 mg Hydralazine HCl (Apresoline) 10 mg SLOW IVP Q6H PRN PRN Reason: SBP Greater Than 170 Last Admin: 07/24/17 01:02 Dose: 10 mg Dextrose/Water (D5w) 1,000 mls @ 0 mls/hr IV INF PRN; As Directed PRN Reason: HYPOGLYCEMIA PROTOCOL Insulin Detemir 5 units/ (Miscellaneous Medication) 0.05 mls @ 0 mls/hr SC QAM [facility] Insulin Human Lispro (Humalog) 0 units SC .MILD SLIDING SCALE PRN; Protocol PRN Reason: MILD SLIDING SCALE Last Admin: 07/30/17 05:18 Dose: 5 unit Melatonin (Melatonin) 3 mg PER TUBE HSPRN PRN PRN Reason: Insomnia Last Admin: 07/29/17 21:55 Dose: 3 mg Metoclopramide HCl (Reglan) 10 mg PO ACHS [facility] Last Admin: 07/31/17 08:53 Dose: 10 mg Sodium Chloride (Flush - Normal Saline) 10 ml IVF Q12HR [facility] Last Admin: 07/31/17 08:57 Dose: 10 ml Sodium Chloride (Flush - Normal Saline) 10 ml IVF PRN PRN PRN Reason: Saline Flush Last Admin: 07/27/17 14:30 Dose: 10 ml
--- NOTE | 2017-08-01 08:20 | PRG ---
DATE OF SERVICE: 08/01/2017 DNR status. SUBJECTIVE: The patient is seen and examined at bedside. She is able to answer my questions quite pr operly. She follows commands. OBJECTIVE: VITAL SIGNS: Blood pressure is 118/70, pulse is 101, temperature is 97.6, respiration rate is 20, O2 saturation is fluctuated from 90%-93%. HEENT: Head is atraumatic, normocephalic. Pupils are responding to light bilaterally. Sclerae is n onicteric. She has a lot of oral secretions. NECK: Supple, no lymphadenopathy. LUNGS: Few rales at the left base and mid part of the left lung. CARDIOVASCULAR: S1, S2 normal, no S3, no S4. ABDOMEN: Soft, nondistended. There is a PEG tube in place. EXTREMITIES: No clubbing, cyanosis or edema. NEUROLOGIC: She is able to follow my commands. She moves all 4 extremities. She knows the place an d the time. LABORATORY DATA: None. IMPRESSION: 1. Sepsis status post completion of course of Zosyn. 2. Bilateral pleural effusions. 3. Hypertension. 4. Copious amounts of oral secretions. 5. Hyperlipidemia. 6. Protein calorie malnutrition. 7. Chronic kidney disease stage 3. 8. Hypothermia, resolved secondary to sepsis. 9. Diabetes mellitus on long-acting and short-acting insulins. PLAN: We are waiting for hospice services and a final decision about her placement and pillowcase cleaner is working on this issue. We would start her on amitriptyline 10 mg at bedtime to help clear secreti ons slow down. She will continue her feeding through the tube, 6 cans per day plus 45 mL of free yoan er before and after each feeding. We will continue her short-acting and long-acting insulins as befo re.
[2017-08-01] MEDS: Insulin Detemir 100 UNITS/ML 5 UNITS in Pre-Filled Syringe SC SCH (10:11)
[2017-08-01] MEDS: Famotidine 20 MG TAB PO SCH (10:15)
[2017-08-01] MEDS: Glycopyrrolate 1 MG TAB PO SCH ×2 (10:15→21:07)
[2017-08-01] MEDS: Enoxaparin Sodium 40 MG/0.4 ML SYRINGE SC SCH (10:16)
[2017-08-01] MEDS: Metoclopramide HCl 10 MG TAB PO SCH ×5 (10:30→21:07)
[2017-08-01] MEDS: Acetaminophen 650 MG/20.3 ML UDCUP PER TUBE PRN (17:23)
[2017-08-01] MEDS ORDERED: HYDROcodone/Acetaminophen 5/325 mg Tablet PER TUBE PRN (18:47)
[2017-08-01] MEDS: Amitriptyline HCl 10 MG TAB PO SCH (21:07)
[2017-08-02] MEDS: Enoxaparin Sodium 40 MG/0.4 ML SYRINGE SC SCH (08:41)
[2017-08-02] MEDS: Famotidine 20 MG TAB PO SCH (08:41)
[2017-08-02] MEDS: Insulin Detemir 100 UNITS/ML 5 UNITS in Pre-Filled Syringe SC SCH (08:41)
[2017-08-02] MEDS: Metoclopramide HCl 10 MG TAB PO SCH ×4 (08:42→21:02)
[2017-08-02] MEDS: Glycopyrrolate 1 MG TAB PO SCH ×2 (08:42→21:03)
[2017-08-02] MEDS: HumaLOG 300 UNITS/3 ML VIAL SC PRN ×3 (13:08→21:03)
--- NOTE | 2017-08-02 20:10 | PRG ---
DATE OF SERVICE: 08/02/2017 SUBJECTIVE: The patient is seen and examined at the bedside, does not change in her mental condition . She wakes up and she talks to us and she falls asleep. She has still ups and downs at times. The nurses noticed significant amount of residual on her feeding about 100 mL and despite of not giving her full regimen which is 6 cans of tube feeding a day. OBJECTIVE: VITAL SIGNS: Blood pressure is 95/56, pulse is 88, respiratory rate is 20, pulse oximetry is 95 and temperature is 97.1. Input and output, she had 565 mL in and I do not have any information about her output because she is wearing the diapers. We do not have Norton catheter in place. HEENT: Her head is atraumatic, normocephalic. She is arousable easily. She follows commands, but s he is not clear with her mental status. She moves her all 4 extremities. Her pupils are responding to light properly. NECK: Supple. She still has significant amount of oral secretions. LUNGS: Clear. HEART: S1, S2 normal. ABDOMEN: There is a PEG tube in place. Bowel sounds are presents. No organomegaly. EXTREMITIES: No clubbing, cyanosis, or edema. LABORATORY DATA: No labs for today. IMPRESSION: 1. Sepsis status post completion of course of Zosyn. 2. Bilateral pleural effusions. 3. Hypertension. 4. Copious amounts of oral secretions, improved with amitriptyline. 5. Hyperlipidemia. 6. Protein calorie malnutrition. 7. Chronic kidney disease stage III. 8. Hypothermia, resolved secondary to sepsis. 9. Diabetes mellitus, on long-acting and short-acting insulins, unknown if it is being well-controll ed. PLAN: Apparently the daughter changed her mind and she wanted to go to different hospice program and the appropriate movement was done and we are awaiting for the final approval and most likely she eddie l stay in the hospital over the weekend since Saturday is coming tomorrow. So for now, we will roverto nue her tube feeding as tolerated and free water 45 mL before and after each feeding. She will roverto nue her amitriptyline and she will continue DVT prophylaxis with enoxaparin 40 mg subcutaneously.
[2017-08-02] MEDS: Amitriptyline HCl 10 MG TAB PO SCH (21:02)
[2017-08-03] MEDS: Famotidine 20 MG TAB PO SCH (09:02)
[2017-08-03] MEDS: Enoxaparin Sodium 40 MG/0.4 ML SYRINGE SC SCH (09:02)
[2017-08-03] MEDS: Metoclopramide HCl 10 MG TAB PO SCH ×4 (09:02→20:45)
[2017-08-03] MEDS: Glycopyrrolate 1 MG TAB PO SCH ×2 (09:03→20:46)
[2017-08-03] MEDS: Insulin Detemir 100 UNITS/ML 5 UNITS in Pre-Filled Syringe SC SCH (10:16)
--- NOTE | 2017-08-03 15:16 | PRG ---
DATE OF SERVICE: 08/03/2017 SUBJECTIVE: The patient is seen and examined at the bedside. She is not different than what she was yesterday. She was sleeping when I came to see her, but woke up and she is able to answer my simple questions. She is getting tube feeding with some residuals according to the nurse. OBJECTIVE: VITAL SIGNS: Blood pressure is fluctuating from 98-146, diastolic is fluctuating between 63 and 77, temperature is 97.4, pulse is 73, respiratory rate is 18, and O2 saturation is 94% on room air. She has much less oral secretions today, although she still has deep cough with some chest congestion. HEENT: Eyes; pupils are responding to light properly. Sclerae is nonicteric. LUNGS: Several rales bilaterally in the mid and lower parts of both lungs. HEART: S1 and S2 normal. ABDOMEN: Soft, nontender and nondistended. The PEG tube is in place. EXTREMITIES: No clubbing, cyanosis or edema. NEUROLOGIC: She follows my simple commands. She is able to move her all 4 extremities, but she is n ot focal on my examination. LABORATORY DATA: None except for glycemia, which is ranging between 83 and 206. IMPRESSION: 1. Sepsis status post completion of a course of Zosyn. 2. Bilateral pleural effusions. 3. Hypertension. 4. Copious amounts of oral secretions improved with amitriptyline. 5. Hyperlipidemia. 6. Protein-caloric malnutrition. 7. Chronic kidney disease stage 3. 8. Hypothermia. 9. Diabetes mellitus, long-acting and short-acting insulins, relatively well controlled. PLAN: Apparently, the daughter changed her mind and requested different hospice services. We are aw aiting for approval and finalization of the process and she will be transferred to the care as soon a s at this is arranged. For now, we will continue her DVT prophylaxis with Lovenox and also she will continue her tube feeding.
[2017-08-03] MEDS: Melatonin 3 MG TAB PER TUBE PRN (20:45)
[2017-08-03] MEDS: Amitriptyline HCl 10 MG TAB PO SCH (20:46)
[2017-08-04] MEDS: Glycopyrrolate 1 MG TAB PO SCH ×2 (09:02→21:36)
[2017-08-04] MEDS: Famotidine 20 MG TAB PO SCH (09:02)
[2017-08-04] MEDS: Metoclopramide HCl 10 MG TAB PO SCH ×4 (09:02→21:36)
[2017-08-04] MEDS: Enoxaparin Sodium 40 MG/0.4 ML SYRINGE SC SCH (09:03)
[2017-08-04] MEDS: Insulin Detemir 100 UNITS/ML 5 UNITS in Pre-Filled Syringe SC SCH (10:46)
--- NOTE | 2017-08-04 15:41 | PDOC.PN ---
- Subjective Encounter Start Date: 08/04/17 Encounter Start Time: 10:20 Pt seen for followup re: physical deconditioning. Pt not answering questions, unable to complete ROS. - Objective Resuscitation Status: Resuscitation Status DNR:Do Not Resuscitate MAR Reviewed: Yes Vital Signs & Weight: Vital Signs (12 hours) Temp Pulse Resp BP Pulse Ox 08/04/17 08:00 71 20 116/68 92 L 08/04/17 07:14 97.2 F L 72 16 92 L Weight Admit Weight 113 lb 11.2 oz Weight 113 lb 11.2 oz I&O: 08/03/17 08/04/17 08/05/17 06:59 06:59 06:59 Intake Total 1615 2230 230 Balance 1615 2230 230 Result Diagrams: 07/28/17 03:36 07/29/17 09:15 Additional Labs: Accuchecks 08/04/17 08/04/17 08/03/17 11:56 05:59 21:18 POC Glucose 220 H 180 H 71 Phys Exam - Physical Examination Frail-appearing HEENT: moist MMs Neck: supple Diminished air entry claribel Cardiovascular: RRR Gastrointestinal: soft Neurological: moves all 4 limbs Psychiatric: normal affect Dx/Plan (1) Physical deconditioning Code(s): R53.81 - OTHER MALAISE Status: Chronic (2) Protein-calorie malnutrition, moderate Code(s): E44.0 - MODERATE PROTEIN-CALORIE MALNUTRITION Status: Chronic (3) DM2 (diabetes mellitus, type 2) Status: Chronic Qualifiers: Diabetes mellitus complication status: with hyperglycemia Diabetes mellitus alf insulin use: with watermelon inspector use Qualified Code(s): E11.65 - Type 2 diabetes mellitus with hyperglycemia; Z79.4 - technician terminal and repeater (current) use of insulin; Z79.4 - technician terminal and repeater (current) use of insulin; Z79.4 - [facility] ( current) use of insulin; Z79.4 - technician terminal and repeater (current) use of insulin Comment: is labile with fingerstick dipping into [phone] (4) HLD (hyperlipidemia) Code(s): E78.5 - HYPERLIPIDEMIA, UNSPECIFIED Status: Chronic Qualifiers: Hyperlipidemia type: unspecified Qualified Code(s): E78.5 - Hyperlipidemia , unspecified (5) HTN (hypertension) Code(s): I10 - ESSENTIAL (PRIMARY) HYPERTENSION Status: Chronic Qualifiers: Hypertension type: essential hypertension Qualified Code(s): I10 - Essential (primary) hypertension (6) Hypothermia Code(s): T68.XXXA - HYPOTHERMIA, INITIAL ENCOUNTER Status: Chronic Comment: Patient with recurrent hypothermia past two admissions, needs to have room kept director index order to prevent recurrence - Plan * . Pt is off of antibiotics. Awaiting NH acceptance for hospice care. Review of Systems - Medications/Allergies Allergies/Adverse Reactions: Allergies Allergy/AdvReac Type Severity Reaction Status Date / Time No Known Drug Allergies Allergy Verified 07/13/17 22:36 Medications: Current Medications Acetaminophen (Tylenol Elixir) 650 mg PER TUBE Q4H PRN PRN Reason: Headache/Fever or Pain Last Admin: 08/01/17 17:23 Dose: 650 mg Hydrocodone Bitart/Acetaminophen ([place] 5/325) 1 tab PER TUBE Q6H PRN PRN Reason: Pain Last Admin: 08/01/17 21:07 Dose: 1 tab Albuterol Sulfate (Albuterol Sulfate) 1.25 mg NEB Q6H PRN PRN Reason: SOB &/or Wheezing Amitriptyline HCl (Elavil) 10 mg PO HS [facility] Last Admin: 08/03/17 20:46 Dose: 10 mg Dextrose/Water (Dextrose 50%) 25 gm IVP PRN PRN PRN Reason: HYPOGLYCEMIA PROTOCOL Last Admin: 07/30/17 21:19 Dose: 25 gm Enoxaparin Sodium (Lovenox) 40 mg SC 0900 [facility] Last Admin: 08/04/17 09:03 Dose: 40 mg Famotidine (Pepcid) 20 mg PO DAILY [facility] Last Admin: 08/04/17 09:02 Dose: 20 mg Glucagon (Glucagon) 1 mg IM PRN PRN PRN Reason: HYPOGLYCEMIA PROTOCOL Glycopyrrolate (Robinul) 0.5 mg PO BID [facility] Last Admin: 08/04/17 09:02 Dose: 0.5 mg Hydralazine HCl (Apresoline) 10 mg SLOW IVP Q6H PRN PRN Reason: SBP Greater Than 170 Last Admin: 07/24/17 01:02 Dose: 10 mg Dextrose/Water (D5w) 1,000 mls @ 0 mls/hr IV INF PRN; As Directed PRN Reason: HYPOGLYCEMIA PROTOCOL Insulin Detemir 5 units/ (Miscellaneous Medication) 0.05 mls @ 0 mls/hr SC QAM [facility] Last Admin: 08/04/17 10:46 Dose: 0.05 mls Insulin Human Lispro (Humalog) 0 units SC .MILD SLIDING SCALE PRN; Protocol PRN Reason: MILD SLIDING SCALE Last Admin: 08/02/17 21:03 Dose: 2 unit Melatonin (Melatonin) 3 mg PER TUBE HSPRN PRN PRN Reason: Insomnia Last Admin: 08/03/17 20:45 Dose: 3 mg Metoclopramide HCl (Reglan) 10 mg PO ACHS [facility] Last Admin: 08/04/17 10:51 Dose: 10 mg Sodium Chloride (Flush - Normal Saline) 10 ml IVF Q12HR [facility] Last Admin: 08/04/17 09:03 Dose: 10 ml Sodium Chloride (Flush - Normal Saline) 10 ml IVF PRN PRN PRN Reason: Saline Flush Last Admin: 07/27/17 14:30 Dose: 10 ml
[2017-08-04] MEDS: Melatonin 3 MG TAB PER TUBE PRN (21:36)
[2017-08-04] MEDS: Amitriptyline HCl 10 MG TAB PO SCH (21:36)
[2017-08-05 08:03] VITALS: BP 147/83; TEMP 97
[2017-08-05] MEDS: Insulin Detemir 100 UNITS/ML 5 UNITS in Pre-Filled Syringe SC SCH (08:45)
[2017-08-05] MEDS: Famotidine 20 MG TAB PO SCH (08:46)
[2017-08-05] MEDS: Metoclopramide HCl 10 MG TAB PO SCH ×2 (08:46→12:21)
[2017-08-05] MEDS: Glycopyrrolate 1 MG TAB PO SCH (08:46)
[2017-08-05] MEDS: Enoxaparin Sodium 40 MG/0.4 ML SYRINGE SC SCH (08:46)
--- NOTE | 2017-08-05 11:05 | DIS ---
TRANSFER OF CARE NOTE DISCHARGE DISPOSITION: Home with hospice. PRIMARY CARE PROVIDER: Dr. Neo Arellano FINAL DIAGNOSES: 1. 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 2. Hypernatremia. 3. Sepsis. 4. Acute worsening of chronic kidney disease stage 3. 5. Diabetes mellitus type 2. 6. Dyslipidemia. 7. Hypertension. 8. Aspiration pneumonia, resolved. DISCHARGE MEDICATIONS: All per tube, Coenzyme Q10 100 mg per tube daily, thiamine 100 mg per tube da alem, Zoloft 25 mg per tube daily, transdermal scopolamine on skin every 3 days, Florastor 250 mg per tube daily, Exelon patch 4.6 mg per tube was discontinued, Pepcid 20 mg per tube twice a day, Lipitor 10 mg per tube at bedtime, aspirin 81 mg per tube daily, amlodipine 5 mg per tube daily, Tylenol 650 mg p.o. q.4 hours p.r.n. ALLERGIES: No known drug allergies. CODE STATUS: DNR. HOSPITAL COURSE: The patient admitted to the hospital through [facility] with c ough, congestion, and probable pneumonia and started on IV antibiotics. The patient was seen on day [address] Bassam Sauer. His diagnosis was aspiration pneumonia. Switched her to Zos yn, discontinued meropenem and vancomycin. INITIAL LABORATORY: White count 2.1, hemoglobin 8.7, platelet count 157,000. Sodium 153, chloride 1 15, potassium 3.8. GFR 56, creatinine 1.14, BUN 25. Urine culture grew Enterococcus sensitive to Zo syn. Antibiotics eventually stopped. Palliative Care, Hospice was eventually consulted. The patient is now being discharged home on hospi ce, currently have no one here to document what medicine she will be on. This will be left up to hos pice to make decisions on changing her home medicines or adding other medicines and I will of course be available until she is discharged to discuss this with hospice.
--- NOTE | 2017-08-10 20:52 | EKG ---
Test Reason : Blood Pressure : / mmHG Vent. Rate : 071 BPM Atrial Rate : 071 BPM P-R Int : 160 ms QRS Dur : 090 ms QT Int : 460 ms P-R-T Axes : 081 033 089 degrees QTc Int : 499 ms Normal sinus rhythm Possible Left atrial enlargement Left ventricular hypertrophy Cannot rule out Septal infarct , age undetermined T wave abnormality, consider lateral ischemia Abnormal ECG Confirmed by JASMYN HARDEN, KLAUDIA ([id number]), design editor PRATIMA FERRARO ([id number]) on 08/10/2017 8:52:17 PM Referred By: Confirmed By:KLAUDIA VINES MD
== END 2017-08-05 17:09 | disposition hospice, home (50) | DRG 871 ==
LOC: ERS 18:31 → T4-B 20:00
PROVIDERS: ADMIT Internal Medicine; ATTEND Internal Medicine
PROC: 30233N1 Transfusion of Nonautologous Red Blood Cells into Peripheral Vein, Percutaneous Approach (ICD-10-PCS; principal; 2017-07-16)
DX: A41.9 Sepsis, unspecified organism (principal); J69.0 Pneumonitis due to inhalation of food and vomit; J96.00 Acute respiratory failure, unspecified whether with hypoxia or hypercapnia; N17.9 Acute kidney failure, unspecified; E87.0 Hyperosmolality and hypernatremia; E44.0 Moderate protein-calorie malnutrition; N39.0 Urinary tract infection, site not specified; Z68.1 Body mass index [BMI] 19.9 or less, adult; E11.22 Type 2 diabetes mellitus with diabetic chronic kidney disease; I12.9 Hypertensive chronic kidney disease with stage 1 through stage 4 chronic kidney disease, or unspecified chronic kidney disease; I69.391 Dysphagia following cerebral infarction; R13.12 Dysphagia, oropharyngeal phase; N18.3 Chronic kidney disease, stage 3 (moderate); R65.20 Severe sepsis without septic shock; Z66 Do not resuscitate; B95.2 Enterococcus as the cause of diseases classified elsewhere; E78.5 Hyperlipidemia, unspecified; D64.9 Anemia, unspecified; E11.65 Type 2 diabetes mellitus with hyperglycemia; E11.319 Type 2 diabetes mellitus with unspecified diabetic retinopathy without macular edema; Z93.1 Gastrostomy status; Z79.82 Long term (current) use of aspirin; Z79.4 Long term (current) use of insulin; Z79.899 Other long term (current) drug therapy
CPT/HCPCS: 36415; 36416; 36430; 51701; 71010; 71250; 80048; 80053; 81003; 81015; 83605; 83735; 83880; 85025; 86850; 86900; 86901; 87040; 87077; 87086; 87186; 87324; 87449; 87804; 93005; 94640; 94760; 96360; 96361; 96365; A4216; A4353; G8978-GP-CM; G8979-GP-CL; J0360; J1644; J1650; J1815; J1940; J1956; J2543; J2920; J3370; J7050; P9016; S0028